=== PATIENT | female | born 1950 | race African-American/Black ===

== ENCOUNTER 2023-11-04 10:13 | Emergency (ER) | payer MEDICARE ==
--- NOTE | 2023-11-04 10:45 | ED ---
General Adult HPI - General Chief complaint: GI Bleed Stated complaint: Rectal bleeding Time Seen by Provider: 11/04/23 10:20 Source: patient, RN notes reviewed, old records reviewed Mode of arrival: ambulatory Limitations: no limitations - History of Present Illness Initial comments: This is a 73-year-old female with a past medical history significant for colectomy. Patient is to she had the colectomy in 2007. Patient states she has not had a colonoscopy since then. Patient states she has been having bright red blood per rectum occasionally since the last 6 months. Patient states is getting progressively worse and now is happening quite often. Patient denies any abdominal pain. Patient denies any chest pain difficulty breathing or shortness of breath. Patient states she is mildly lightheaded. Patient denies any fevers chills or cough or patient is any heavy diarrhea. Patient [place] any nausea vomiting. - Related Data Home Medications Medication Instructions Recorded Confirmed Losartan/Hydrochlorothiazide 1 tab PO DAILY 05/17/14 11/04/23 [Losartan-Hctz 100-25 mg Tab] ALPRAZolam [Xanax] 0.25 mg PO TID PRN 11/04/23 11/04/23 Albuterol Sulfate [Ventolin HFA] 2 puff INHALATION RT-Q6H PRN 11/04/23 11/04/23 DULoxetine HCL [Cymbalta] 60 mg PO BID 11/04/23 11/04/23 Empagliflozin [Jardiance] 25 mg PO DAILY 11/04/23 11/04/23 Meloxicam [Mobic] 7.5 mg PO BID 11/04/23 11/04/23 amLODIPine [Norvasc] 10 mg PO DAILY 11/04/23 11/04/23 glipiZIDE [Glucotrol] 5 mg PO BID 11/04/23 11/04/23 hydrOXYzine HCL [Atarax] 25 mg PO BID 11/04/23 11/04/23 traZODone HCL [Desyrel] 100 mg PO HS 11/04/23 11/04/23 Previous Rx's Medication Instructions Recorded Montelukast [Singulair] 10 mg PO HS 14 Days tab 01/23/15 Allergies Allergy/AdvReac Type Severity Reaction Status Date / Time fluticasone furoate Allergy "Respiratory Verified 11/04/23 11:34 [From [facility]] Issues" nickel [Nickel] Allergy Rash/Hives Verified 11/04/23 11:33 vilanterol Allergy "Respiratory Verified 11/04/23 11:34 [From [employer]] Issues" Review of Systems ROS Statement: Those systems with pertinent positive or pertinent negative responses have been documented in the HPI. ROS Other: All systems not noted in ROS Statement are negative. Past Medical History Past Medical History: Asthma, Diabetes Mellitus, Fibromyalgia, Hypertension, Osteoarthritis (OA), Sleep Apnea/CPAP/BIPAP Additional Past Medical History / Comment(s): IBS, HX POLYPS, STATES NOT CURRENTLY TAKING ANY MEDS FOR DIABETES BUT HAS IN PAST, HAS HEEL SPUR ON LEFT FOOT, CURRENTLY USING A CRUTCH History of Any Multi-Drug Resistant Organisms: None Reported Past Surgical History: Bowel Resection, Hysterectomy, Joint Replacement, Orthopedic Surgery Additional Past Surgical History / Comment(s): COLECTOMY for polyps, LEFT KNEE REPLACEMENT, RT ROTATOR CUFF Past Anesthesia/Blood Transfusion Reactions: No Reported Reaction Past Psychological History: Anxiety, Depression Past Alcohol Use History: None Reported Past Drug Use History: None Reported - Past Family History Father Family Medical History: Cancer Additional Family Medical History / Comment(s): Father at age 79 from lymphoma. Mother Family Medical History: Cancer Additional Family Medical History / Comment(s): Mother at age 82 from colon cancer. Brother(s) Additional Family Medical History / Comment(s): Patient has 1 brother with no major medical problems. Patient does not have any sisters. She has one son that is healthy. General Exam - General Exam Comments Initial Comments: GENERAL: Patient is well-developed and well-nourished. Patient is nontoxic and well- hydrated and is in no acute distress. ENT: Neck is soft and supple. No significant lymphadenopathy is noted. Oropharynx is clear. Moist mucous membranes. Neck has full range of motion without eliciting any pain. EYES: The sclera were anicteric and conjunctiva were pink and moist. Extraocular movements were intact and pupils were equal round and reactive to light. Eyelids were unremarkable. PULMONARY: Unlabored respirations. Good breath sounds bilaterally. No audible rales rhonchi or wheezing was noted. CARDIOVASCULAR: There is a regular rate and rhythm without any murmurs gallops or rubs. ABDOMEN: Soft and nontender with normal bowel sounds. RECTAL: No obvious hemorrhoids no area of bleeding noted SKIN: Skin is clear with no lesions or rashes and otherwise unremarkable. NEUROLOGIC: Patient is alert and oriented x3. Cranial nerves II through XII are grossly intact. Motor and sensory are also intact. Normal speech, volume and content. Symmetrical smile. MUSCULOSKELETAL: Normal extremities with adequate strength and full range of motion. LYMPHATICS: No significant lymphadenopathy is noted PSYCHIATRIC: Normal psychiatric evaluation. Limitations: no limitations Course Vital Signs 11/04/23 11/04/23 11/04/23 10:16 10:45 11:05 Temperature 97.7 F 98.5 F Pulse Rate 95 80 76 Respiratory 16 17 18 Rate Blood Pressure 177/75 139/86 120/63 O2 Sat by Pulse 99 95 95 Oximetry 11/04/23 11/04/23 12:17 13:07 Temperature 97.9 F Pulse Rate 78 81 Respiratory 17 17 Rate Blood Pressure 147/73 145/78 O2 Sat by Pulse 97 96 Oximetry Medical Decision Making - Medical Decision Making Was pt. sent in by a medical professional or institution (, PA, SCADA OPERATOR, urgent care, hospital, or longterm...) When possible be specific @ -No Did you speak to anyone other than the patient for history (EMS, parent, family, police, friend...)? What history was obtained from this source @ -No Did you review nursing and triage notes (agree or disagree)? Why? @ -I reviewed and agree with nursing and triage notes Were old charts reviewed (outside hosp., previous admission, EMS record, old EKG, old radiological studies, urgent care reports/EKG's, longterm records)? Report findings @ -No old charts were reviewed Differential Diagnosis (chest pain, altered mental status, abdominal pain women, abdominal pain men, vaginal bleeding, weakness, fever, dyspnea, syncope, headache, dizziness, GI bleed, back pain, seizure, CVA, palpatations, mental health, musculoskeletal)? @ -Differential GI Bleed: Esophageal varices, aortoenteric fistula, Nelia-Persaud, gastritis, peptic ulcer disease, diverticulosis, inflammatory bowel disease, hemorrhoids, fissure, colitis, malignancy, Meckels diverticulum, this is not meant to be an all- inclusive list. EKG interpreted by me (3pts min.). @ -As above X-rays interpreted by me (1pt min.). @ -None done CT interpreted by me (1pt min.). @ -None done U/S interpreted by me (1pt. min.). @ -None done What testing was considered but not performed or refused? (CT, X-rays, U/S, labs)? Why? @ -None What meds were considered but not given or refused? Why? @ -None Did you discuss the management of the patient with other professionals (christopher craig i.eHuber Martin, PA, SCADA OPERATOR, lab, RT, psych nurse, social research assistant, long distance operator, teacher, community service patrol officer, case filler)? Give summary @ -No Was smoking cessation discussed for >3mins.? @ -No Was critical care preformed (if so, how long)? @ -No Were there social determinants of health that impacted care today? How? (Homelessness, low income, unemployed, alcoholism, drug addiction, transportation, low edu. Level, literacy, decrease access to med. care, long term, rehab)? @ -No Was there de-escalation of care discussed even if they declined (Discuss DNR or withdrawal of care, Hospice)? DNR status @ -No What co-morbidities impacted this encounter? (DM, HTN, Smoking, COPD, CAD, Cancer, CVA, ARF, Chemo, Hep., AIDS, mental health diagnosis, sleep apnea, morbid obesity)? @ -None Was patient admitted / discharged? Hospital course, mention meds given and route, prescriptions, significant lab abnormalities, going to OR and other pertinent info. @ -I went back in the room and told the patient her lab work was normal and that I suggested admission because we have a GI doctor this week. Patient states she already has a GI doctor appointment later this week so she will be following up with him. Patient states she does not want to stay because her lab work is normal and she will follow-up outpatient. Undiagnosed new problem with uncertain prognosis? @ -No Drug Therapy requiring intensive monitoring for toxicity (Heparin, Nitro, Insulin, Cardizem)? @ -No Were any procedures done? @ -No Diagnosis/symptom? @ -GI bleed Acute, or Chronic, or Acute on Chronic? @ -Acute Uncomplicated (without systemic symptoms) or Complicated (systemic symptoms)? @ -Complicated Side effects of treatment? @ -No Exacerbation, Progression, or Severe Exacerbation? @ -No Poses a threat to life or bodily function? How? (Chest pain, [place], [place], pneumonia, PE, COPD, DKA, ARF, appy, cholecystitis, CVA, Diverticulitis, Homicidal, [place] icidal, threat to staff... and all critical care pts) @ -No - Lab Data Result diagrams: 11/04/23 10:44 11/04/23 10:44 Lab Results 11/04/23 11/04/23 11/04/23 Range/Units 10:35 10:40 10:44 WBC 4.8 (3.8-10.6) k/uL RBC 5.02 (3.80-5.40) m/uL Hgb 13.3 (11.4-16.0) gm/dL Hct 42.3 (34.0-46.0) % MCV 84.2 (80.0-100.0) fL MCH 26.4 (25.0-35.0) pg MCHC 31.4 (31.0-37.0) g/dL RDW 15.3 (11.5-15.5) % Plt Count 361 (150-450) k/uL MPV 7.1 Neutrophils % 52 % Lymphocytes % 38 % Monocytes % 6 % Eosinophils % 1 % Basophils % 1 % Neutrophils # 2.5 (1.3-7.7) k/uL Lymphocytes # 1.8 (1.0-4.8) k/uL Monocytes # 0.3 (0-1.0) k/uL Eosinophils # 0.1 (0-0.7) k/uL Basophils # 0.0 (0-0.2) k/uL Hypochromasia Slight PT (10.0-12.5) sec INR (<1.2) APTT (22.0-30.0) sec Sodium (137-145) mmol/L Potassium (3.5-5.1) mmol/L Chloride (98-107) mmol/L Carbon Dioxide (22-30) mmol/L Anion Gap mmol/L BUN (7-17) mg/dL Creatinine (0.52-1.04) mg/dL Est GFR (CKD-EPI)AfAm (>60 ml/min/1.73 sqM) Est GFR (CKD-EPI)NonAf (>60 ml/min/1.73 sqM) Glucose (74-99) mg/dL Calcium (8.4-10.2) mg/dL Magnesium (1.6-2.3) mg/dL Total Bilirubin (0.2-1.3) mg/dL AST (14-36) U/L ALT (4-34) U/L Alkaline Phosphatase (38-126) U/L Troponin I (0.000-0.034) ng/mL Total Protein (6.3-8.2) g/dL Albumin (3.5-5.0) g/dL Blood Type O Positive Blood Type Confirm Blood Type Recheck No Previous Record Bld Type Recheck Status CABO Indicated Antibody Screen NEGATIVE Spec Expiration Date 11/07/2023234311/04/23 11/04/23 11/04/23 Range/Units 10:44 10:44 10:44 WBC (3.8-10.6) k/uL RBC (3.80-5.40) m/uL Hgb (11.4-16.0) gm/dL Hct (34.0-46.0) % MCV (80.0-100.0) fL MCH (25.0-35.0) pg MCHC (31.0-37.0) g/dL RDW (11.5-15.5) % Plt Count (150-450) k/uL MPV Neutrophils % % Lymphocytes % % Monocytes % % Eosinophils % % Basophils % % Neutrophils # (1.3-7.7) k/uL Lymphocytes # (1.0-4.8) k/uL Monocytes # (0-1.0) k/uL Eosinophils # (0-0.7) k/uL Basophils # (0-0.2) k/uL Hypochromasia PT 10.2 (10.0-12.5) sec INR 0.9 (<1.2) APTT 25.9 (22.0-30.0) sec Sodium 141 (137-145) mmol/L Potassium 4.1 (3.5-5.1) mmol/L Chloride 107 (98-107) mmol/L Carbon Dioxide 27 (22-30) mmol/L Anion Gap 7 mmol/L BUN 15 (7-17) mg/dL Creatinine 0.63 (0.52-1.04) mg/dL Est GFR (CKD-EPI)AfAm >90 (>60 ml/min/1.73 sqM) Est GFR (CKD-EPI)NonAf 89 (>60 ml/min/1.73 sqM) Glucose 132 H (74-99) mg/dL Calcium 9.6 (8.4-10.2) mg/dL Magnesium 2.1 (1.6-2.3) mg/dL Total Bilirubin 1.1 (0.2-1.3) mg/dL AST 27 (14-36) U/L ALT 24 (4-34) U/L Alkaline Phosphatase 126 (38-126) U/L Troponin I <0.012 (0.000-0.034) ng/mL Total Protein 7.5 (6.3-8.2) g/dL Albumin 4.7 (3.5-5.0) g/dL Blood Type Blood Type Confirm Blood Type Recheck Bld Type Recheck Status Antibody Screen Spec Expiration Date 11/04/23 Range/Units 11:35 WBC (3.8-10.6) k/uL RBC (3.80-5.40) m/uL Hgb (11.4-16.0) gm/dL Hct (34.0-46.0) % MCV (80.0-100.0) fL MCH (25.0-35.0) pg MCHC (31.0-37.0) g/dL RDW (11.5-15.5) % Plt Count (150-450) k/uL MPV Neutrophils % % Lymphocytes % % Monocytes % % Eosinophils % % Basophils % % Neutrophils # (1.3-7.7) k/uL Lymphocytes # (1.0-4.8) k/uL Monocytes # (0-1.0) k/uL Eosinophils # (0-0.7) k/uL Basophils # (0-0.2) k/uL Hypochromasia PT (10.0-12.5) sec INR (<1.2) APTT (22.0-30.0) sec Sodium (137-145) mmol/L Potassium (3.5-5.1) mmol/L Chloride (98-107) mmol/L Carbon Dioxide (22-30) mmol/L Anion Gap mmol/L BUN (7-17) mg/dL Creatinine (0.52-1.04) mg/dL Est GFR (CKD-EPI)AfAm (>60 ml/min/1.73 sqM) Est GFR (CKD-EPI)NonAf (>60 ml/min/1.73 sqM) Glucose (74-99) mg/dL Calcium (8.4-10.2) mg/dL Magnesium (1.6-2.3) mg/dL Total Bilirubin (0.2-1.3) mg/dL AST (14-36) U/L ALT (4-34) U/L Alkaline Phosphatase (38-126) U/L Troponin I (0.000-0.034) ng/mL Total Protein (6.3-8.2) g/dL Albumin (3.5-5.0) g/dL Blood Type Blood Type Confirm O Positive Blood Type Recheck Bld Type Recheck Status Antibody Screen Spec Expiration Date Disposition Clinical Impression: GI bleed Disposition: HOME SELF-CARE Instructions (If sedation given, give patient instructions): Gastrointestinal Bleeding (ED) Additional Instructions: Patient should follow-up with a GI doctor as scheduled Is patient prescribed a controlled substance at d/c from ED?: No Referrals: Chadd Smith MD [Primary Care Provider] - 1-2 days Time of Disposition: 13:31
[2023-11-04] MEDS: SODIUM CHLORIDE 0.9% 500 ML 500 ML IV STA (10:47)
[2023-11-04 11:15] LABS: Basophils % (A) 1 %; Eosinophils # (A) 0.1 k/uL (0-0.7); Eosinophils % (A) 1 %; HCT 42.3 % (34.0-46.0); HGB 13.3 gm/dL (11.4-16.0); Hypochromasia Slight; Lymphocytes # (A) 1.8 k/uL (1.0-4.8); Lymphocytes % (A) 38 %; MCH 26.4 pg (25.0-35.0); MCHC 31.4 g/dL (31.0-37.0); MCV 84.2 fL (80.0-100.0); Mean Platelet Volume 7.1; Monocytes # (A) 0.3 k/uL (0-1.0); Monocytes % (A) 6 %; Neutrophils # (A) 2.5 k/uL (1.3-7.7); Neutrophils % (A) 52 %; Platelet Count 361 k/uL (150-450); RBC 5.02 m/uL (3.80-5.40); RDW 15.3 % (11.5-15.5); WBC 4.8 k/uL (3.8-10.6)
[2023-11-04 11:23] LABS: ALT 24 U/L (4-34); AST 27 U/L (14-36); African American GFR (CKD) >90 (>60 ml/min/1.73 sqM); Albumin 4.7 g/dL (3.5-5.0); Alkaline Phosphatase 126 U/L (38-126); Anion Gap 7 mmol/L; Blood Urea Nitrogen 15 mg/dL (7-17); Calcium 9.6 mg/dL (8.4-10.2); Carbon Dioxide 27 mmol/L (22-30); Chloride 107 mmol/L (98-107); Glucose 132 mg/dL (74-99); Magnesium 2.1 mg/dL (1.6-2.3); Non-African American GFR(CKD) 89 (>60 ml/min/1.73 sqM); Potassium 4.1 mmol/L (3.5-5.1); Sodium 141 mmol/L (137-145); Total Bilirubin 1.1 mg/dL (0.2-1.3); Total Protein 7.5 g/dL (6.3-8.2)
[2023-11-04 11:28] LABS: INR 0.9 (<1.2); Partial Thromboplastin Time 25.9 sec (22.0-30.0); Prothrombin Time 10.2 sec (10.0-12.5)
[2023-11-04 12:26] VITALS: RESP 17; TEMP 97.9
[2023-11-04 13:08] VITALS: BP 145/78; PULSE 81
== END 2023-11-04 13:43 | disposition home or self-care (01) ==
LOC: EC 10:13
DX: K92.2 Gastrointestinal hemorrhage, unspecified (principal); Z90.49 Acquired absence of other specified parts of digestive tract
CPT/HCPCS: 36415; 80053; 83735; 84484; 85025; 85610; 85730; 86850; 86900; 86901; 96360; 99285

== ENCOUNTER 2024-10-16 10:30 | Inpatient (IN) | payer MEDICARE ==
--- NOTE | 2024-10-16 11:11 | ED ---
GI Bleed HPI - General Chief complaint: GI Bleed Stated complaint: Blood in Stool Time Seen by Provider: 10/16/24 11:11 Source: patient Mode of arrival: ambulatory Limitations: no limitations - History of Present Illness Initial comments: 74-year-old female with a past medical history significant of diabetes mellitus, asthma, hypertension, fibromyalgia and IBS presenting to the ER for evaluation of blood in stool. Patient reports for the past 2 years she has been having progressively worsening blood in her stool. She states it was bright red then black and tarry and recently it is brown. Patient is not on blood thinners. She states she is following up with a colorectal surgeon, Dr. Reyes, out of [place], [place]. She was scheduled for a hemorrhoidectomy on 10/13/[address] Reyes but she cancelled it as her hgb was 9. Patient reports over the past 3 months she has lost approximately 34 pounds and admits to night sweats and chills. Patient denies known fevers, nausea, vomiting. Patient states she feels extremely weak with mild shortness of breath. Denies chest pain. Denies a history of ulcerative colitis, Crohn's disease or diverticulitis. Patient denies any prior abdominal surgeries but upon chart review there appears to be a history of a bowel resection, patient denies this on multiple occassions. Admits to hysterectomy. Patient had colonoscopy one year ago and had polyps removed. Patient states she stopped taking her antihypertensive and diabetes medications as prescribed by PCP as she has been feeling unwell. Patient is undergoing iron transfusion following up with Dr. Gonzalez. Patient is a Adventist and refuses blood products. No other complaints at this time. History is slightly limited as patient is a poor historian. - Related Data Home Medications Medication Instructions Recorded Confirmed Albuterol Sulfate [Ventolin HFA] 2 puff INHALATION RT-Q6H PRN 11/04/23 10/16/24 DULoxetine HCL [Cymbalta] 60 mg PO DAILY 11/04/23 10/16/24 Meloxicam [Mobic] 7.5 mg PO DAILY PRN 11/04/23 10/16/24 hydrOXYzine HCL [Atarax] 25 mg PO BID 11/04/23 10/16/24 traZODone HCL [Desyrel] 100 mg PO HS 11/04/23 10/16/24 Hydrocortisone Oint 1 applic TOPICAL BID PRN 10/04/24 10/16/24 [Hydrocortisone 2.5% Oint] Loratadine 10 mg PO DAILY 10/04/24 10/16/24 Montelukast [Singulair] 10 mg PO DAILY 10/04/24 10/16/24 Gabapentin [Neurontin] 300 mg PO BID 10/16/24 10/16/24 Multivitamins, Thera [Multivitamin 1 tab PO DAILY 10/16/24 10/16/24 (formulary)] Potassium Chloride [Klor-Con 8] 8 meq PO DAILY 10/16/24 10/16/24 Allergies Allergy/AdvReac Type Severity Reaction Status Date / Time fluticasone furoate Allergy "Respiratory Verified 10/16/24 13:44 [From Breo Ellipta] Issues" nickel [Nickel] Allergy Rash/Hives Verified 10/16/24 13:44 vilanterol Allergy "Respiratory Verified 10/16/24 13:44 [From Breo Ellipta] Issues" Review of Systems ROS Statement: Those systems with pertinent positive or pertinent negative responses have been documented in the HPI. ROS Other: All systems not noted in ROS Statement are negative. Past Medical History Past Medical History: Asthma, Diabetes Mellitus, Fibromyalgia, Hypertension, Osteoarthritis (OA), Sleep Apnea/CPAP/BIPAP Additional Past Medical History / Comment(s): IBS, HX POLYPS, STATES NOT CURRENTLY TAKING ANY MEDS FOR DIABETES BUT HAS IN PAST, HAS HEEL SPUR ON LEFT FOOT, CURRENTLY USING A CRUTCH History of Any Multi-Drug Resistant Organisms: None Reported Past Surgical History: Bowel Resection, Hysterectomy, Joint Replacement, Orthopedic Surgery Additional Past Surgical History / Comment(s): COLECTOMY for polyps, LEFT KNEE REPLACEMENT, RT ROTATOR CUFF Past Anesthesia/Blood Transfusion Reactions: No Reported Reaction Past Psychological History: Anxiety, Depression Smoking Status: Never smoker - Past Family History Father Family Medical History: Cancer Additional Family Medical History / Comment(s): Father at age 79 from lymphoma. Mother Family Medical History: Cancer Additional Family Medical History / Comment(s): Mother at age 82 from colon cancer. Brother(s) Additional Family Medical History / Comment(s): Patient has 1 brother with no major medical problems. Patient does not have any sisters. She has one son that is healthy. General Exam Limitations: no limitations General appearance: alert, in no apparent distress Respiratory exam: Present: normal lung sounds bilaterally. Absent: respiratory distress, wheezes, rales, rhonchi, stridor Cardiovascular Exam: Present: regular rate, normal rhythm, normal heart sounds. Absent: systolic murmur, diastolic murmur, rubs, gallop, clicks GI/Abdominal exam: Present: soft, tenderness (LLQ), normal bowel sounds Rectal exam: Present: normal inspection, normal rectal tone Extremities exam: Present: normal inspection, full ROM, normal capillary refill. Absent: tenderness, pedal edema, joint swelling, calf tenderness Neurological exam: Present: alert, oriented X3, CN II-XII intact Skin exam: Present: warm, dry, intact, normal color. Absent: rash Course Vital Signs 10/16/24 10/16/24 10:39 14:41 Temperature 97.6 F Pulse Rate 98 88 Respiratory 20 18 Rate Blood Pressure 132/74 127/68 O2 Sat by Pulse 100 96 Oximetry - Reevaluation(s) Reevaluation #1: 10/16/24 14:16 Case discussed with on-call general surgery, Dr. Monroe. She is agreeable to be on consult with medicine admission. 10/16/24 14:43 Case discussed with , for admission. Medical Decision Making - Medical Decision Making Was pt. sent in by a medical professional or institution (Dr. PA, SERVICE ORDER TAKER, urgent care, hospital, or long-term...) When possible be specific @ -No Did you speak to anyone other than the patient for history (EMS, parent, family, police, friend...)? What history was obtained from this source @ -No Did you review nursing and triage notes (agree or disagree)? Why? @ -I reviewed and agree with nursing and triage notes Were old charts reviewed (outside hosp., previous admission, EMS record, old EKG, old radiological studies, urgent care reports/EKG's, long-term records)? Report findings @ -Prior ER visits Differential Diagnosis (chest pain, altered mental status, abdominal pain women, abdominal pain men, vaginal bleeding, weakness, fever, dyspnea, syncope, headache, dizziness, GI bleed, back pain, seizure, CVA, palpatations, mental health, musculoskeletal)? @ -Differential GI Bleed: Esophageal varices, aortoenteric fistula, Nelia- Persaud, gastritis, peptic ulcer disease, diverticulosis, inflammatory bowel disease, hemorrhoids, fissure, colitis, malignancy, Meckel's diverticulum, this is not meant to be an all-inclusive list. EKG interpreted by me (3pts min.). @ -None done X-rays interpreted by me (1pt min.). @ -None done CT interpreted by me (1pt min.). @ -CT abdomen pelvis showing prominent thickening throughout the rectum with multiple enlarged lymph nodes. Correlate for rectal neoplasm. U/S interpreted by me (1pt. min.). @ -None done What testing was considered but not performed or refused? (CT, X-rays, U/S, labs)? Why? @ -None What meds were considered but not given or refused? Why? @ -Blood transfusion was considered but patient refused as she is a Adventist. Did you discuss the management of the patient with other professionals (professionals i.e. , PA, SERVICE ORDER TAKER, lab, RT, psych nurse, clinical social work therapist, event coordinator, teacher, commissioned security officer, showcase maker)? Give summary @ -Case discussed with on-call general surgeon, Dr. Monroe who is agreeable to be on consult with medicine admission. Case discussed with city call, Dr. Garcia, accepts admission. Was smoking cessation discussed for >3mins.? @ -No Was critical care preformed (if so, how long)? @ -No Were there social determinants of health that impacted care today? How? (Homelessness, low income, unemployed, alcoholism, drug addiction, transportation, low edu. Level, literacy, decrease access to med. care, detention, rehab)? @ -Patient is a Adventist and refused blood products. Was there de-escalation of care discussed even if they declined (Discuss DNR or withdrawal of care, Hospice)? DNR status @ -No What co-morbidities impacted this encounter? (DM, HTN, Smoking, COPD, CAD, Cancer, CVA, ARF, Chemo, Hep., AIDS, mental health diagnosis, sleep apnea, morbid obesity)? @ -HTN/DM Was patient admitted / discharged? Hospital course, mention meds given and route, prescriptions, significant lab abnormalities, going to OR and other pertinent info. @ -Admitted. 74-year-old female presented to the ER for evaluation of rectal bleeding. Upon rooming history and physical exam completed. Vitals within acceptable limits. Patient in no signs of acute distress resting comfortably on stretcher. Laboratory studies obtained significant for WBC of 10.6, hemoglobin 8.0. CMP unimpressive. Stool occult negative. Urine analysis no infection. CT abdomen pelvis showing a prominent thickened rectum with multiple enlarged lymph nodes correlate for rectal neoplasm. Symptomatic control, with improvement. Patient refusing blood products on numerous occasion as she is a Adventist. I discussed results with patient including concern of possible malignancy. I discussed with patient that I would like to reach out to Dr. Reyes and she refused stating she would no longer like to follow-up with him. Patient is agreeable to follow-up with another surgeon therefore I discussed ca se with on-call general surgery, Dr. Monroe who accepts consultation with medicine admission. Patient will be admitted to [facility] call, Dr. Garcia. Hold NSAID's and blood thinning agents. Patient agreeable for admission. Patient admitted in stable condition. Case discussed with ED attending, Dr. Baer. Undiagnosed new problem with uncertain prognosis? @ -Yes Drug Therapy requiring intensive monitoring for toxicity (Heparin, Nitro, Insulin, Cardizem)? @ -No Were any procedures done? @ -No Diagnosis/symptom? @ -Abnormal CT/rectal thickening/anemia Acute, or Chronic, or Acute on Chronic? @ -Acute Uncomplicated (without systemic symptoms) or Complicated (systemic symptoms)? @ -Complicated Side effects of treatment? @ -No Exacerbation, Progression, or Severe Exacerbation? @ -No Poses a threat to life or bodily function? How? (Chest pain, [place], [place], pneumonia, PE, COPD, DKA, ARF, appy, cholecystitis, CVA, Diverticulitis, Homicidal, Suicidal, threat to staff... and all critical care pts) @ -Yes, cannot rule out malignancy - Lab Data Result diagrams: 10/16/24 11:38 10/16/24 11:38 Lab Results 10/16/24 10/16/24 10/16/24 Range/Units 11:38 11:38 11:38 WBC 10.64 H (4.50-10.00) 10*3/uL RBC 3.45 L (4.10-5.20) 10*6/uL Hgb 8.0 L (12.0-15.0) g/dL Hct 25.7 L (37.2-46.3) % MCV 74.5 L (80.0-97.0) fL MCH 23.2 L (27.0-32.0) pg MCHC 31.1 L (32.0-37.0) g/dL Plt Count 535 H (140-440) 10*3/uL MPV 8.0 L (9.5-12.2) fL Immature Gran % (Auto) 0.5 % Neutrophils % 74.3 % Lymphocytes % 17.1 % Monocytes % 6.9 % Eosinophils % 0.7 % Basophils % 0.5 % Immature Gran # 0.05 H (0.00-0.04) 10*3/uL Neutrophils # 7.92 H (1.80-7.70) 10*3/uL Lymphocytes # 1.82 (0.90-5.00) 10*3/uL Monocytes # 0.73 (0.20-1.00) 10*3/uL Eosinophils # 0.07 (0.04-0.35) 10*3/uL Basophils # 0.05 (0.00-0.10) 10*3/uL Sodium 135 L (137-145) mmol/L Potassium 4.6 (3.5-5.1) mmol/L Chloride 104 (98-107) mmol/L Carbon Dioxide 26 (22-30) mmol/L Anion Gap 5 mmol/L BUN 11 (7-17) mg/dL Creatinine 0.56 (0.52-1.04) mg/dL Est GFR (CKD-EPI)AfAm >90 (>60 ml/min/1.73 sqM) Est GFR (CKD-EPI)NonAf >90 (>60 ml/min/1.73 sqM) Glucose 100 H (74-99) mg/dL Plasma Lactic Acid Erick 1.0 (0.7-2.0) mmol/L Calcium 9.0 (8.4-10.2) mg/dL Total Bilirubin 0.9 (0.2-1.3) mg/dL AST 26 (14-36) U/L ALT 10 (4-34) U/L Alkaline Phosphatase 71 (38-126) U/L Total Protein 6.5 (6.3-8.2) g/dL Albumin 3.4 L (3.5-5.0) g/dL Amylase 34 (30-110) U/L Lipase 14 L (23-300) U/L Urine Color Urine Appearance (Clear) Urine pH (5.0-8.0) Ur Specific Simpson (1.001-1.035) Urine Protein (Negative) Urine Glucose (UA) (Negative) Urine Ketones (Negative) Urine Blood (Negative) Urine Nitrite (Negative) Urine Bilirubin (Negative) Urine Urobilinogen (<2.0) mg/dL Ur Leukocyte Esterase (Negative) Urine RBC (0-5) /hpf Urine WBC (0-5) /hpf Ur Squamous Epith Cells (0-4) /hpf Hyaline Casts (0-2) /lpf Urine Mucus (None) /hpf Stool Occult Blood (Negative) Blood Type Blood Type Recheck Bld Type Recheck Status Antibody Screen Spec Expiration Date 10/16/24 10/16/24 10/16/24 Range/Units 11:38 12:06 12:50 WBC (4.50-10.00) 10*3/uL RBC (4.10-5.20) 10*6/uL Hgb (12.0-15.0) g/dL Hct (37.2-46.3) % MCV (80.0-97.0) fL MCH (27.0-32.0) pg MCHC (32.0-37.0) g/dL Plt Count (140-440) 10*3/uL MPV (9.5-12.2) fL Immature Gran % (Auto) % Neutrophils % % Lymphocytes % % Monocytes % % Eosinophils % % Basophils % % Immature Gran # (0.00-0.04) 10*3/uL Neutrophils # (1.80-7.70) 10*3/uL Lymphocytes # (0.90-5.00) 10*3/uL Monocytes # (0.20-1.00) 10*3/uL Eosinophils # (0.04-0.35) 10*3/uL Basophils # (0.00-0.10) 10*3/uL Sodium (137-145) mmol/L Potassium (3.5-5.1) mmol/L Chloride (98-107) mmol/L Carbon Dioxide (22-30) mmol/L Anion Gap mmol/L BUN (7-17) mg/dL Creatinine (0.52-1.04) mg/dL Est GFR (CKD-EPI)AfAm (>60 ml/min/1.73 sqM) Est GFR (CKD-EPI)NonAf (>60 ml/min/1.73 sqM) Glucose (74-99) mg/dL Plasma Lactic Acid Erick (0.7-2.0) mmol/L Calcium (8.4-10.2) mg/dL Total Bilirubin (0.2-1.3) mg/dL AST (14-36) U/L ALT (4-34) U/L Alkaline Phosphatase (38-126) U/L Total Protein (6.3-8.2) g/dL Albumin (3.5-5.0) g/dL Amylase (30-110) U/L Lipase (23-300) U/L Urine Color Yellow Urine Appearance Clear (Clear) Urine pH 6.0 (5.0-8.0) Ur Specific Simpson 1.037 H (1.001-1.035) Urine Protein Trace H (Negative) Urine Glucose (UA) Negative (Negative) Urine Ketones Negative (Negative) Urine Blood Negative (Negative) Urine Nitrite Negative (Negative) Urine Bilirubin Negative (Negative) Urine Urobilinogen <2.0 (<2.0) mg/dL Ur Leukocyte Esterase Trace H (Negative) Urine RBC 1 (0-5) /hpf Urine WBC 7 H (0-5) /hpf Ur Squamous Epith Cells <1 (0-4) /hpf Hyaline Casts 1 (0-2) /lpf Urine Mucus Occasional H (None) /hpf Stool Occult Blood Negative (Negative) Blood Type O Positive Blood Type Recheck O Pos Bld Type Recheck Status No Antibody Screen NEGATIVE Spec Expiration Date 10/19/20242337 - Radiology Data Radiology results: report reviewed, image reviewed Disposition Clinical Impression: Abnormal CT scan, Anemia Disposition: ADMITTED IP TO THIS [facility] Condition: Stable Referrals: None,Stated [Primary Care Provider] - 1-2 days Time of Disposition: 14:24
[2024-10-16 11:43] LABS: Basophils # (A) 0.05 10*3/uL (0.00-0.10); Basophils % (A) 0.5 %; Eosinophils # (A) 0.07 10*3/uL (0.04-0.35); Eosinophils % (A) 0.7 %; HCT 25.7 % (37.2-46.3); Lymphocytes # (A) 1.82 10*3/uL (0.90-5.00); Lymphocytes % (A) 17.1 %; MCH 23.2 pg (27.0-32.0); MCHC 31.1 g/dL (32.0-37.0); MCV 74.5 fL (80.0-97.0); Monocytes # (A) 0.73 10*3/uL (0.20-1.00); Monocytes % (A) 6.9 %; Neutrophils # (A) 7.92 10*3/uL (1.80-7.70); Neutrophils % (A) 74.3 %; Platelet Count 535 10*3/uL (140-440); RBC 3.45 10*6/uL (4.10-5.20); RDW 20.3 % (11.5-14.5); WBC 10.64 10*3/uL (4.50-10.00)
[2024-10-16 11:55] LABS: ALT 10 U/L (4-34); African American GFR (CKD) >90 (>60 ml/min/1.73 sqM); Albumin 3.4 g/dL (3.5-5.0); Amylase 34 U/L (30-110); Anion Gap 5 mmol/L; Blood Urea Nitrogen 11 mg/dL (7-17); Carbon Dioxide 26 mmol/L (22-30); Chloride 104 mmol/L (98-107); Glucose 100 mg/dL (74-99); Lipase 14 U/L (23-300); Non-African American GFR(CKD) >90 (>60 ml/min/1.73 sqM); Sodium 135 mmol/L (137-145); Total Bilirubin 0.9 mg/dL (0.2-1.3); Total Protein 6.5 g/dL (6.3-8.2)
[2024-10-16 11:58] LABS: AST 26 U/L (14-36); Alkaline Phosphatase 71 U/L (38-126); Potassium 4.6 mmol/L (3.5-5.1)
[2024-10-16] MEDS: ACETAMINOPHEN TAB 325 MG TAB PO STA (12:28)
[2024-10-16] MEDS: PANTOPRAZOLE 40 MG/10 ML VIAL IVP STA (12:29)
[2024-10-16] MEDS: SODIUM CHLORIDE 0.9% 1,000 ML IV ONE (12:30)
[2024-10-16] MEDS: HYDROmorphone 0.5 MG/0.5 ML SYRINGE IVP STA (12:34)
[2024-10-16 13:22] LABS: Appearance,Urine Clear (Clear); Bilirubin,Urine Negative (Negative); Blood,Urine Negative (Negative); Color,Urine Yellow; Glucose,Urine (UA) Negative (Negative); Hyaline Casts,Urine 1 /lpf (0-2); Ketones,Urine Negative (Negative); Leukocyte Esterase,Urine Trace (Negative); Mucus,Urine Occasional /hpf; Nitrite,Urine Negative (Negative); Protein,Urine Trace (Negative); RBC,Urine 1 /hpf (0-5); Specific Gravity,Urine 1.037 (1.001-1.035); Squamous Epithelial Cell,Urine <1 /hpf (0-4); Urobilinogen,Urine <2.0 mg/dL (<2.0); WBC,Urine 7 /hpf (0-5)
--- NOTE | 2024-10-16 13:35 | CT ---
EXAMINATION TYPE: CT abdomen pelvis w con DATE OF EXAM: 10/16/2024 1:11 PM COMPARISON: None. CLINICAL INDICATION: Female, 74 years old with history of rectal bleeding/LLQ abd pain, rectal bleedi ng TECHNIQUE: Axial images were obtained from above the diaphragm to the pubic rami in the axial plane a t 5 mm thick sections. Reconstructed images are reviewed on the computer in the coronal plane. CONTRAST: 100 mL of Isovue 300. Study performed without Oral Contrast DLP: 2112.4 mGycm, Automated exposure control for dose reduction was used. FINDINGS: Limited CT sections are obtained the lung bases. The lung bases are clear. CT ABDOMEN: Liver: Portion of the liver visualized appears normal. Spleen: Normal Pancreas: Normal Adrenal glands: The adrenal glands are normal. Gallbladder: Normal Kidneys: No masses are evident. No hydronephrosis is present. There are several cysts on the bilate ral kidneys. This includes an exophytic cyst measuring 2.2 cm posterior upper left kidney a posterior lateral right renal cortical cyst measuring 2.3 cm and a 1.6 cm anterior lateral mid inferior left r enal cortical cyst. Additional smaller cortical renal cysts are evident. Delayed images were obtaine d through the kidneys, which remain unremarkable. Aorta: Minimal Vascular calcification is within the aorta. Inferior vena cava: Normal. CT PELVIS: Diverticulosis without acute diverticulitis is present within the pelvis. Postsurgical bowel changes within the lower right hemipelvis. Studies without oral contrast limiting bowel evaluation. There is prominent thickening of the rectum. Correlate for neoplasm. Perirectal small lymph nodes are present. There is an enlarged 1.3 cm perirectal lymph node anterior to the sacrum. No bowel obstruc tion is evident. The descending colon is decompressed. Appendix: Not identified Urinary bladder: Decompressed with limited evaluation. Genitourinary structures: Uterus and ovaries are not identified. Osseous structures: No suspicious lytic or sclerotic lesions. Vacuum phenomenon is at the symphysis p ubis. Sacroiliac joint degenerative vacuum phenomenon is present. Facet degenerative changes are with in the lumbar spine. IMPRESSION: 1. Prominent thickening through the rectum with an enlarged multiple small lymph nodes. Correlate fo r rectal neoplasm. [facility], , 10/16/2024 1:32 PM
[2024-10-16] MEDS ORDERED: NALOXONE 0.4 MG/ML 1 ML VIAL IV PRN (14:41)
[2024-10-16] MEDS: SODIUM CHLORIDE 0.9% 1,000 ML IV SCH (15:21)
[2024-10-16] MEDS: HYDROmorphone 0.5 MG/0.5 ML SYRINGE IVP PRN (16:05)
[2024-10-16] MEDS ORDERED: MELOXICAM 7.5 MG TAB PO PRN (17:11)
[2024-10-16] MEDS ORDERED: HYDROCORTISONE 1% OINT 28.35 GM TUBE TOPICAL PRN (17:11)
[2024-10-16] MEDS: ACETAMINOPHEN TAB 325 MG TAB PO PRN (17:45)
[2024-10-16 20:36] LABS: Glucose,Whole Blood 81 mg/dL (70-110)
[2024-10-16] MEDS: GABAPENTIN 300 MG CAP PO SCH (21:24)
[2024-10-16] MEDS: traZODone HCL 100 MG TAB PO SCH (21:24)
[2024-10-16] MEDS: hydrOXYzine HCL 25 MG TAB PO SCH (21:49)
--- NOTE | 2024-10-17 03:42 | HP ---
HISTORY AND PHYSICAL HISTORY OF PRESENT ILLNESS: A 74-year-old female with history of diabetes mellitus, asthma, hypertension, fibromyalgia, and IBS, has been having blood in her stool for 2 years with diarrhea, status post colectomy, bright red and tarry. She is not on blood thinners. She saw the colorectal surgeon, Dr. Reyes in [place], [place]. She had a colonoscopy a year ago, which showed a couple of polyps and no other issues, scheduled for hemorrhoidectomy on 10/13/[address] Reyes cancelled as hemoglobin was 9. She has lost 34 pounds. Admits to night sweats and chills. Denies fevers, nausea, or vomiting. She is extremely weak with shortness of breath. She denies history of ulcerative colitis, Crohn disease, or diverticulitis. She had a bowel resection due to possible colectomy, admits to hysterectomy. Stopped taking antihypertensive and diabetes medicines as she was feeling unwell. She did undergo iron transfusion. Follow up with Dr. Gonzalez. She is a Denominational and refuses blood products. HOME MEDICATIONS: 1. Mobic. 2. Atarax. 3. Desyrel. 4. Cymbalta. 5. Ventolin. 6. Loratadine. 7. Singulair. 8. Neurontin. 9. Multivitamin. ALLERGIES: Breo, fluticasone. REVIEW OF SYSTEMS: 14-point review of systems otherwise negative. PAST MEDICAL HISTORY: Asthma; diabetes mellitus; fibromyalgia; hypertension; osteoarthritis; sleep apnea, noncompliant with the CPAP, stopped it a couple of years ago; anxiety; depression. SURGERIES: Joint replacement, orthopedic surgery, bowel resection, hysterectomy, rotator cuff surgery. FAMILY HISTORY: Mother with cancer. Brother with no major medical problems. Mom had colon cancer. Dad had a possible lymphoma. PHYSICAL EXAMINATION: VITAL SIGNS: Blood pressure is 127 to 135 over 70s to 80s, O2 96-100, temperature 97.6, pulse 88-98, respiratory rate 20. LUNGS: Decreased breath sounds, scattered wheeze. CARDIOVASCULAR: S1, S2. ABDOMEN: Soft, obese, nontender. HEMATOLOGIC: 2+ edema. LABS: White count 10.64, hemoglobin is 8.0. Sodium 135, potassium 4.6, albumin 3.4. Urine is negative. IMAGING: Abdominal CT scan shows possible bowel ischemia, possibly obstruction. Anemia. PLAN: Wait for surgical consult. Continue home medicines. PROGNOSIS: Guarded. MMODL / IJN: [id number] /
[2024-10-17 06:32] LABS: Glucose,Whole Blood 93 mg/dL (70-110)
[2024-10-17] MEDS: PANTOPRAZOLE 40 MG TABLET PO SCH (06:38)
[2024-10-17] MEDS: IPRATROPIUM-ALBUTEROL 3 ML NEB INHALATION SCH (08:28)
[2024-10-17] MEDS: MULTIVITAMINS, THERA 1 EACH TAB PO SCH (09:02)
[2024-10-17] MEDS: LORATADINE 10 MG TAB PO SCH (09:02)
[2024-10-17] MEDS: DULoxetine HCL 60 MG CAPSULE.DR PO SCH (09:02)
[2024-10-17] MEDS: MONTELUKAST 10 MG TAB PO SCH (09:04)
[2024-10-17] MEDS: SODIUM FERRIC GLUCONAT-SUCROSE 125 MG in SODIUM CHLORIDE 0.9% 100 ML IVPB SCH (10:18)
[2024-10-17] MEDS: POTASSIUM CHLORIDE ER 10 MEQ TAB.ER.PRT PO SCH (10:18)
[2024-10-17 10:55] LABS: Glucose,Whole Blood 88 mg/dL (70-110)
[2024-10-17] MEDS: PEG 3350 (236 GM/BTL) + LYTES 4,000 ML BOTTLE PO ONE (13:53)
[2024-10-17] MEDS: LACTULOSE 20 GM/30 ML CUP PO ONE (13:53)
--- NOTE | 2024-10-17 14:08 | P.GSCN ---
History of Present Illness Consult date: 10/17/24 History of present illness: CHIEF COMPLAINT: GI bleed HISTORY OF PRESENT ILLNESS: This is a 74-year-old female who presented to the hospital with bright red blood in her stool. Patient reports that she has had blood in her stools for several weeks. Over the last few days the blood has become more reddish-brown in color and having clots. She was initially scheduled for a hemorrhoid surgery on October 13 but patient reports she canceled her surgery because she wanted it done at a different facility and that her hemoglobin was at 9. Patient is a Jehovah witness and does not want to receive blood products. She reports her last colonoscopy was 2 years ago and she had colon polyps removed. She does have a known history of a colectomy for polyps about 10 years ago. She had a CT scan abdomen and pelvis that had shown thickening in the rectum into correlate for a rectal neoplasm. There was also noted to have enlarged lymph nodes. Her hemoglobin was low at 8. Patient denies any abdominal pain. She denies being on any blood thinners. PAST MEDICAL HISTORY: See below PAST SURGICAL HISTORY: See below MEDICATIONS: See below ALLERGIES: See below SOCIAL HISTORY: No illicit drug use. REVIEW OF SYSTEMS: CONSTITUTIONAL: Denies fever or chills. HEENT: Denies blurred vision, vision changes, or eye pain. Denies hemoptysis CARDIOVASCULAR: Denies chest pain or pressure. RESPIRATORY: No shortness of breath. GASTROINTESTINAL: See HPI for pertinent findings HEMATOLOGIC: Denies bleeding disorders. GENITOURINARY: Denies any blood in urine or increased urinary frequency. SKIN: Denies pruitis. Denies rash. PHYSICAL EXAM: VITAL SIGNS: Reviewed GENERAL: Well-developed in no acute distress. HEENT: No sclera icterus. Extraocular movements grossly intact. Moist buccal mucosa. Head is atraumatic, normocephalic. No nasal drainage. ABDOMEN: Soft. Obese. Nondistended. Nontender NEUROLOGIC: Alert and oriented. Cranial nerves II through XII grossly intact. LABORATORY DATA: WBC 10.64 Hgb 8.0 platelets 535 Sodium is 135 potassium 4.6 creatinine 0.56 Lactic acid 1.0 Stool for occult blood negative IMAGING: CT scan abdomen pelvis reports prominent thickening through the rectum with enlarged multiple small lymph nodes. Correlate for rectal neoplasm. ASSESSMENT: 1. Prominent thickening through rectum with large multiple small lymph nodes noted on CT scan 2. Anemia with acute blood loss 3. History of hemorrhoids 4. History of noncancerous colon polyps 5. Episcopalian PLAN: - Patient scheduled for EGD and colonoscopy tomorrow with Dr. Monroe - Clear liquid diet today - Bowel prep with GoLytely and lactulose - N.p.o. after midnight - Discontinue Mobic -Agree with iron supplement Physician Ticket Counter note has been reviewed by physician. Signing provider agrees with the documented findings, assessment, and plan of care. Past Medical History Past Medical History: Asthma, Diabetes Mellitus, Fibromyalgia, Hypertension, Osteoarthritis (OA), Sleep Apnea/CPAP/BIPAP Additional Past Medical History / Comment(s): IBS, HX POLYPS, STATES NOT CURRENTLY TAKING ANY MEDS FOR DIABETES BUT HAS IN PAST, HAS HEEL SPUR ON LEFT FOOT, CURRENTLY USING A CRUTCH History of Any Multi-Drug Resistant Organisms: None Reported Past Surgical History: Bowel Resection, Hysterectomy, Joint Replacement, Orthopedic Surgery Additional Past Surgical History / Comment(s): COLECTOMY for polyps, LEFT KNEE REPLACEMENT, RT ROTATOR CUFF Past Anesthesia/Blood Transfusion Reactions: No Reported Reaction Past Psychological History: Anxiety, Depression Smoking Status: Never smoker Past Alcohol Use History: None Reported Additional Past Alcohol Use History / Comment(s): Patient is a lifelong nonsmoker. She denies any medical marijuana, marijuana, street drug or alcohol use. Patient is currently living alone. Past Drug Use History: None Reported - Past Family History Father Family Medical History: Cancer Additional Family Medical History / Comment(s): Father at age 79 from lymphoma. Mother Family Medical History: Cancer Additional Family Medical History / Comment(s): Mother at age 82 from colon cancer. Brother(s) Additional Family Medical History / Comment(s): Patient has 1 brother with no major medical problems. Patient does not have any sisters. She has one son that is healthy. Medications and Allergies Home Medications Medication Instructions Recorded Confirmed Type Albuterol Sulfate [Ventolin HFA] 2 puff INHALATION RT-Q6H PRN 11/04/23 10/16/24 History DULoxetine HCL [Cymbalta] 60 mg PO DAILY 11/04/23 10/16/24 History Meloxicam [Mobic] 7.5 mg PO DAILY PRN 11/04/23 10/16/24 History hydrOXYzine HCL [Atarax] 25 mg PO BID 11/04/23 10/16/24 History traZODone HCL [Desyrel] 100 mg PO HS 11/04/23 10/16/24 History Hydrocortisone Oint 1 applic TOPICAL BID PRN 10/04/24 10/16/24 History [Hydrocortisone 2.5% Oint] Loratadine 10 mg PO DAILY 10/04/24 10/16/24 History Montelukast [Singulair] 10 mg PO DAILY 10/04/24 10/16/24 History Gabapentin [Neurontin] 300 mg PO BID 10/16/24 10/16/24 History Multivitamins, Thera [Multivitamin 1 tab PO DAILY 10/16/24 10/16/24 History (formulary)] Potassium Chloride [Klor-Con 8] 8 meq PO DAILY 10/16/24 10/16/24 History Allergies Allergy/AdvReac Type Severity Reaction Status Date / Time fluticasone furoate Allergy "Respiratory Verified 10/16/24 13:44 [From Breo Ellipta] Issues" nickel [Nickel] Allergy Rash/Hives Verified 10/16/24 13:44 vilanterol Allergy "Respiratory Verified 10/16/24 13:44 [From Breo Ellipta] Issues" Surgical - Exam Vital Signs Temp Pulse Resp BP Pulse Ox 97.6 F 98 20 132/74 100 10/16/24 10:39 10/16/24 10:39 10/16/24 10:39 10/16/24 10:39 10/16/24 10:39 Results - Labs 10/16/24 11:38 10/16/24 11:38
[2024-10-17 16:06] VITALS: BMI 40.7
[2024-10-17 16:45] LABS: Glucose,Whole Blood 110 mg/dL (70-110)
[2024-10-17 20:38] LABS: Glucose,Whole Blood 111 mg/dL (70-110)
--- NOTE | 2024-10-17 22:14 | P.CONS ---
History of Present Illness - Reason for Consult Consult date: 10/17/24 anemia, rectal thickening Requesting physician: Marta Arango - Chief Complaint rectal bleeding - History of Present Illness Mrs. Yao is a 74-year-old female patient of Dr. Gonzalez, initially seen 08/10/2024, referred because of thrombocytosis found on labs in June 2024. Platelets were 627,000, hemoglobin 11.9, MCV 78. CBC in November 2023 all labs were normal. She had had a colonoscopy by Dr. Weldon in [place] 12/2023, multiple polyps were removed and a 2-year follow-up was recommended. She also had multiple large hemorrhoids. Patient reports significant rectal bleeding for a few years. Persistent, occasionally clots. She denied black or tarry stool. She has had about a 14 pound weight loss. She had a CT of the abdomen and pelvis at [place] 09/14/2024 with no revealing underlying cause for patient's thrombocytosis. Was felt to be reactive to iron deficiency. Patient was started on parenteral iron in the office as she could not tolerate oral iron due to stomach complaints and constipation. Patient was due to have banding of her hemorrhoids in the next few days with gastroenterology but, her human factors advisor lead recommended that she have any procedures done in an acute setting as she is a Protestant and does not accept blood products. On admit patient hemoglobin was 8, microcytic, hypochromic, platelets 535,000, mildly elevated white blood cell count at 10.6, mostly neutrophils and immature granulocytes. CT of the abdomen and pelvis reports normal liver, spleen. Bilateral renal cysts are noted. Prominent thickening through the rectum with an enlarged some small lymph nodes noted, 1.3 perirectal lymph node anterior to the sacrum Review of Systems 10 point ROS is neg except as stated in HPI Past Medical History Past Medical History: Asthma, Diabetes Mellitus, Fibromyalgia, Hypertension, Osteoarthritis (OA), Sleep Apnea/CPAP/BIPAP Additional Past Medical History / Comment(s): IBS, HX POLYPS, STATES NOT CUR RENTLY TAKING ANY MEDS FOR DIABETES BUT HAS IN PAST, HAS HEEL SPUR ON LEFT FOOT, CURRENTLY USING A CRUTCH History of Any Multi-Drug Resistant Organisms: None Reported Past Surgical History: Bowel Resection, Hysterectomy, Joint Replacement, Orthopedic Surgery Additional Past Surgical History / Comment(s): COLECTOMY for polyps, LEFT KNEE REPLACEMENT, RT ROTATOR CUFF Past Anesthesia/Blood Transfusion Reactions: No Reported Reaction Past Psychological History: Anxiety, Depression Smoking Status: Never smoker Past Alcohol Use History: None Reported Additional Past Alcohol Use History / Comment(s): Patient is a lifelong nonsmoker. She denies any medical marijuana, marijuana, street drug or alcohol use. Patient is currently living alone. Past Drug Use History: None Reported - Past Family History Father Family Medical History: Cancer Additional Family Medical History / Comment(s): Father at age 79 from lymphoma. Mother Family Medical History: Cancer Additional Family Medical History / Comment(s): Mother at age 82 from colon cancer. Brother(s) Additional Family Medical History / Comment(s): Patient has 1 brother with no major medical problems. Patient does not have any sisters. She has one son that is healthy. Medications and Allergies Home Medications Medication Instructions Recorded Confirmed Type Albuterol Sulfate [Ventolin HFA] 2 puff INHALATION RT-Q6H PRN 11/04/23 10/16/24 History DULoxetine HCL [Cymbalta] 60 mg PO DAILY 11/04/23 10/16/24 History Meloxicam [Mobic] 7.5 mg PO DAILY PRN 11/04/23 10/16/24 History hydrOXYzine HCL [Atarax] 25 mg PO BID 11/04/23 10/16/24 History traZODone HCL [Desyrel] 100 mg PO HS 11/04/23 10/16/24 History Hydrocortisone Oint 1 applic TOPICAL BID PRN 10/04/24 10/16/24 History [Hydrocortisone 2.5% Oint] Loratadine 10 mg PO DAILY 10/04/24 10/16/24 History Montelukast [Singulair] 10 mg PO DAILY 10/04/24 10/16/24 History Gabapentin [Neurontin] 300 mg PO BID 10/16/24 10/16/24 History Multivitamins, Thera [Multivitamin 1 tab PO DAILY 10/16/24 10/16/24 History (formulary)] Potassium Chloride [Klor-Con 8] 8 meq PO DAILY 10/16/24 10/16/24 History Allergies Allergy/AdvReac Type Severity Reaction Status Date / Time fluticasone furoate Allergy "Respiratory Verified 10/16/24 13:44 [From Breo Ellipta] Issues" nickel [Nickel] Allergy Rash/Hives Verified 10/16/24 13:44 vilanterol Allergy "Respiratory Verified 10/16/24 13:44 [From Breo Ellipta] Issues" Physical Exam Vitals: Vital Signs Temp Pulse Pulse Resp BP BP Pulse Ox 10/17/24 08:43 88 10/17/24 08:28 88 10/17/24 02:55 99.2 F 89 18 105/63 96 10/16/24 22:00 18 10/16/24 18:52 64 18 145/55 97 10/16/24 16:00 80 18 145/48 98 10/16/24 14:41 88 18 127/68 96 10/16/24 10:39 97.6 F 98 20 132/74 100 Intake and Output 10/16/24 10/17/24 10/17/24 22:59 06:59 14:59 Intake Total 600 Balance 600 Intake: Oral 600 Other: # Voids 2 Weight 117.934 kg - Constitutional General appearance: cooperative, no acute distress, obese - EENT Eyes: anicteric sclerae, EOMI ENT: hearing grossly normal, normal oropharynx - Respiratory Respiratory: bilateral: CTA - Cardiovascular Rhythm: regular Heart sounds: normal: S1, S2 Abnormal Heart Sounds: no systolic murmur, no diastolic murmur, no rub, no S3 Gallop, no S4 Gallop, no click, no other leg Peripheral Edema: bilateral: None - Gastrointestinal General gastrointestinal: no absent bowel sounds, no decreased bowel sounds, no distended, no hepatomegaly, no hyperactive bowel sounds, normal bowel sounds, no organomegaly, no rigid, no scaphoid, soft, no splenomegaly, tenderness, no umbilical hernia, no ventral hernia - Integumentary Integumentary: normal - Neurologic Neurologic: CNII-XII intact - Musculoskeletal Musculoskeletal: generalized weakness, strength equal bilaterally - Psychiatric Psychiatric: A&O x's 3, appropriate affect, intact judgment & insight Results CBC & Chem 7: 10/16/24 11:38 10/16/24 11:38 Labs: Abnormal Lab Results - Last 24 Hours (Table) 10/16/24 10/16/24 10/16/24 Range/Units 11:38 11:38 12:50 WBC 10.64 H (4.50-10.00) 10*3/uL RBC 3.45 L (4.10-5.20) 10*6/uL Hgb 8.0 L (12.0-15.0) g/dL Hct 25.7 L (37.2-46.3) % MCV 74.5 L (80.0-97.0) fL MCH 23.2 L (27.0-32.0) pg MCHC 31.1 L (32.0-37.0) g/dL Plt Count 535 H (140-440) 10*3/uL MPV 8.0 L (9.5-12.2) fL Immature Gran # 0.05 H (0.00-0.04) 10*3/uL Neutrophils # 7.92 H (1.80-7.70) 10*3/uL Sodium 135 L (137-145) mmol/L Glucose 100 H (74-99) mg/dL Albumin 3.4 L (3.5-5.0) g/dL Lipase 14 L (23-300) U/L Ur Specific [place] 1.037 H (1.001-1.035) Urine Protein Trace H (Negative) Ur Leukocyte Esterase Trace H (Negative) Urine WBC 7 H (0-5) /hpf Urine Mucus Occasional H (None) /hpf CT scan - abdomen: report reviewed CT scan - pelvis: report reviewed Assessment and Plan (1) Abnormal CT scan Current Visit: Yes Status: Acute Priority: Low Code(s): R93.89 - ABNORMAL FINDINGS ON DX IMAGING OF OTH BODY STRUCTURES SNOMED Code(s): 353623713 (2) Anemia Current Visit: Yes Status: Acute Priority: High Code(s): D64.9 - ANEMIA, UNSPECIFIED SNOMED Code(s): 562261830 Plan: Abnormal CT scan -CT of the abdomen and pelvis reports normal liver, spleen. Bilateral renal cysts are noted. Prominent thickening through the rectum with an enlarged some small lymph nodes noted, 1.3 perirectal lymph node anterior to the sacrum -CT AP from [place] 09/14/24 reviewed -Suspect the current CTAP findings are more consistent with acute hemorrhoid bleeding and clots based in recent imaging. CT AP 09/14/2024 that did not mention rectal thickening or LAD. Agree though, with the plan of care for upper and lower endoscopy tomorrow to fully evaluate. Anemia, secondary to bleeding hemorrhoids - Patient had plans for hemorrhoid banding with Dr. Mathis but, she is a Protestant and does not accept blood products. It was recommended by her human factors advisor lead that she have procedures done in an acute setting. - Patient is going for upper and lower endoscopy tomorrow. - Patient does have labs consistent with iron deficiency-from ofc. She received 1 dose of Feraheme in the outpatient setting. Additional parenteral iron is ordered here daily. Patient did struggle with tolerating oral iron due to complaints as well as constipation that further aggravates the bleeding hemorrhoids. Doctor attests: I performed a history and physical examination of this patient, developed impression and plan of care. Discussed with dictator. I agree with dictators note, documented as a scribe.
--- NOTE | 2024-10-18 | PN ---
PROGRESS NOTE A 74-year-old white female. She is taking a prep tomorrow. She is going to get an EGD and colonoscopy tomorrow for acute on chronic anemia, seen by sensitizer as well as Surgery. Thrombocytosis on labs. Had seen Dr. Nails in the past. In 2023, she had a normal colonoscopy, except for 2 polyps, significant for rectal bleeding for 2 years. PHYSICAL EXAMINATION: VITAL SIGNS: Stable. ENDOCRINE: BMI is over 40. CARDIOVASCULAR: S1, S2. LUNGS: Clear. ABDOMEN: Distended. Abdomen shows possibly enlarged perirectal lymph node, anterior to the sacrum. Sodium of 135, potassium 4.6, hemoglobin is 8. 1. Hemorrhoidal bleeding, most likely clots. Lower endoscopy to fully evaluate. 2. Anemia, secondary to bleeding hemorrhoids. Possibly hemorrhoid banding. Upper and lower endoscopy. 3. Iron deficiency anemia. Continue with Venofer. Prognosis is guarded. MMODL / IJN: [id number] /
[2024-10-18 03:51] LABS: HCT 22.3 % (37.2-46.3); HGB 7.6 g/dL (12.0-15.0); MCH 25.4 pg (27.0-32.0); MCHC 34.1 g/dL (32.0-37.0); MCV 74.6 fL (80.0-97.0); Platelet Count 492 10*3/uL (140-440); RBC 2.99 10*6/uL (4.10-5.20); RDW 20.5 % (11.5-14.5); WBC 9.23 10*3/uL (4.50-10.00)
[2024-10-18 04:38] LABS: African American GFR (CKD) >90 (>60 ml/min/1.73 sqM); Anion Gap 5 mmol/L; Blood Urea Nitrogen 2 mg/dL (7-17); Calcium 8.7 mg/dL (8.4-10.2); Carbon Dioxide 27 mmol/L (22-30); Chloride 105 mmol/L (98-107); Glucose 74 mg/dL (74-99); Non-African American GFR(CKD) >90 (>60 ml/min/1.73 sqM); Sodium 137 mmol/L (137-145)
[2024-10-18 06:19] LABS: Glucose,Whole Blood 79 mg/dL (70-110)
[2024-10-18] MEDS: POTASSIUM CHLORIDE ER 20 MEQ TAB.ER PO STA (09:34)
[2024-10-18 11:30] LABS: Glucose,Whole Blood 82 mg/dL (70-110)
--- NOTE | 2024-10-18 11:57 | PN ---
PROGRESS NOTE She wants to get a colonoscopy and EGD today due to abnormal CAT scan shows either a stricture or possible mass in the lower colon area on the left side. Scottie Vazquez also saw her for Hematology, their recommendations for abnormal CT scans, anemia, they thought current CTAP findings were consistent with acute hemorrhagic bleeding and clots based on recent imaging and did not mention rectal thickening or LAD, anemia secondary to hemorrhoids, possible banding, upper and lower endoscopy, iron deficiency, possibly Feraheme in the outpatient setting. Prognosis guarded. Await current treatment. MMODL / IJN: [id number] /
[2024-10-18] MEDS: IV FLUID CONTINUATION 1,000 ML IV ONE (12:27)
--- NOTE | 2024-10-18 12:39 | P.PCN ---
Date of Procedure: 10/18/24 Description of Procedure: PREOPERATIVE DIAGNOSIS: Acute gastrointestinal bleeding Positive stool occult blood Chronic NSAID use Jehovah witness POSTOPERATIVE DIAGNOSIS: History of acute gastrointestinal bleeding OPERATION: Esophagogastroduodenoscopy SURGEON: Kayla Monroe MD ANESTHESIA: MAC. INDICATIONS: The patient is a 74-year-old female who presents with gastrointestinal bleeding. She is on chronic NSAIDs. Benefits and risks of the procedure were described. Informed consent was obtained. DESCRIPTION: The patient was brought into the endoscopy suite and laid in the left lateral decubitus position. An Olympus gastroscope was passed along the posterior oropharynx down to the distal esophagus where the squamocolumnar junction was encountered at 40 cm from the incisors. The stomach was entered and no bile reflux was found. Additional findings are listed below. The first through third portion of the duodenum was examined and unremarkable. Retroflexion of the scope confirmed Hill grade 2 lower esophageal valve. The squamocolumnar junction demonstrated LA grade B erosive esophagitis. The stomach was desufflated. The patient tolerated the procedure well. FINDINGS: Squamocolumnar junction 40 cm from the incisors. Diaphragmatic hiatus at 40 cm. Hill grade 3 lower esophageal valve. LA grade A erosive esophagitis. No active duodenitis. No stigmata of bleeding RECOMMENDATIONS: 1. Upper endoscopy as needed
--- NOTE | 2024-10-18 12:59 | P.PCN ---
Date of Procedure: 10/18/24 Description of Procedure: PREOPERATIVE DIAGNOSIS: Anemia Abnormal CT scan for rectal cancer Gastrointestinal bleeding Islam POSTOPERATIVE DIAGNOSIS: Rectal malignancy with active bleeding Scattered diverticulosis OPERATION: Colonoscopy to the ascending colon Colonoscopy with snare polypectomy SURGEON: Kayla Monroe MD. ANESTHESIA: MAC. INDICATIONS: The patient is a 74-year-old female who presents with anemia GI bleed and abnormal CT scan for rectal malignancy. benefits and risks were described and informed consent was obtained. DESCRIPTION OF PROCEDURE: The patient had undergone lactulose MiraLAX and GoLytely prep the patient had been brought into the operating room and laid in the left lateral decubitus position. After adequate intravenous sedation, the rectum was examined with 2% lidocaine jelly. The rectal tone was within normal limits. No lesions were palpated in the rectal vault. Immediately a palpable firm fixated mass was felt at least 8 cm from the anal verge at the tip of the finger. Active bleeding was identified. An Olympus colonoscope was advanced until the cecum, ileocecal valve and appendiceal orifice were clearly viewed. The prep was excellent. Few scattered diverticulosis was encountered. Easily friable malignant mass incorporating 50% of the lumen from 15 cm from the anal verge to the anal verge with active bleeding, biopsies obtained. Retroflexion of the scope demonstrated grade 1 internal hemorrhoids without active bleeding or inflammation. The colon was desufflated. The patient had tolerated the procedure well. Withdrawal time was over 6 minutes. FINDINGS: Aronchick preparation quality scale 2 (1-5) No external prolapsed hemorrhoids. No arteriovenous malformations. No focal colitis. Scope advanced to the ascending colon without visualization of the cecum Multiple snare polypectomy fixated, fungating rectal mass incorporating 50% of the lumen from 15 Sonos from the anal verge distally with sparing of the anal Derm. RECOMMENDATIONS: Oncology consultation Patient will need additional workup with MRI of the pelvis including likely abdominal perineal resection, colorectal specialist advised Plan - Discharge Summary Discharge Rx Participant: Yes New Discharge Prescriptions: No Action Albuterol Sulfate [Ventolin HFA] 2 puff INHALATION RT-Q6H PRN PRN Reason: Shortness Of Breath Loratadine 10 mg PO DAILY Hydrocortisone Oint [Hydrocortisone 2.5% Oint] 1 applic TOPICAL BID PRN PRN Reason: Skin Irritation Gabapentin [Neurontin] 300 mg PO BID Potassium Chloride [Klor-Con 8] 8 meq PO DAILY hydrOXYzine HCL [Atarax] 25 mg PO BID traZODone HCL [Desyrel] 100 mg PO HS Meloxicam [Mobic] 7.5 mg PO DAILY PRN PRN Reason: spasms/pain DULoxetine HCL [Cymbalta] 60 mg PO DAILY Montelukast [Singulair] 10 mg PO DAILY Multivitamins, Thera [Multivitamin (formulary)] 1 tab PO DAILY Discharge Medication List Albuterol Sulfate [Ventolin HFA] 2 puff INHALATION RT-Q6H PRN 11/04/23 [History] DULoxetine HCL [Cymbalta] 60 mg PO DAILY 11/04/23 [History] Meloxicam [Mobic] 7.5 mg PO DAILY PRN 11/04/23 [History] hydrOXYzine HCL [Atarax] 25 mg PO BID 11/04/23 [History] traZODone HCL [Desyrel] 100 mg PO HS 11/04/23 [History] Hydrocortisone Oint [Hydrocortisone 2.5% Oint] 1 applic TOPICAL BID PRN 10/04/24 [History] Loratadine 10 mg PO DAILY 10/04/24 [History] Montelukast [Singulair] 10 mg PO DAILY 10/04/24 [History] Gabapentin [Neurontin] 300 mg PO BID 10/16/24 [History] Multivitamins, Thera [Multivitamin (formulary)] 1 tab PO DAILY 10/16/24 [History] Potassium Chloride [Klor-Con 8] 8 meq PO DAILY 10/16/24 [History] Follow up Appointment(s)/Referral(s): None,Stated [Primary Care Provider] - 1-2 days Discharge/Stand Alone Forms: Area PCPs
[2024-10-18 16:46] LABS: Glucose,Whole Blood 83 mg/dL (70-110)
--- NOTE | 2024-10-18 19:10 | P.PN ---
Subjective Progress Note Date: 10/18/24 CHIEF COMPLAINT: Rectal bleeding HISTORY OF PRESENT ILLNESS: The patient is a 74-year-old female reports routine colonoscopy screening for the past 10 years due to strong family history of colon cancer in her grandmother, mother. Patient reported that she canceled her outpatient hemorrhoidectomy as she was unsafe with the surgeon to perform her hemorrhoidectomy. She reports longstanding rectal bleeding for many years. She also reports having recent colonoscopy 10 months ago in December 2023 at outside facility where she was not given any pictures or concerns for rectal mass or cancer other than hemorrhoids. Patient completed a colonoscopy with rectal malignancy confirmed with biopsies pending at this time. Patient reports appropriate rectal pain due to local lymphovascular invasion as confirmed on CT scan regarding rectal cancer. ROS: No reports of nausea and vomiting. No fevers or chills. No new chest pain. PHYSICAL EXAM: VITAL SIGNS: Reviewed CONSTITUTIONAL: Well developed and in no acute distress. EYES: Conjuctivae without sclera icterus. Extraocular movements grossly intact. HEAD, EARS, NOSE, THROAT: Moist buccal mucosa. Head is atraumatic, normocephalic. Hears conversational speech. No nasal drainage. RESPIRATORY: Non-labored respirations and equal bilateral excursions. CARDIOVASCULAR: Palpable 2+ radial pulses. ABDOMEN: Nontender. MUSCULOSKELETAL: No gross deformity of the lower extremities noted. No clubbing. No cyanosis. SKIN: Good skin turgor. Well perfused. NEUROLOGIC: Cranial nerves II through XII grossly intact. No focal or lateralizing signs. PSYCH: Appropriate affect. Alert and oriented to person, place and time. CLINICAL LABS: Reviewed. Hemoglobin 7.6, anemia ASSESSMENT: 1. Rectal bleeding due to rectal neoplasm/malignancy 2. Abnormal CT scan for rectal cancer 3. Morbid obesity excess calories, BMI 40.7 4. Jain 5. Family history of colon cancer grandmother, mother 6. Anemia due to chronic blood loss PLAN: 1. Patient contacted with her only child, son on the telephone. I went over in detail endoscopy findings with negative upper endoscopy. Colonoscopy did confirm a rectal malignancy for which biopsies were obtained. 2. Due to the nature of rectal malignancy, do recommend oncology assessment for chemo versus radiation pending pathology reports for adjuvant therapy 3. Additional imaging studies including PET CT scan and MRI of the pelvis/rectum to identify the depth of invasion however with positive lymph nodes found on CT scan risk of stage III cancer was briefly reviewed. 4. Would recommend referral to colorectal specialist for robotic assisted abdominal perineal resection for least risk of massive blood loss 5. Additionally, do recommend erythropoietin stimulating medications such as Aranesp to augment baseline anemia which may take several weeks. Also discussed with patient need for improving blood count prior to surgery as she is a Jain and does not want any blood products. 6. Will advance diet to low fiber diet 7. Recommend augment nutrition to high-protein diet of 80 to 90 g daily to improve nutritional outcome as well as surgical outcome 8. Care plan reviewed with the patient and son over the telephone and all questions were addressed. Dictation was produced using [employer] dictation software. Please excuse any grammatical, word or spelling errors. Objective - Vital Signs Vital signs: Vital Signs Temp 97.9 F 10/18/24 15:30 Pulse 99 10/18/24 17:01 Resp 16 10/18/24 17:01 BP 129/69 10/18/24 15:30 Pulse Ox 94 L 10/18/24 15:30 FiO2 Intake & Output 10/18/24 10/18/24 10/19/24 06:59 18:59 06:59 Intake Total 400 Balance 400 Intake: IV 400 Other: Voiding Method Toilet # Voids 2 2 # Bowel Movements 1 - Labs CBC & Chem 7: 10/18/24 03:00 10/18/24 03:00 Labs: Abnormal Lab Results - Last 24 Hours (Table) 10/17/24 10/18/24 10/18/24 Range/Units 20:37 03:00 03:00 RBC 2.99 L (4.10-5.20) 10*6/uL Hgb 7.6 L (12.0-15.0) g/dL Hct 22.3 L (37.2-46.3) % MCV 74.6 L (80.0-97.0) fL MCH 25.4 L (27.0-32.0) pg RDW 20.5 H (11.5-14.5) % Plt Count 492 H (140-440) 10*3/uL MPV 8.0 L (9.5-12.2) fL Potassium 3.0 L (3.5-5.1) mmol/L BUN 2 L (7-17) mg/dL POC Glucose (mg/dL) 111 H (70-110) mg/dL
[2024-10-18 20:27] LABS: Glucose,Whole Blood 106 mg/dL (70-110)
[2024-10-19 06:12] LABS: Glucose,Whole Blood 107 mg/dL (70-110)
[2024-10-19 08:13] LABS: ALT 7 U/L (8-44); AST 18 U/L (13-35); Albumin 2.9 g/dL (3.8-4.9); Albumin/Globulin Ratio 1.21 Ratio (1.60-3.17); Alkaline Phosphatase 85 U/L (41-126); BUN/Creat Ratio <5.83 Ratio (12.00-20.00); Blood Urea Nitrogen <3.5 mg/dL (9.0-27.0); Calcium 8.2 mg/dL (8.7-10.3); Chloride 107 mmol/L (96-109); Globulin 2.4 g/dL (1.6-3.3); Glucose 125 mg/dL (70-110); Potassium 3.7 mmol/L (3.5-5.5); Sodium 140 mmol/L (135-145); Total Bilirubin 0.4 mg/dL (0.3-1.2); Total Protein 5.3 g/dL (6.2-8.2)
[2024-10-19 08:26] LABS: Basophils # (A) 0.02 X 10*3/uL (0.00-0.10); Basophils % (A) 0.2 %; HCT 24.4 % (37.2-46.3); HGB 7.4 g/dL (12.0-15.0); Lymphocytes # (A) 1.52 X 10*3/uL (0.90-5.00); MCH 23.1 pg (27.0-32.0); MCHC 30.3 g/dL (32.0-37.0); Monocytes # (A) 0.95 X 10*3/uL (0.20-1.00); Monocytes % (A) 9.4 %; NRBC Per 100 WBC 0 X 10*3/uL (0.00-0.01); Neutrophils # (A) 7.37 X 10*3/uL (1.80-7.70); Neutrophils % (A) 72.9 %; Platelet Count 514 X 10*3/uL (140-440); RBC 3.21 X 10*6/uL (4.10-5.20); RDW 21.2 % (11.5-14.5); WBC 10.11 X 10*3/uL (4.50-10.00)
[2024-10-19] MEDS: HYDROmorphone 2 MG/ML 1 ML SYRINGE IVP PRN (10:15)
[2024-10-19 12:13] LABS: Glucose,Whole Blood 153 mg/dL (70-110)
--- NOTE | 2024-10-19 14:00 | P.PN ---
Subjective Progress Note Date: 10/19/24 CHIEF COMPLAINT: Rectal bleeding HISTORY OF PRESENT ILLNESS: This is 74-year-old female presented with rectal bleeding. She is status post EGD and colonoscopy. Colonoscopy results reported rectal malignancy with active bleeding and scattered diverticulosis. EGD reported diaphragmatic hiatus and erosive esophagitis. Patient continues to have some bleeding from the rectum. She does report rectal pain. Afebrile. WBC is 10.11 Hgb 7.4 platelets 514 patient is receiving IV iron. PHYSICAL EXAM: VITAL SIGNS: Reviewed GENERAL: Well-developed in no acute distress. HEENT: No sclera icterus. Extraocular movements grossly intact. Moist buccal mucosa. Head is atraumatic, normocephalic. Hears conversational speech. No nasal drainage. NECK: Supple without lymphadenopathy. CHEST: Non-labored respirations and equal bilateral excursions. CARDIOVASCULAR: Palpable 2+ radial pulses. ABDOMEN: Soft. Nondistended. Nontender. MUSCULOSKELETAL: No clubbing or cyanosis. NEUROLOGIC: No focal or lateralizing signs. Cranial nerves II through XII grossly intact. PSYCH: Appropriate affect. Alert and oriented to person, place and time. SKIN: Well perfused. Good skin turgor. ASSESSMENT: 1. Rectal bleeding due to rectal neoplasm/malignancy 2. Abnormal CT scan for rectal cancer 3. Morbid obesity excess calories, BMI 40.7 4. Jainism 5. Family history of colon cancer grandmother, mother 6. Anemia due to chronic blood loss PLAN: 1. Colonoscopy did confirm rectal malignancy. Biopsy results are pending. 2. Due to the nature of rectal malignancy, do recommend oncology assessment for chemo versus radiation pending pathology reports for adjuvant therapy 3. Additional imaging studies including PET CT scan and MRI of the pelvis/rectum to identify the depth of invasion however with positive lymph nodes found on CT scan risk of stage III cancer was briefly reviewed. 4. Would recommend referral to colorectal specialist for robotic assisted abdominal perineal resection for least risk of massive blood loss 5. Additionally, do recommend erythropoietin stimulating medications such as Aranesp to augment baseline anemia which may take several weeks. Also discussed with patient need for improving blood count prior to surgery as she is a Jainism and does not want any blood products. 6. Continue high-protein and low fiber diet. 7. Recommend augment nutrition to high-protein diet of 80 to 90 g daily to improve nutritional outcome as well as surgical outcome Physician Textile Chemist note has been reviewed by physician. Signing provider agrees with the documented findings, assessment, and plan of care. Objective - Vital Signs Vital signs: Vital Signs Temp 97.7 F 10/19/24 07:20 Pulse 88 10/19/24 12:23 Resp 16 10/19/24 07:20 BP 137/71 10/19/24 07:20 Pulse Ox 95 10/19/24 07:20 FiO2 Intake & Output 10/18/24 10/19/24 10/19/24 18:59 06:59 18:59 Intake Total 400 560 Balance 400 560 Intake: IV 400 Oral 560 Other: Voiding Method Toilet # Voids 2 1 1 # Bowel Movements 1 1 - Labs CBC & Chem 7: 10/19/24 05:57 10/19/24 04:37 Labs: Abnormal Lab Results - Last 24 Hours (Table) 10/19/24 10/19/24 10/19/24 Range/Units 04:37 05:57 12:11 WBC 10.11 H (4.50-10.00) X 10*3/uL RBC 3.21 L (4.10-5.20) X 10*6/uL Hgb 7.4 L (12.0-15.0) g/dL Hct 24.4 L (37.2-46.3) % MCV 76.0 L (80.0-97.0) FL MCH 23.1 L (27.0-32.0) pg MCHC 30.3 L (32.0-37.0) g/dL RDW 21.2 H (11.5-14.5) % Plt Count 514 H (140-440) X 10*3/uL MPV 8.0 L (9.5-12.2) FL Immature Gran # 0.05 H (0.00-0.04) X 10*3/uL BUN <3.5 L (9.0-27.0) mg/dL BUN/Creatinine Ratio <5.83 L (12.00-20.00) Ratio Glucose 125 H (70-110) mg/dL POC Glucose (mg/dL) 153 H (70-110) mg/dL Calcium 8.2 L (8.7-10.3) mg/dL ALT 7 L (8-44) U/L Total Protein 5.3 L (6.2-8.2) g/dL Albumin 2.9 L (3.8-4.9) g/dL Albumin/Globulin Ratio 1.21 L (1.60-3.17) Ratio
[2024-10-19 17:08] LABS: Glucose,Whole Blood 112 mg/dL (70-110)
--- NOTE | 2024-10-19 18:08 | P.PN ---
Subjective Progress Note Date: 10/19/24 Principal diagnosis: Rectal bleeding, endoscopy In f/u today pt is reporting rectal pain, mod/severe, no recent BM, denies any other bleeding. Objective - Vital Signs Vital signs: Vital Signs Temp 97.7 F 10/19/24 07:20 Pulse 87 10/19/24 07:20 Resp 16 10/19/24 07:20 BP 137/71 10/19/24 07:20 Pulse Ox 95 10/19/24 07:20 FiO2 Intake & Output 10/18/24 10/19/24 10/19/24 18:59 06:59 18:59 Intake Total 400 200 Balance 400 200 Intake: IV 400 Oral 200 Other: Voiding Method Toilet # Voids 2 1 1 # Bowel Movements 1 1 - Constitutional General appearance: Present: cooperative, no acute distress, obese - EENT Eyes: Present: anicteric sclerae, EOMI ENT: Present: hearing grossly normal - Respiratory Details: resp unlabored, pt can lay flat without resp difficulties - Cardiovascular Details: skin warm adn dry to touch - Peripheral edema leg Peripheral Edema: bilateral: None - Neurologic Neurologic: Present: CNII-XII intact - Musculoskeletal Musculoskeletal: Present: generalized weakness - Psychiatric Psychiatric: Present: A&O x's 3, appropriate affect, intact judgment & insight - Labs CBC & Chem 7: 10/19/24 05:57 10/19/24 04:37 Labs: Abnormal Lab Results - Last 24 Hours (Table) 10/19/24 10/19/24 Range/Units 04:37 05:57 WBC 10.11 H (4.50-10.00) X 10*3/uL RBC 3.21 L (4.10-5.20) X 10*6/uL Hgb 7.4 L (12.0-15.0) g/dL Hct 24.4 L (37.2-46.3) % MCV 76.0 L (80.0-97.0) FL MCH 23.1 L (27.0-32.0) pg MCHC 30.3 L (32.0-37.0) g/dL RDW 21.2 H (11.5-14.5) % Plt Count 514 H (140-440) X 10*3/uL MPV 8.0 L (9.5-12.2) FL Immature Gran # 0.05 H (0.00-0.04) X 10*3/uL BUN <3.5 L (9.0-27.0) mg/dL BUN/Creatinine Ratio <5.83 L (12.00-20.00) Ratio Glucose 125 H (70-110) mg/dL Calcium 8.2 L (8.7-10.3) mg/dL ALT 7 L (8-44) U/L Total Protein 5.3 L (6.2-8.2) g/dL Albumin 2.9 L (3.8-4.9) g/dL Albumin/Globulin Ratio 1.21 L (1.60-3.17) Ratio Assessment and Plan (1) Abnormal CT scan Current Visit: Yes Status: Acute Priority: Low Code(s): R93.89 - ABNORMAL FINDINGS ON DX IMAGING OF OTH BODY STRUCTURES SNOMED Code(s): 195409867 (2) Anemia Current Visit: Yes Status: Acute Priority: High Code(s): D64.9 - ANEMIA, UNSPECIFIED SNOMED Code(s): 353004805 Plan: Abnormal CT scan -CT of the abdomen and pelvis reports normal liver, spleen. Bilateral renal cysts are noted. Prominent thickening through the rectum with an enlarged some small lymph nodes noted, 1.3 perirectal lymph node anterior to the sacrum -CT AP from [place] 09/14/24 reviewed -Unfortunately, on endoscopy a friable mass was found, concerning for malignancy. Biopsies, path pending. -Additional staging imaging will be ordered outpt-rectal MRIs not done locally, PET outpt. -Molecular testing based on pathology of mass -All of the above was discuss with pt. She verbalized understanding, all questions were answered to her satisfaction. Will cont to f/u. Will get her an appt to see Dr. Gonzalez after imaging. Anemia, secondary to bleeding hemorrhoids - Patient had plans for hemorrhoid banding with Dr. Mathis but, she is a Anabaptism and does not accept blood products. It was recommended by her bank advisor that she have procedures done in an acute setting. -S/P upper and lower endoscopy, friable mass found, path pending. - Patient does have labs consistent with iron deficiency-from ofc. She received 1 dose of Feraheme in the outpatient setting. Additional parenteral iron is ordered here daily. Patient did struggle with tolerating oral iron due to complaints as well as constipation that further aggravates the bleeding hemorrhoids. Doctor attests: I performed a history and physical examination of this patient, developed impression and plan of care. Discussed with dictator. I agree with dictators note, documented as a scribe.
[2024-10-19 20:02] LABS: Glucose,Whole Blood 148 mg/dL (70-110)
--- NOTE | 2024-10-20 05:01 | P.PN ---
Subjective Progress Note Date: 10/19/[address] Nish Garcia This is a pleasant 74-year-old female who follows with Dr. Gonzalez in the outpatient setting with past medical history of asthma, fibromyalgia, IBS, diabetes mellitus, hypertension and is noted to have bloody stools and was scheduled by colorectal surgeon to have hemorrhoidectomy although hemoglobin was noted to be low and is a Mosque refusing blood products. Patient being followed by general surgery here status post endoscopic colonoscopy confirming rectal malignancies. Multiple biopsies obtained and pending at this time and oncology is following. Patient receiving IV iron and hemoglobin is at 7.4 today. Patient to receive Aranesp and will need improvements in hemoglobin prior to surgical intervention. Patient will also need outpatient testing i ncluding PET scans and further rectal imaging. Patient reports has not had a bowel movement but did have some discharge that with bloody from the rectum. Monitor CBC closely and will follow-up on repeat labs. Encouraged increase activity as tolerated. Review of systems: Constitutional: No reports of fatigue, fever, or chills Cardiovascular: No reports of chest pain or palpitations Respiratory: No reports of shortness of breath or cough GI: reports of occasional nausea, no reports of vomiting, no diarrhea : No reports of dysuria or retention Neurovascular: reports of generalized weakness All medications have been reviewed PHYSICAL EXAMINATION: GENERAL: The patient is alert and oriented x4, Well developed, well nourished. Obese, elderly appearing HEENT: Pupils are round and equally reacting to light. EOMI. no scleral icterus. No conjunctival pallor. Normocephalic, atraumatic. No pharyngeal erythema. No thyromegaly. CARDIOVASCULAR: S1 and S2 muffled PULMONARY: diminished breath sounds bilaterally with no wheezing or rhonchi noted. ABDOMEN: soft. Nontender on exam. obese. non-distended, normoactive bowel sounds. No palpable organomegaly. MUSCULOSKELETAL: No joint swelling or deformity. EXTREMITIES: No cyanosis, clubbing, or pedal edema. NEUROLOGICAL: Gross neurological examination did not reveal any focal deficits. SKIN: No rashes. Assessment: Rectal bleeding, status post colonoscopy with concerns of rectal neoplasm versus malignancy, biopsies obtained and pending Abnormal CT with concerns of rectal carcinoma, follows with Dr. Gonzalez outpatient Jehovah witness and refusing blood products Morbid obesity with a BMI of 40.7 History of IBS History of asthma, not in exacerbation History of hemorrhoids was scheduled for hemorrhoidectomy by colorectal surgeon although was canceled due to anemia Chronic anemia history of diabetes mellitus, type II History of fibromyalgia Hypertension history GI prophylaxis DVT prophylaxis Full code Plan: Recommend to continue with current medications and management with general surgery and oncology following Patient is status post colonoscopy with multiple biopsies obtained and pending revealing malignancy awaiting official biopsy report History of anemia and Mosque refusing blood products, follows with Dr. Gonzalez outpatient. Hemoglobin is 7.4 today and will monitor and repeat labs. Continue Aranesp and patient is receiving IV iron with hematology/oncology following Patient will need outpatient follow-up with colorectal specialist in the outpatient setting Encouraged to increase activity as tolerated Slowly advance diet per general surgery Will discuss discharge planning possibly in the next 24 to 48 hours The impression and plan of care has been dictated by Melia Mata, nurse practitioner as directed. Dr. Mildred MD I have performed a history and examination and MDM of this patient, discussed the same with the dictator, and agree with the dictator's assessment and plan as written ,documented as a scribe. Based on total visit time, I have performed more than 50% of the visit. Any additional findings or plans will be noted. Objective - Vital Signs Vital signs: Vital Signs Temp 97.7 F 10/19/24 07:20 Pulse 87 10/19/24 07:20 Resp 16 10/19/24 07:20 BP 137/71 10/19/24 07:20 Pulse Ox 95 10/19/24 07:20 FiO2 Intake & Output 10/18/24 10/19/24 10/19/24 18:59 06:59 18:59 Intake Total 400 200 Balance 400 200 Intake: IV 400 Oral 200 Other: Voiding Method Toilet # Voids 2 1 1 # Bowel Movements 1 1 - Labs CBC & Chem 7: 10/19/24 05:57 10/19/24 04:37 Labs: Abnormal Lab Results - Last 24 Hours (Table) 10/19/24 10/19/24 Range/Units 04:37 05:57 WBC 10.11 H (4.50-10.00) X 10*3/uL RBC 3.21 L (4.10-5.20) X 10*6/uL Hgb 7.4 L (12.0-15.0) g/dL Hct 24.4 L (37.2-46.3) % MCV 76.0 L (80.0-97.0) FL MCH 23.1 L (27.0-32.0) pg MCHC 30.3 L (32.0-37.0) g/dL RDW 21.2 H (11.5-14.5) % Plt Count 514 H (140-440) X 10*3/uL MPV 8.0 L (9.5-12.2) FL Immature Gran # 0.05 H (0.00-0.04) X 10*3/uL BUN <3.5 L (9.0-27.0) mg/dL BUN/Creatinine Ratio <5.83 L (12.00-20.00) Ratio Glucose 125 H (70-110) mg/dL Calcium 8.2 L (8.7-10.3) mg/dL ALT 7 L (8-44) U/L Total Protein 5.3 L (6.2-8.2) g/dL Albumin 2.9 L (3.8-4.9) g/dL Albumin/Globulin Ratio 1.21 L (1.60-3.17) Ratio
[2024-10-20 06:09] LABS: Glucose,Whole Blood 122 mg/dL (70-110)
[2024-10-20 08:15] LABS: Basophils # (A) 0.02 X 10*3/uL (0.00-0.10); Basophils % (A) 0.2 %; Eosinophils # (A) 0.21 X 10*3/uL (0.04-0.35); Eosinophils % (A) 2.1 %; HCT 23.9 % (37.2-46.3); HGB 7.1 g/dL (12.0-15.0); Lymphocytes # (A) 1.77 X 10*3/uL (0.90-5.00); Lymphocytes % (A) 17.7 %; MCH 23.1 pg (27.0-32.0); MCHC 29.7 g/dL (32.0-37.0); MCV 77.6 FL (80.0-97.0); Monocytes # (A) 0.98 X 10*3/uL (0.20-1.00); Monocytes % (A) 9.8 %; NRBC Per 100 WBC 0 X 10*3/uL (0.00-0.01); Neutrophils # (A) 6.98 X 10*3/uL (1.80-7.70); Neutrophils % (A) 69.9 %; Platelet Count 493 X 10*3/uL (140-440); RBC 3.08 X 10*6/uL (4.10-5.20); RDW 21.3 % (11.5-14.5); WBC 9.99 X 10*3/uL (4.50-10.00)
[2024-10-20 08:32] LABS: Blood Urea Nitrogen 4.7 mg/dL (9.0-27.0); Calcium 8.3 mg/dL (8.7-10.3); Carbon Dioxide 24.9 mmol/L (21.6-31.8); Chloride 104 mmol/L (96-109); Glucose 122 mg/dL (70-110); Potassium 3.1 mmol/L (3.5-5.5); Sodium 139 mmol/L (135-145)
[2024-10-20] MEDS ORDERED: Potassium Replacement Protocol 1 EACH MISC MISCELLANE PRN (09:58)
[2024-10-20] MEDS: POTASSIUM CHLORIDE ER 20 MEQ TAB.ER PO SCH ×2 (11:03→17:51)
[2024-10-20 11:28] LABS: Glucose,Whole Blood 94 mg/dL (70-110)
[2024-10-20] MEDS: ALBUTEROL NEBULIZED 2.5 MG/3 ML INHALATION PRN (11:58)
--- NOTE | 2024-10-20 14:04 | P.PN ---
Subjective Progress Note Date: 10/20/24 CHIEF COMPLAINT: Rectal bleeding HISTORY OF PRESENT ILLNESS: The patient is a 74-year-old female who presents with rectal bleeding and anemia. Patient had a lower endoscopy demonstrating rectal mass consistent with malignancy. She reports minimal bleeding. She is tolerating high-protein diet. She is also receiving iron infusions. ROS: No reports of nausea and vomiting. No fevers or chills. No new chest pain. PHYSICAL EXAM: VITAL SIGNS: Reviewed CONSTITUTIONAL: Well developed and in no acute distress. EYES: Conjuctivae without sclera icterus. Extraocular movements grossly intact. HEAD, EARS, NOSE, THROAT: Moist buccal mucosa. Head is atraumatic, normocephalic. Hears conversational speech. No nasal drainage. RESPIRATORY: Non-labored respirations and equal bilateral excursions. CARDIOVASCULAR: Palpable 2+ radial pulses. ABDOMEN: Nontender. MUSCULOSKELETAL: No gross deformity of the lower extremities noted. No clubbing. No cyanosis. SKIN: Good skin turgor. Well perfused. NEUROLOGIC: Cranial nerves II through XII grossly intact. No focal or lateralizing signs. PSYCH: Appropriate affect. Alert and oriented to person, place and time. CLINICAL LABS: Reviewed. Hemoglobin 7.6 down to 7.1. PATHOLOGY: High-grade dysplasia for rectal adenocarcinoma ASSESSMENT: 1. Rectal bleeding due to rectal neoplasm/malignancy 2. Abnormal CT scan for rectal cancer 3. Morbid obesity excess calories, BMI 40.7 4. Synagogue 5. Family history of colon cancer grandmother, mother 6. Anemia due to chronic blood loss PLAN: 1. Recommend high-protein shakes 30 g per serving for recovery. Protein intake 80 g daily 2. Patient has been seen by oncology team and understands management for rectal cancer includes imaging including outpatient management 3. As she is a Jehovah witness, may benefit from medications to treat her anemia. 4. Stable for discharge once cleared per medicine and oncology Dictation was produced using [employer] dictation software. Please excuse any grammatical, word or spelling errors. Objective - Vital Signs Vital signs: Vital Signs Temp 99.1 F 10/20/24 06:50 Pulse 88 10/20/24 12:10 Resp 16 10/20/24 12:10 BP 129/61 10/20/24 06:50 Pulse Ox 96 04/18/25 06:50 FiO2 Intake & Output 10/19/24 10/20/24 10/20/24 18:59 06:59 18:59 Intake Total 560 Balance 560 Intake: Oral 560 Other: Voiding Method Toilet Toilet # Voids 2 2 - Labs CBC & Chem 7: 10/20/24 03:59 10/20/24 03:59 Labs: Abnormal Lab Results - Last 24 Hours (Table) 10/19/24 10/19/24 10/20/24 Range/Units 17:03 20:00 03:59 RBC 3.08 L (4.10-5.20) X 10*6/uL Hgb 7.1 L (12.0-15.0) g/dL Hct 23.9 L (37.2-46.3) % MCV 77.6 L (80.0-97.0) FL MCH 23.1 L (27.0-32.0) pg MCHC 29.7 L (32.0-37.0) g/dL RDW 21.3 H (11.5-14.5) % Plt Count 493 H (140-440) X 10*3/uL MPV 8.0 L (9.5-12.2) FL Potassium (3.5-5.5) mmol/L BUN (9.0-27.0) mg/dL Creatinine (0.6-1.5) mg/dL BUN/Creatinine Ratio (12.00-20.00) Ratio Glucose (70-110) mg/dL POC Glucose (mg/dL) 112 H 148 H (70-110) mg/dL Calcium (8.7-10.3) mg/dL 10/20/24 10/20/24 Range/Units 03:59 06:07 RBC (4.10-5.20) X 10*6/uL Hgb (12.0-15.0) g/dL Hct (37.2-46.3) % MCV (80.0-97.0) FL MCH (27.0-32.0) pg MCHC (32.0-37.0) g/dL RDW (11.5-14.5) % Plt Count (140-440) X 10*3/uL MPV (9.5-12.2) FL Potassium 3.1 L (3.5-5.5) mmol/L BUN 4.7 L (9.0-27.0) mg/dL Creatinine 0.5 L (0.6-1.5) mg/dL BUN/Creatinine Ratio 9.40 L (12.00-20.00) Ratio Glucose 122 H (70-110) mg/dL POC Glucose (mg/dL) 122 H (70-110) mg/dL Calcium 8.3 L (8.7-10.3) mg/dL
[2024-10-20 16:16] LABS: Glucose,Whole Blood 123 mg/dL (70-110)
[2024-10-20 16:39] LABS: ALT 9 U/L (4-34); AST 15 U/L (14-36); African American GFR (CKD) >90 (>60 ml/min/1.73 sqM); Albumin 2.6 g/dL (3.5-5.0); Alkaline Phosphatase 85 U/L (38-126); Anion Gap 5 mmol/L; Blood Urea Nitrogen 5 mg/dL (7-17); Calcium 8.6 mg/dL (8.4-10.2); Carbon Dioxide 27 mmol/L (22-30); Chloride 104 mmol/L (98-107); Globulin 2.6 g/dL; Glucose 102 mg/dL (74-99); Non-African American GFR(CKD) >90 (>60 ml/min/1.73 sqM); Potassium 3.1 mmol/L (3.5-5.1); Sodium 136 mmol/L (137-145); Total Bilirubin 0.6 mg/dL (0.2-1.3); Total Protein 5.2 g/dL (6.3-8.2)
--- NOTE | 2024-10-20 18:23 | P.PN ---
Subjective Progress Note Date: 10/20/24 No acute events. Reporting persisting rectal pain. Pain meds are in place and have been helping manage pain. Hgb 7.1 today. Continues IV iron Objective - Vital Signs Vital signs: Vital Signs Temp 99.1 F 10/20/24 06:50 Pulse 88 10/20/24 12:10 Resp 16 10/20/24 12:10 BP 129/61 10/20/24 06:50 Pulse Ox 96 10/20/24 06:50 FiO2 Intake & Output 10/19/24 10/20/24 10/20/24 18:59 06:59 18:59 Intake Total 560 Balance 560 Intake: Oral 560 Other: Voiding Method Toilet Toilet # Voids 2 2 - Constitutional General appearance: Present: no acute distress - EENT Eyes: Present: anicteric sclerae, EOMI ENT: Present: hearing grossly normal - Respiratory Details: breathing is even and unlabored - Cardiovascular Details: skin warm and dry - Integumentary Integumentary: Absent: cyanotic, jaundiced - Psychiatric Psychiatric: Present: A&O x's 3 - Labs CBC & Chem 7: 10/20/24 03:59 10/20/24 16:02 Labs: Abnormal Lab Results - Last 24 Hours (Table) 10/19/24 10/19/24 10/20/24 Range/Units 17:03 20:00 03:59 RBC 3.08 L (4.10-5.20) X 10*6/uL Hgb 7.1 L (12.0-15.0) g/dL Hct 23.9 L (37.2-46.3) % MCV 77.6 L (80.0-97.0) FL MCH 23.1 L (27.0-32.0) pg MCHC 29.7 L (32.0-37.0) g/dL RDW 21.3 H (11.5-14.5) % Plt Count 493 H (140-440) X 10*3/uL MPV 8.0 L (9.5-12.2) FL Potassium (3.5-5.5) mmol/L BUN (9.0-27.0) mg/dL Creatinine (0.6-1.5) mg/dL BUN/Creatinine Ratio (12.00-20.00) Ratio Glucose (70-110) mg/dL POC Glucose (mg/dL) 112 H 148 H (70-110) mg/dL Calcium (8.7-10.3) mg/dL 10/20/24 10/20/24 Range/Units 03:59 06:07 RBC (4.10-5.20) X 10*6/uL Hgb (12.0-15.0) g/dL Hct (37.2-46.3) % MCV (80.0-97.0) FL MCH (27.0-32.0) pg MCHC (32.0-37.0) g/dL RDW (11.5-14.5) % Plt Count (140-440) X 10*3/uL MPV (9.5-12.2) FL Potassium 3.1 L (3.5-5.5) mmol/L BUN 4.7 L (9.0-27.0) mg/dL Creatinine 0.5 L (0.6-1.5) mg/dL BUN/Creatinine Ratio 9.40 L (12.00-20.00) Ratio Glucose 122 H (70-110) mg/dL POC Glucose (mg/dL) 122 H (70-110) mg/dL Calcium 8.3 L (8.7-10.3) mg/dL Assessment and Plan (1) Abnormal CT scan Current Visit: Yes Status: Acute Priority: High Code(s): R93.89 - ABNORMAL FINDINGS ON DX IMAGING OF OTH BODY STRUCTURES SNOMED Code(s): 477301975 (2) Anemia Current Visit: Yes Status: Acute Priority: High Code(s): D64.9 - ANEMIA, UNSPECIFIED SNOMED Code(s): 431652918 (3) Rectal cancer Current Visit: Yes Status: Acute Priority: High Code(s): C20 - MALIGNANT NEOPLASM OF RECTUM SNOMED Code(s): 842415123 Plan: Abnormal CT scan, rectal carcinoma -CT of the abdomen and pelvis reports normal liver, spleen. Bilateral renal cysts are noted. Prominent thickening through the rectum with an enlarged some small lymph nodes noted, 1.3 perirectal lymph node anterior to the sacrum -CT AP from [facility] 09/14/24 reviewed -Unfortunately, on endoscopy a friable mass was found, concerning for malignancy. Biopsy showing fragments of villous adenoma with high grade dysplasia and features suggestive of superficial invasion. Discussed results with patient, findings appear consistent with rectal carcinoma. -Additional staging imaging will be ordered outpt-Rectal MRI and PET CT outpt. -Due to superficial/limited specimen, will likely need to obtain repeat biopsy so further testing with molecular studies can be obtained on pathology -Clinic f/u with Dr. Gonzalez upon discharge All of the above was discuss with pt. She verbalized understanding, all questions were answered to her satisfaction. Anemia, secondary to bleeding hemorrhoids/rectal mass - Patient had plans for hemorrhoid banding with Dr. Mathis but, she is a [employer]regation and does not accept blood products. It was recommended by her collection advisor that she have procedures done in an acute setting. -S/P upper and lower endoscopy, friable mass found, path pending. -Patient does have labs consistent with iron deficiency-from ofc. She received 1 dose of Feraheme in the outpatient setting. Additional parenteral iron is ordered here daily. Patient did struggle with tolerating oral iron due to complaints as well as constipation that further aggravates the bleeding hemorrhoids -Continue to monitor CBC Doctor attests: I performed a history and physical examination of this patient, developed impression and plan of care. Discussed with dictator. I agree with dictators note, documented as a scribe.
[2024-10-20 20:36] LABS: Glucose,Whole Blood 128 mg/dL (70-110)
[2024-10-21] MEDS: POTASSIUM CHLORIDE ER 20 MEQ TAB.ER PO SCH (01:15)
[2024-10-21 06:25] LABS: Glucose,Whole Blood 178 mg/dL (70-110)
--- NOTE | 2024-10-21 07:32 | P.PN ---
Subjective Progress Note Date: 10/20/[address] Nish Garcia This is a pleasant 74-year-old female who follows with Dr. Gonzalez in the outpatient setting with past medical history of asthma, fibromyalgia, IBS, diabetes mellitus, hypertension and is noted to have bloody stools and was scheduled by colorectal surgeon to have hemorrhoidectomy although hemoglobin was noted to be low and is a Sikhism refusing blood products. Patient being followed by general surgery here status post endoscopic colonoscopy confirming rectal malignancies. Multiple biopsies obtained and pending at this time and oncology is following. Patient receiving IV iron and hemoglobin is at 7.4 today. Patient to receive Aranesp and will need improvements in hemoglobin prior to surgical intervention. Patient will also need outpatient testing i ncluding PET scans and further rectal imaging. Patient reports has not had a bowel movement but did have some discharge that with bloody from the rectum. Monitor CBC closely and will follow-up on repeat labs. Encouraged increase activity as tolerated. 10/20/2024 Patient is seen in follow-up today continues to report significant lower left quadrant abdominal and rectal pain being followed by general surgery as well as oncology. Hemoglobin is 7.1 today with no active bleeding other than patient noticing some mild bleeding in the stool. Appears to be residual from colonoscopy. Patient is receiving IV iron with hematology/oncology following and planning on outpatient follow-up. Patient will need outpatient rectal MRI as well as PET scan which will be arranged per Dr. Gonzalez. Continue to monitor for improvements in pain control with possible discharge planning in the next 24 hours. Review of systems: Constitutional: No reports of fatigue, fever, or chills Cardiovascular: No reports of chest pain or palpitations Respiratory: No reports of shortness of breath or cough GI: reports of occasional nausea, no reports of vomiting, no diarrhea : No reports of dysuria or retention Neurovascular: reports of generalized weakness All medications have been reviewed PHYSICAL EXAMINATION: GENERAL: The patient is alert and oriented x4, Well developed, well nourished. Obese, elderly appearing HEENT: Pupils are round and equally reacting to light. EOMI. no scleral icterus. No conjunctival pallor. Normocephalic, atraumatic. No pharyngeal erythema. No thyromegaly. CARDIOVASCULAR: S1 and S2 muffled PULMONARY: diminished breath sounds bilaterally with no wheezing or rhonchi noted. ABDOMEN: soft. Nontender on exam. obese. non-distended, normoactive bowel sounds. No palpable organomegaly. MUSCULOSKELETAL: No joint swelling or deformity. EXTREMITIES: No cyanosis, clubbing, or pedal edema. NEUROLOGICAL: Gross neurological examination did not reveal any focal deficits. SKIN: No rashes. Assessment: Rectal bleeding, status post colonoscopy with concerns of rectal malignancy, biopsies obtained and pending Abnormal CT with concerns of rectal carcinoma, follows with Dr. Gonzalez outpatient Jehovah witness and refusing blood products Morbid obesity with a BMI of 40.7 History of IBS History of asthma, not in exacerbation History of hemorrhoids was scheduled for hemorrhoidectomy by colorectal surgeon although was canceled due to anemia Chronic anemia history of diabetes mellitus, type II History of fibromyalgia Hypertension history GI prophylaxis DVT prophylaxis Full code Plan: Recommend to continue with current medications and management with general surgery and oncology following Patient is status post colonoscopy with multiple biopsies obtained and pending revealing malignancy awaiting official biopsy report. Patient will need outpatient PET scan and rectal MRI History of anemia and Sikhism refusing blood products, follows with Dr. Gonzalez outpatient. Hemoglobin is 7.1 today and will monitor and repeat labs. Continue Aranesp and patient is receiving IV iron with hematology/oncology following Encouraged to increase activity as tolerated Slowly advance diet per general surgery Will discuss discharge planning possibly in the next 24 hours. Patient has been cleared by general surgery. Will attempt to control pain and discussed with o ncology regarding outpatient follow-ups. The impression and plan of care has been dictated by Melia Mata, nurse practitioner as directed. Dr. Mildred MD I have performed a history and examination and MDM of this patient, discussed the same with the dictator, and agree with the dictator's assessment and plan as written ,documented as a scribe. Based on total visit time, I have performed more than 50% of the visit. Any additional findings or plans will be noted. Objective - Vital Signs Vital signs: Vital Signs Temp 99.1 F 10/20/24 06:50 Pulse 90 10/20/24 06:50 Resp 17 10/20/24 06:50 BP 129/61 10/20/24 06:50 Pulse Ox 96 10/20/24 06:50 FiO2 Intake & Output 10/19/24 10/20/24 10/20/24 18:59 06:59 18:59 Intake Total 560 Balance 560 Intake: Oral 560 Other: Voiding Method Toilet # Voids 2 2 - Labs CBC & Chem 7: 10/20/24 03:59 10/21/24 04:25 Labs: Abnormal Lab Results - Last 24 Hours (Table) 10/19/24 10/19/24 10/19/24 Range/Units 12:11 17:03 20:00 RBC (4.10-5.20) X 10*6/uL Hgb (12.0-15.0) g/dL Hct (37.2-46.3) % MCV (80.0-97.0) FL MCH (27.0-32.0) pg MCHC (32.0-37.0) g/dL RDW (11.5-14.5) % Plt Count (140-440) X 10*3/uL MPV (9.5-12.2) FL Potassium (3.5-5.5) mmol/L BUN (9.0-27.0) mg/dL Creatinine (0.6-1.5) mg/dL BUN/Creatinine Ratio (12.00-20.00) Ratio Glucose (70-110) mg/dL POC Glucose (mg/dL) 153 H 112 H 148 H (70-110) mg/dL Calcium (8.7-10.3) mg/dL 10/20/24 10/20/24 10/20/24 Range/Units 03:59 03:59 06:07 RBC 3.08 L (4.10-5.20) X 10*6/uL Hgb 7.1 L (12.0-15.0) g/dL Hct 23.9 L (37.2-46.3) % MCV 77.6 L (80.0-97.0) FL MCH 23.1 L (27.0-32.0) pg MCHC 29.7 L (32.0-37.0) g/dL RDW 21.3 H (11.5-14.5) % Plt Count 493 H (140-440) X 10*3/uL MPV 8.0 L (9.5-12.2) FL Potassium 3.1 L (3.5-5.5) mmol/L BUN 4.7 L (9.0-27.0) mg/dL Creatinine 0.5 L (0.6-1.5) mg/dL BUN/Creatinine Ratio 9.40 L (12.00-20.00) Ratio Glucose 122 H (70-110) mg/dL POC Glucose (mg/dL) 122 H (70-110) mg/dL Calcium 8.3 L (8.7-10.3) mg/dL
[2024-10-21 10:22] LABS: HCT 25.4 % (37.2-46.3); HGB 7.5 g/dL (12.0-15.0); MCH 23.4 pg (27.0-32.0); MCHC 29.5 g/dL (32.0-37.0); MCV 79.4 FL (80.0-97.0); Mean Platelet Volume 8.3 FL (9.5-12.2); NRBC Per 100 WBC 0 X 10*3/uL (0.00-0.01); Platelet Count 533 X 10*3/uL (140-440); RDW 22.1 % (11.5-14.5); WBC 9.97 X 10*3/uL (4.50-10.00)
--- NOTE | 2024-10-21 11:02 | P.PN ---
Subjective Progress Note Date: 10/21/24 CHIEF COMPLAINT: Rectal bleeding HISTORY OF PRESENT ILLNESS: The patient is a 74-year-old female who presents with rectal bleeding and anemia. Patient reports that she has been having bowel movements since her last colonoscopy few days ago. Her hemoglobin has improved from 7.1-7.5. Additionally, she is getting another round of IV iron. Patient was seen by oncologist regarding plan yesterday. ROS: No reports of nausea and vomiting. No fevers or chills. No new chest pain. PHYSICAL EXAM: VITAL SIGNS: Reviewed CONSTITUTIONAL: Well developed and in no acute distress. EYES: Conjuctivae without sclera icterus. Extraocular movements grossly intact. HEAD, EARS, NOSE, THROAT: Moist buccal mucosa. Head is atraumatic, normocephalic. Hears conversational speech. No nasal drainage. RESPIRATORY: Non-labored respirations and equal bilateral excursions. CARDIOVASCULAR: Palpable 2+ radial pulses. ABDOMEN: Nontender. MUSCULOSKELETAL: No gross deformity of the lower extremities noted. No clubbing. No cyanosis. SKIN: Good skin turgor. Well perfused. NEUROLOGIC: Cranial nerves II through XII grossly intact. No focal or lateralizing signs. PSYCH: Appropriate affect. Alert and oriented to person, place and time. CLINICAL LABS: Reviewed. Hemoglobin 7.1-7.5, increased PATHOLOGY: High-grade dysplasia for rectal adenocarcinoma ASSESSMENT: 1. Rectal bleeding due to rectal neoplasm/malignancy 2. Abnormal CT scan for rectal cancer 3. Morbid obesity excess calories, BMI 40.7 4. Anabaptist 5. Family history of colon cancer grandmother, mother 6. Anemia due to chronic blood loss PLAN: 1. I was contacted by Dr. Nails yesterday afternoon regarding inadequate tissue sample on her colonoscopy. Due to the extreme friability of the tissue, colonoscopy demonstrated inadequate tissue sample. Per request of oncologist, more sensitive samples are requested. 2. I discussed with the patient the findings from her pathology including request for additional tissue sampling. Best tissue sampling to be performed in the operating room for transanal excisional biopsy. Additionally, cauterizing of tissue and control of bleeding can be best performed. As patient is still hospitalized, we will schedule for procedure while inpatient. 3. In the interim, improvement of anemia described and managed per oncology team 4. Also, patient will need rectal enema for transanal excision Dictation was produced using [employer] dictation software. Please excuse any grammatical, word or spelling errors. Objective - Vital Signs Vital signs: Vital Signs Temp 99.9 F H 10/21/24 07:23 Pulse 99 10/21/24 07:23 Resp 18 10/21/24 07:23 BP 138/73 10/21/24 07:23 Pulse Ox 98 10/21/24 07:23 FiO2 Intake & Output 10/20/24 10/21/24 10/21/24 18:59 06:59 18:59 Output Total 3 Balance -3 Weight 117.934 kg Output: Urine 3 Other: Voiding Method Toilet Toilet # Voids 2 1 - Labs CBC & Chem 7: 10/21/24 04:25 10/21/24 04:25 Labs: Abnormal Lab Results - Last 24 Hours (Table) 10/20/24 10/20/24 10/20/24 Range/Units 16:02 16:15 20:01 RBC (4.10-5.20) X 10*6/uL Hgb (12.0-15.0) g/dL Hct (37.2-46.3) % MCV (80.0-97.0) FL MCH (27.0-32.0) pg MCHC (32.0-37.0) g/dL RDW (11.5-14.5) % Plt Count (140-440) X 10*3/uL MPV (9.5-12.2) FL Sodium 136 L (137-145) mmol/L Potassium 3.1 L 3.1 L (3.5-5.1) mmol/L BUN 5 L (7-17) mg/dL Glucose 102 H (74-99) mg/dL POC Glucose (mg/dL) 123 H (70-110) mg/dL Total Protein 5.2 L (6.3-8.2) g/dL Albumin 2.6 L (3.5-5.0) g/dL 10/20/24 10/20/24 10/21/24 Range/Units 20:35 23:57 04:25 RBC 3.20 L (4.10-5.20) X 10*6/uL Hgb 7.5 L (12.0-15.0) g/dL Hct 25.4 L (37.2-46.3) % MCV 79.4 L (80.0-97.0) FL MCH 23.4 L (27.0-32.0) pg MCHC 29.5 L (32.0-37.0) g/dL RDW 22.1 H (11.5-14.5) % Plt Count 533 H (140-440) X 10*3/uL MPV 8.3 L (9.5-12.2) FL Sodium (137-145) mmol/L Potassium 3.4 L (3.5-5.1) mmol/L BUN (7-17) mg/dL Glucose (74-99) mg/dL POC Glucose (mg/dL) 128 H (70-110) mg/dL Total Protein (6.3-8.2) g/dL Albumin (3.5-5.0) g/dL 10/21/24 Range/Units 06:23 RBC (4.10-5.20) X 10*6/uL Hgb (12.0-15.0) g/dL Hct (37.2-46.3) % MCV (80.0-97.0) FL MCH (27.0-32.0) pg MCHC (32.0-37.0) g/dL RDW (11.5-14.5) % Plt Count (140-440) X 10*3/uL MPV (9.5-12.2) FL Sodium (137-145) mmol/L Potassium (3.5-5.1) mmol/L BUN (7-17) mg/dL Glucose (74-99) mg/dL POC Glucose (mg/dL) 178 H (70-110) mg/dL Total Protein (6.3-8.2) g/dL Albumin (3.5-5.0) g/dL
[2024-10-21 11:08] LABS: Basophils # (A) 0.02 X 10*3/uL (0.00-0.10); Basophils % (A) 0.2 %; Eosinophils # (A) 0.24 X 10*3/uL (0.04-0.35); Eosinophils % (A) 2.4 %; Lymphocytes # (A) 1.44 X 10*3/uL (0.90-5.00); Lymphocytes % (A) 14.4 %; Monocytes # (A) 0.91 X 10*3/uL (0.20-1.00); Monocytes % (A) 9.1 %; Neutrophils # (A) 7.33 X 10*3/uL (1.80-7.70); Neutrophils % (A) 73.6 %
[2024-10-21 12:14] LABS: Glucose,Whole Blood 100 mg/dL (70-110)
[2024-10-21] MEDS: traMADol 50 MG TAB PO SCH (12:58)
[2024-10-21 16:55] LABS: Glucose,Whole Blood 194 mg/dL (70-110)
[2024-10-21] MEDS: oxyCODONE-APAP 5-325MG 1 EACH TAB PO PRN (19:42)
--- NOTE | 2024-10-21 20:57 | P.PN ---
Subjective This is a pleasant 74-year-old female who follows with Dr. Gonzalez in the outpatient setting with past medical history of asthma, fibromyalgia, IBS, d iabetes mellitus, hypertension and is noted to have bloody stools and was scheduled by colorectal surgeon to have hemorrhoidectomy although hemoglobin was noted to be low and is a Gnosticist refusing blood products. Patient being followed by general surgery here status post endoscopic colonoscopy confirming rectal malignancies. Multiple biopsies obtained and pending at this time and oncology is following. Patient receiving IV iron and hemoglobin is at 7.4 today. Patient to receive Aranesp and will need improvements in hemoglobin prior to surgical intervention. Patient will also need outpatient testing including PET scans and further rectal imaging. Patient reports has not had a bowel movement but did have some discharge that with bloody from the rectum. Monitor CBC closely and will follow-up on repeat labs. Encouraged increase activity as tolerated. 10/20/2024 Patient is seen in follow-up today continues to report significant lower left quadrant abdominal and rectal pain being followed by general surgery as well as oncology. Hemoglobin is 7.1 today with no active bleeding other than patient noticing some mild bleeding in the stool. Appears to be residual from colo noscopy. Patient is receiving IV iron with hematology/oncology following and planning on outpatient follow-up. Patient will need outpatient rectal MRI as well as PET scan which will be arranged per Dr. Gonzalez. Continue to monitor for improvements in pain control with possible discharge planning in the next 24 hours. 10/21/2024 Patient presented to hospital with rectal bleed and anemia. Patient does have rectal neoplasm/malignancy. Status post colonoscopy reporting liquid sample due to extreme friability of the tissue. Hemoglobin 7.5 today compared to 7.1 yesterday. MCV 79.4 and platelets 533. Patient is getting IV iron supplementation. Awake alert and oriented x 3. On room air. Patient otherwise denied any complaints of chest pain or shortness of breath. No nausea vomiting or abd ominal pain. No cough or sputum production. Current medications reviewed. Review of systems: Constitutional: No reports of fatigue, fever, or chills Cardiovascular: No reports of chest pain or palpitations Respiratory: No reports of shortness of breath or cough GI: reports of occasional nausea, no reports of vomiting, no diarrhea : No reports of dysuria or retention Neurovascular: reports of generalized weakness All medications have been reviewed PHYSICAL EXAMINATION: GENERAL: The patient is alert and oriented x4, Well developed, well nourished. Obese, elderly appearing HEENT: Pupils are round and equally reacting to light. EOMI. no scleral icterus. No conjunctival pallor. Normocephalic, atraumatic. No pharyngeal erythema. No thyromegaly. CARDIOVASCULAR: S1 and S2 muffled PULMONARY: diminished breath sounds bilaterally with no wheezing or rhonchi noted. ABDOMEN: soft. Nontender on exam. obese. non-distended, normoactive bowel sounds. No palpable organomegaly. MUSCULOSKELETAL: No joint swelling or deformity. EXTREMITIES: No cyanosis, clubbing, or pedal edema. NEUROLOGICAL: Gross neurological examination did not reveal any focal deficits. SKIN: No rashes. Assessment: Rectal bleeding, status post colonoscopy with concerns of rectal malignancy, biopsies obtained but inadequate sample due to extreme friability. Scheduled for OR on Wednesday as per general surgery.. Abnormal CT with concerns of rectal carcinoma, follows with Dr. Gonzalez outpatient Jehovah witness and refusing blood products Morbid obesity with a BMI of 40.7 History of IBS History of asthma, not in exacerbation History of hemorrhoids was scheduled for hemorrhoidectomy by colorectal surgeon although was canceled due to anemia Chronic anemia history of diabetes mellitus, type II History of fibromyalgia Hypertension history GI prophylaxis DVT prophylaxis Full code Plan: Recommend to continue with current medications and management with general surgery and oncology following Patient is status post colonoscopy with multiple biopsies obtained and pending revealing malignancy awaiting official biopsy report. Patient will need outpatient PET scan and rectal MRI History of anemia and Gnosticist refusing blood products, follows with Dr. Gonzalez outpatient. Hemoglobin is 7.1 today and will monitor and repeat labs. Continue Aranesp and patient is receiving IV iron with hematology/oncology following Encouraged to increase activity as tolerated Slowly advance diet per general surgery Will attempt to control pain and discussed with oncology regarding outpatient follow-ups. Objective - Vital Signs Vital signs: Vital Signs Temp 98.3 F 10/21/24 15:06 Pulse 93 10/21/24 18:57 Resp 18 10/21/24 15:06 BP 121/65 10/21/24 15:06 Pulse Ox 97 10/21/24 15:06 FiO2 Intake & Output 10/21/24 10/21/24 10/22/24 06:59 18:59 06:59 Other: Voiding Method Toilet Toilet # Voids 2 2 - Labs CBC & Chem 7: 10/21/24 04:25 10/21/24 04:25 Labs: Abnormal Lab Results - Last 24 Hours (Table) 10/20/24 10/21/24 10/21/24 Range/Units 23:57 04:25 06:23 RBC 3.20 L (4.10-5.20) X 10*6/uL Hgb 7.5 L (12.0-15.0) g/dL Hct 25.4 L (37.2-46.3) % MCV 79.4 L (80.0-97.0) FL MCH 23.4 L (27.0-32.0) pg MCHC 29.5 L (32.0-37.0) g/dL RDW 22.1 H (11.5-14.5) % Plt Count 533 H (140-440) X 10*3/uL MPV 8.3 L (9.5-12.2) FL Potassium 3.4 L (3.5-5.1) mmol/L POC Glucose (mg/dL) 178 H (70-110) mg/dL 10/21/24 Range/Units 16:53 RBC (4.10-5.20) X 10*6/uL Hgb (12.0-15.0) g/dL Hct (37.2-46.3) % MCV (80.0-97.0) FL MCH (27.0-32.0) pg MCHC (32.0-37.0) g/dL RDW (11.5-14.5) % Plt Count (140-440) X 10*3/uL MPV (9.5-12.2) FL Potassium (3.5-5.1) mmol/L POC Glucose (mg/dL) 194 H (70-110) mg/dL Assessment and Plan Time with Patient: Greater than 30
[2024-10-21 21:04] LABS: Glucose,Whole Blood 122 mg/dL (70-110)
[2024-10-22 03:36] LABS: African American GFR (CKD) >90 (>60 ml/min/1.73 sqM); Anion Gap 8 mmol/L; Blood Urea Nitrogen 7 mg/dL (7-17); Carbon Dioxide 26 mmol/L (22-30); Chloride 104 mmol/L (98-107); Glucose 122 mg/dL (74-99); Non-African American GFR(CKD) >90 (>60 ml/min/1.73 sqM); Sodium 138 mmol/L (137-145)
[2024-10-22 03:46] LABS: Potassium 4.3 mmol/L (3.5-5.1)
[2024-10-22 03:57] LABS: Basophils # (A) 0.03 10*3/uL (0.00-0.10); Basophils % (A) 0.2 %; Eosinophils # (A) 0.26 10*3/uL (0.04-0.35); Eosinophils % (A) 2.2 %; HCT 22.8 % (37.2-46.3); HGB 7.1 g/dL (12.0-15.0); Lymphocytes % (A) 14.1 %; MCH 23.8 pg (27.0-32.0); MCHC 31.1 g/dL (32.0-37.0); MCV 76.5 fL (80.0-97.0); Mean Platelet Volume 8.2 fL (9.5-12.2); Monocytes # (A) 1.01 10*3/uL (0.20-1.00); Monocytes % (A) 8.4 %; Neutrophils # (A) 8.95 10*3/uL (1.80-7.70); Neutrophils % (A) 74.1 %; Platelet Count 487 10*3/uL (140-440); RBC 2.98 10*6/uL (4.10-5.20); RDW 22.1 % (11.5-14.5); WBC 12.07 10*3/uL (4.50-10.00)
[2024-10-22 04:49] LABS: Anisocytosis (M) Present; Hypochromasia (M) Present; Ovalocytes Present; Polychromasia Present
[2024-10-22 06:21] LABS: Glucose,Whole Blood 152 mg/dL (70-110)
[2024-10-22 10:54] LABS: Glucose,Whole Blood 138 mg/dL (70-110)
[2024-10-22 16:38] LABS: Glucose,Whole Blood 118 mg/dL (70-110)
--- NOTE | 2024-10-22 18:06 | P.PN ---
Subjective Progress Note Date: 10/22/24 CHIEF COMPLAINT: Rectal bleeding HISTORY OF PRESENT ILLNESS: The patient is a 74-year-old Jainism female who presents with rectal bleeding and moderate anemia, hemoglobin less than 8.0. She has been receiving daily iron IV infusions. Today, she has new fevers in the last 24 hours. Patient reports rectal pain. She reports some bleeding yesterday. Hemoglobin down 7.5-7.1 today. Per request of oncology, additional specimens of rectal mass is being requested. She has not been using any symptom spirometer since her admission. ROS: No reports of nausea and vomiting. No fevers or chills. No new chest pain. PHYSICAL EXAM: VITAL SIGNS: Reviewed CONSTITUTIONAL: Well developed and in no acute distress. EYES: Conjuctivae without sclera icterus. Extraocular movements grossly intact. HEAD, EARS, NOSE, THROAT: Moist buccal mucosa. Head is atraumatic, normocephalic. Hears conversational speech. No nasal drainage. RESPIRATORY: Non-labored respirations and equal bilateral excursions. CARDIOVASCULAR: Palpable 2+ radial pulses. ABDOMEN: Nontender. MUSCULOSKELETAL: No gross deformity of the lower extremities noted. No clubbing. No cyanosis. SKIN: Good skin turgor. Well perfused. NEUROLOGIC: Cranial nerves II through XII grossly intact. No focal or lateralizing signs. PSYCH: Appropriate affect. Alert and oriented to person, place and time. CLINICAL LABS: Reviewed. WBC elevated 9.9-12.07 leukocytosis. Hemoglobin down 7.5-7.1 today. No new iron studies upon this admission. PATHOLOGY: High-grade dysplasia for rectal mass. ASSESSMENT: 1. Rectal bleeding due to rectal neoplasm/malignancy 2. Abnormal CT scan for rectal cancer 3. Morbid obesity excess calories, BMI 40.7 4. Jainism 5. Family history of colon cancer grandmother, mother 6. Anemia due to chronic blood loss 7. Fevers 8. Leukocytosis PLAN: 1. She has new fevers with leukocytosis. For risk of proctitis, patient started on Zosyn 2. Rectal enema prior to transanal excisional biopsy described. She is elevated risk for bleeding. 3. As her hemoglobin since admission continues to trend downward with decline, consider anemia protocol for Jehovah witness including vitamin C 1000 - 1500 mg oral daily, vitamin B12 1000 mg oral daily, folate 1 g daily, epoetin 40 mcg weekly. 4. Diet adjusted to protein intake 90 g daily. 5. Patient will be n.p.o. after midnight. 6. Care plan and questions reviewed. 7. Patient reports that she does not have a primary care provider which was thoroughly discussed with her for coordination of care Dictation was produced using [employer] dictation software. Please excuse any grammatical, word or spelling errors. Objective - Vital Signs Vital signs: Vital Signs Temp 100.2 F H 10/22/24 15:44 Pulse 84 10/22/24 16:25 Resp 18 10/22/24 14:00 BP 139/66 10/22/24 14:00 Pulse Ox 95 10/22/24 14:00 FiO2 Intake & Output 10/21/24 10/22/24 10/22/24 18:59 06:59 18:59 Other: Voiding Method Toilet Toilet # Voids 2 3 4 # Bowel Movements 0 - Labs CBC & Chem 7: 10/22/24 02:36 10/22/24 02:36 Labs: Abnormal Lab Results - Last 24 Hours (Table) 10/21/24 10/22/24 10/22/24 Range/Units 21:02 02:36 02:36 WBC 12.07 H (4.50-10.00) 10*3/uL RBC 2.98 L (4.10-5.20) 10*6/uL Hgb 7.1 L (12.0-15.0) g/dL Hct 22.8 L (37.2-46.3) % MCV 76.5 L (80.0-97.0) fL MCH 23.8 L (27.0-32.0) pg MCHC 31.1 L (32.0-37.0) g/dL RDW 22.1 H (11.5-14.5) % Plt Count 487 H (140-440) 10*3/uL MPV 8.2 L (9.5-12.2) fL Immature Gran # 0.12 H (0.00-0.04) 10*3/uL Neutrophils # 8.95 H (1.80-7.70) 10*3/uL Monocytes # 1.01 H (0.20-1.00) 10*3/uL Creatinine 0.48 L (0.52-1.04) mg/dL Glucose 122 H (74-99) mg/dL POC Glucose (mg/dL) 122 H (70-110) mg/dL 10/22/24 10/22/24 10/22/24 Range/Units 06:20 10:50 16:35 WBC (4.50-10.00) 10*3/uL RBC (4.10-5.20) 10*6/uL Hgb (12.0-15.0) g/dL Hct (37.2-46.3) % MCV (80.0-97.0) fL MCH (27.0-32.0) pg MCHC (32.0-37.0) g/dL RDW (11.5-14.5) % Plt Count (140-440) 10*3/uL MPV (9.5-12.2) fL Immature Gran # (0.00-0.04) 10*3/uL Neutrophils # (1.80-7.70) 10*3/uL Monocytes # (0.20-1.00) 10*3/uL Creatinine (0.52-1.04) mg/dL Glucose (74-99) mg/dL POC Glucose (mg/dL) 152 H 138 H 118 H (70-110) mg/dL
[2024-10-22] MEDS: FOLIC ACID 1 MG TAB PO SCH (18:27)
[2024-10-22] MEDS: ASCORBIC ACID 500 MG TAB PO SCH (18:27)
[2024-10-22] MEDS: CYANOCOBALAMIN 500 MCG TAB PO SCH (18:27)
[2024-10-22] MEDS: PIPERACILLIN-TAZOBACTAM 3.375 GM in SODIUM CHLORIDE 0.9% 100 ML IVPB SCH (18:30)
[2024-10-22 19:25] LABS: Appearance,Urine Clear (Clear); Bacteria,Urine Rare /hpf; Bilirubin,Urine Negative (Negative); Blood,Urine Moderate (Negative); Color,Urine Colorless; Glucose,Urine (UA) Negative (Negative); Ketones,Urine Negative (Negative); Leukocyte Esterase,Urine Large (Negative); Nitrite,Urine Negative (Negative); PH, Urine 6.5 (5.0-8.0); Protein,Urine Negative (Negative); RBC,Urine 6 /hpf (0-5); Specific Gravity,Urine 1.005 (1.001-1.035); Squamous Epithelial Cell,Urine <1 /hpf (0-4); Urobilinogen,Urine <2.0 mg/dL (<2.0); WBC,Urine 124 /hpf (0-5)
[2024-10-22 20:28] LABS: Glucose,Whole Blood 126 mg/dL (70-110)
[2024-10-22] MEDS: DARBEPOETIN ALFA 40 MCG/0.4 ML SYRINGE SQ SCH (22:39)
[2024-10-23 06:28] LABS: Glucose,Whole Blood 120 mg/dL (70-110)
[2024-10-23] MEDS: NA PHOS,M-B/NA PHOS,DI-BA 133 ML ENEMA RECTAL ONE (07:30)
--- NOTE | 2024-10-23 09:00 | P.PN ---
Subjective Progress Note Date: 10/23/24 CHIEF COMPLAINT: Rectal bleeding HISTORY OF PRESENT ILLNESS: The patient is a 74-year-old Pentecostal female who presents with rectal bleeding and moderate anemia, hemoglobin less than 8.0. Yesterday afternoon, she had temperature of 100.0. This morning, she received an antibiotic and had mixed blood and brown stools. ROS: No reports of nausea and vomiting. No fevers or chills. No new chest pain. PHYSICAL EXAM: VITAL SIGNS: Reviewed CONSTITUTIONAL: Well developed and in no acute distress. EYES: Conjuctivae without sclera icterus. Extraocular movements grossly intact. HEAD, EARS, NOSE, THROAT: Moist buccal mucosa. Head is atraumatic, normocephalic. Hears conversational speech. No nasal drainage. RESPIRATORY: Non-labored respirations and equal bilateral excursions. CARDIOVASCULAR: Palpable 2+ radial pulses. ABDOMEN: Nontender. MUSCULOSKELETAL: No gross deformity of the lower extremities noted. No clubbing. No cyanosis. SKIN: Good skin turgor. Well perfused. NEUROLOGIC: Cranial nerves II through XII grossly intact. No focal or lateralizing signs. PSYCH: Appropriate affect. Alert and oriented to person, place and time. CLINICAL LABS: Reviewed. Urine analysis positive for blood. Negative for nitrates. PATHOLOGY: High-grade dysplasia for rectal mass. ASSESSMENT: 1. Rectal bleeding due to rectal neoplasm/malignancy 2. Abnormal CT scan for rectal cancer 3. Morbid obesity excess calories, BMI 40.7 4. Pentecostal 5. Family history of colon cancer grandmother, mother 6. Anemia due to chronic blood loss 7. Fevers 8. Leukocytosis PLAN: 1. Recommend transanal excisional biopsy for depth and size of invasion including control of bleeding. Dictation was produced using [employer] dictation software. Please excuse any grammatical, word or spelling errors. Objective - Vital Signs Vital signs: Vital Signs Temp 98.3 F 10/23/24 02:00 Pulse 80 10/23/24 02:32 Resp 20 10/23/24 02:32 BP 141/61 10/23/24 02:00 Pulse Ox 98 10/23/24 02:00 FiO2 Intake & Output 10/22/24 10/23/24 10/23/24 18:59 06:59 18:59 Other: Voiding Method Toilet # Voids 4 3 # Bowel Movements 0 - Labs CBC & Chem 7: 10/22/24 02:36 10/22/24 02:36 Labs: Abnormal Lab Results - Last 24 Hours (Table) 10/22/24 10/22/24 10/22/24 Range/Units 10:50 16:35 17:55 POC Glucose (mg/dL) 138 H 118 H (70-110) mg/dL Urine Blood Moderate H (Negative) Ur Leukocyte Esterase Large H (Negative) Urine RBC 6 H (0-5) /hpf Urine WBC 124 H (0-5) /hpf Urine Bacteria Rare H (None) /hpf 10/22/24 10/23/24 Range/Units 20:26 06:26 POC Glucose (mg/dL) 126 H 120 H (70-110) mg/dL Urine Blood (Negative) Ur Leukocyte Esterase (Negative) Urine RBC (0-5) /hpf Urine WBC (0-5) /hpf Urine Bacteria (None) /hpf
[2024-10-23] MEDS: IV FLUID CONTINUATION 1,000 ML IV ONE (09:11)
[2024-10-23 09:22] LABS: BUN/Creat Ratio 13.67 Ratio (12.00-20.00); Blood Urea Nitrogen 8.2 mg/dL (9.0-27.0); Calcium 8.7 mg/dL (8.7-10.3); Carbon Dioxide 25.7 mmol/L (21.6-31.8); Chloride 104 mmol/L (96-109); Glucose 132 mg/dL (70-110); Potassium 3.7 mmol/L (3.5-5.5); Sodium 139 mmol/L (135-145)
[2024-10-23 09:23] LABS: Basophils # (A) 0.03 X 10*3/uL (0.00-0.10); Basophils % (A) 0.3 %; Eosinophils # (A) 0.27 X 10*3/uL (0.04-0.35); Eosinophils % (A) 2.6 %; HGB 6.7 g/dL (12.0-15.0); Lymphocytes # (A) 1.46 X 10*3/uL (0.90-5.00); Lymphocytes % (A) 14.2 %; MCH 23.1 pg (27.0-32.0); MCHC 29.1 g/dL (32.0-37.0); MCV 79.3 FL (80.0-97.0); Mean Platelet Volume 8.4 FL (9.5-12.2); Monocytes # (A) 1.07 X 10*3/uL (0.20-1.00); Monocytes % (A) 10.4 %; NRBC Per 100 WBC 0 X 10*3/uL (0.00-0.01); Neutrophils % (A) 71.9 %; Platelet Count 519 X 10*3/uL (140-440); RDW 22.4 % (11.5-14.5); WBC 10.29 X 10*3/uL (4.50-10.00)
[2024-10-23] MEDS: LACTATED RINGERS 1,000 ML IV SCH (09:56)
[2024-10-23] MEDS: DEXAMETHASONE SOD PHOSPHATE 4 MG/ML 1 ML VIAL IVP STA (10:01)
[2024-10-23 10:02] LABS: Glucose,Whole Blood 95 mg/dL (70-110)
[2024-10-23] MEDS: ONDANSETRON 4 MG/2 ML VIAL IVP PRN (10:02)
[2024-10-23] MEDS: FAMOTIDINE 20 MG/2 ML VIAL IV STA (10:02)
[2024-10-23] MEDS ORDERED: fentaNYL (PF) 50 MCG/ML 2 ML AMP ONE (10:04)
[2024-10-23] MEDS ORDERED: NEOSTIGMINE 1 MG/ML 10 ML VIAL ONE (10:04)
[2024-10-23] MEDS ORDERED: GLYCOPYRROLATE 0.2 MG/ML 2 ML VIAL ONE (10:04)
[2024-10-23] MEDS ORDERED: SUCCINYLCHOLINE CHLORIDE 200 MG/10 ML VIAL IV ONE (10:04)
[2024-10-23] MEDS ORDERED: LIDOCAINE 1% INJ 10MG/ML (20 ML MDV) ONE (10:04)
[2024-10-23] MEDS ORDERED: PROPOFOL 10 MG/ML 20 ML VIAL IV ONE (10:04)
[2024-10-23] MEDS ORDERED: PHENYLEPHRINE-0.9% NACL SYG 1,000 MCG/10 ML SYRINGE ONE (10:04)
[2024-10-23] MEDS ORDERED: ROCURONIUM 10 MG/ML (5 ML VIAL) IV ONE (10:04)
[2024-10-23] MEDS: EPINEPHrine 1 MG/ML (MDV) 30 ML VIAL SQ ONE (10:44)
[2024-10-23] MEDS: LIDOCAINE 1%-EPI 1:100,000 20 ML VIAL SQ ONE (10:44)
[2024-10-23] MEDS: IPRATROPIUM-ALBUTEROL 3 ML NEB INHALATION STA (11:34)
[2024-10-23 17:12] LABS: Glucose,Whole Blood 171 mg/dL (70-110)
--- NOTE | 2024-10-23 19:23 | P.PN ---
Subjective Progress Note Date: 10/22/24 This is a pleasant 74-year-old female who follows with Dr. Gonzalez in the outpatient setting with past medical history of asthma, fibromyalgia, IBS, diabetes mellitus, hypertension and is noted to have bloody stools and was scheduled by colorectal surgeon to have hemorrhoidectomy although hemoglobin was noted to be low and is a Restorationist refusing blood products. Patient being followed by general surgery here status post endoscopic colonoscopy confirming rectal malignancies. Multiple biopsies obtained and pending at this time and oncology is following. Patient receiving IV iron and hemoglobin is at 7.4 today. Patient to receive Aranesp and will need improvements in hemoglobin prior to surgical intervention. Patient will also need outpatient testing including PET scans and further rectal imaging. Patient reports has not had a bowel movement but did have some discharge that with bloody from the rectum. Monitor CBC closely and will follow-up on repeat labs. Encouraged increase acti vity as tolerated. 10/20/2024 Patient is seen in follow-up today continues to report significant lower left quadrant abdominal and rectal pain being followed by general surgery as well as oncology. Hemoglobin is 7.1 today with no active bleeding other than patient noticing some mild bleeding in the stool. Appears to be residual from colonoscopy. Patient is receiving IV iron with hematology/oncology following and planning on outpatient follow-up. Patient will need outpatient rectal MRI as well as PET scan which will be arranged per Dr. Gonzalez. Continue to monitor for improvements in pain control with possible discharge planning in the next 24 hours. 10/21/2024 Patient presented to hospital with rectal bleed and anemia. Patient does have rectal neoplasm/malignancy. Status post colonoscopy reporting liquid sample due to extreme friability of the tissue. Hemoglobin 7.5 today compared to 7.1 yesterday. MCV 79.4 and platelets 533. Patient is getting IV iron supplementation. Awake alert and oriented x 3. On room air. Patient otherwise denied any complaints of chest pain or shortness of breath. No nausea vomiting or abdominal pain. No cough or sputum production. 10/22/2024 Patient is lying in the bed. Awake alert and oriented. No complaints of chest pain or shortness of breath no cough or sputum production. Denies any active rectal bleeding. Patient has been afebrile. General surgery is planning for transanal excisional biopsy on Wednesday. Otherwise hemoglobin 7.1 today. Patient is Restorationist. Patient was also started on renal protocol with vitamin C, B12 folate and darbepoetin. Other laboratory showed WBC 12.0 hemoglobin 7.1 and MCV 76.5 and platelets 487 patient also received IV iron. Sodium 138 potassium 4.3 chloride 104 bicarb is 26 BUN 17 creatinine 0.48 and blood sugar 122. Currently on antibiotics of Zosyn. General Surgery oncology and ID on board. Current medications reviewed. Review of systems: Constitutional: No reports of fatigue, fever, or chills Cardiovascular: No reports of chest pain or palpitations Respiratory: No reports of shortness of breath or cough GI: reports of occasional nausea, no reports of vomiting, no diarrhea : No reports of dysuria or retention Neurovascular: reports of generalized weakness All medications have been reviewed PHYSICAL EXAMINATION: GENERAL: The patient is alert and oriented x4, Well developed, well nourished. Obese, elderly appearing HEENT: Pupils are round and equally reacting to light. EOMI. no scleral icterus. No conjunctival pallor. Normocephalic, atraumatic. No pharyngeal erythema. No thyromegaly. CARDIOVASCULAR: S1 and S2 muffled PULMONARY: diminished breath sounds bilaterally with no wheezing or rhonchi noted. ABDOMEN: soft. Nontender on exam. obese. non-distended, normoactive bowel sounds. No palpable organomegaly. MUSCULOSKELETAL: No joint swelling or deformity. EXTREMITIES: No cyanosis, clubbing, or pedal edema. NEUROLOGICAL: Gross neurological examination did not reveal any focal deficits. SKIN: No rashes. Assessment: Rectal bleeding, status post colonoscopy with concerns of rectal malignancy, biopsies obtained but inadequate sample due to extreme friability. Scheduled for OR on Wednesday as per general surgery.. Abnormal CT with concerns of rectal carcinoma, follows with Dr. Gonzalez outpatient Jehovah witness and refusing blood products Morbid obesity with a BMI of 40.7 History of IBS History of asthma, not in exacerbation History of hemorrhoids was scheduled for hemorrhoidectomy by colorectal surgeon although was canceled due to anemia Acute on chronic anemia. Patient is Restorationist. history of diabetes mellitus, type II History of fibromyalgia Hypertension history GI prophylaxis DVT prophylaxis Full code Plan: Recommend to continue with current medications and management with general surgery and oncology following Patient is status post colonoscopy with multiple biopsies obtained and pending revealing malignancy awaiting official biopsy report. Patient will need outpatient PET scan and rectal MRI History of anemia and Restorationist refusing blood products, follows with Dr. Gonzalez outpatient. Hemoglobin is 7.1 today and will monitor and repeat labs. Continue Aranesp and patient is receiving IV iron with hematology/oncology following Encouraged to increase activity as tolerated Slowly advance diet per general surgery Will attempt to control pain and discussed with oncology regarding outpatient follow-ups. Objective - Vital Signs Vital signs: Vital Signs Temp 99.1 F 10/22/24 07:25 Pulse 84 10/22/24 08:37 Resp 18 10/22/24 07:25 BP 126/74 10/22/24 07:25 Pulse Ox 99 10/22/24 08:24 FiO2 Intake & Output 10/21/24 10/22/24 10/22/24 18:59 06:59 18:59 Other: Voiding Method Toilet Toilet # Voids 2 3 - Labs CBC & Chem 7: 10/23/24 02:28 10/23/24 02:28 Labs: Abnormal Lab Results - Last 24 Hours (Table) 10/21/24 10/21/24 10/22/24 Range/Units 16:53 21:02 02:36 WBC 12.07 H (4.50-10.00) 10*3/uL RBC 2.98 L (4.10-5.20) 10*6/uL Hgb 7.1 L (12.0-15.0) g/dL Hct 22.8 L (37.2-46.3) % MCV 76.5 L (80.0-97.0) fL MCH 23.8 L (27.0-32.0) pg MCHC 31.1 L (32.0-37.0) g/dL RDW 22.1 H (11.5-14.5) % Plt Count 487 H (140-440) 10*3/uL MPV 8.2 L (9.5-12.2) fL Immature Gran # 0.12 H (0.00-0.04) 10*3/uL Neutrophils # 8.95 H (1.80-7.70) 10*3/uL Monocytes # 1.01 H (0.20-1.00) 10*3/uL Creatinine (0.52-1.04) mg/dL Glucose (74-99) mg/dL POC Glucose (mg/dL) 194 H 122 H (70-110) mg/dL 10/22/24 10/22/24 10/22/24 Range/Units 02:36 06:20 10:50 WBC (4.50-10.00) 10*3/uL RBC (4.10-5.20) 10*6/uL Hgb (12.0-15.0) g/dL Hct (37.2-46.3) % MCV (80.0-97.0) fL MCH (27.0-32.0) pg MCHC (32.0-37.0) g/dL RDW (11.5-14.5) % Plt Count (140-440) 10*3/uL MPV (9.5-12.2) fL Immature Gran # (0.00-0.04) 10*3/uL Neutrophils # (1.80-7.70) 10*3/uL Monocytes # (0.20-1.00) 10*3/uL Creatinine 0.48 L (0.52-1.04) mg/dL Glucose 122 H (74-99) mg/dL POC Glucose (mg/dL) 152 H 138 H (70-110) mg/dL
[2024-10-23 20:34] LABS: Glucose,Whole Blood 151 mg/dL (70-110)
[2024-10-24] MEDS: SODIUM FERRIC GLUCONAT-SUCROSE 125 MG in SODIUM CHLORIDE 0.9% 100 ML IVPB SCH (00:52)
--- NOTE | 2024-10-24 04:25 | PN ---
PROGRESS NOTE SUBJECTIVE: A 74-year-old white female, status post rectal biopsy x2 today. Specimen is pending. The patient is awaiting pathology. OBJECTIVE: VITAL SIGNS: Temp 98.3, blood pressure 103/75, O2 of 97% on 2 L, pulse rate is 81 to 103, respiratory rate 16 to 18. CARDIOVASCULAR: S1, S2. LUNGS: Decreased breath sounds. GENERAL: Sitting up in bed. Alert and oriented x3. NEUROLOGIC: Cranial nerves intact. White count is 10.29. Hemoglobin is down to 6.7. Consult Dr. Nails for severe anemia. She is Jehovah Witness. Give iron infusions and wait for Dr. Nails's recommendations. We will wait for pathology. Continue current treatment. MMODL / IJN: [id number] /
[2024-10-24 06:13] LABS: Glucose,Whole Blood 129 mg/dL (70-110)
--- NOTE | 2024-10-24 08:18 | P.OP ---
Date of Procedure: 10/23/24 Description of Procedure: SURGEON: JASPREET MALDONADO MD LAB NURSE: NONE. PREOPERATIVE DIAGNOSES: 1. Rectal mass with high-grade dysplasia 2. Morbid obesity excess calories, BMI 40.[address] scan for rectal malignancy 4. Rectal bleeding due to rectal mass 5. Acute blood loss anemia, hemoglobin 6.7 6. Mandaeism with refusal of blood products 7. Chronic iron deficiency anemia 8. Chronic obstructive pulmonary disease due to asthma 9. Depressive disorder 10. Obstructive sleep apnea 11. Fibromyalgia 12. Generalized anxiety disorder POSTOPERATIVE DIAGNOSES: 1. Rectal malignancy 2. Morbid obesity excess calories, BMI 40.[address] scan for rectal malignancy 4. Rectal bleeding due to rectal mass 5. Acute blood loss anemia, hemoglobin 6.7 6. Mandaeism with refusal of blood products 7. Chronic iron deficiency anemia 8. Chronic obstructive pulmonary disease due to asthma 9. Depressive disorder 10. Obstructive sleep apnea 11. Fibromyalgia 12. Generalized anxiety disorder OPERATION: 1. Transanal incisional biopsy of rectal malignancy ANESTHESIA: General Endotracheal intubation ESTIMATED BLOOD LOSS: 30 mL. PATHOLOGY: 1. Piecemeal biopsy of large rectal malignancy FINDINGS: 1. Large fungating, easily friable fixed and firm rectal malignancy with partial obstruction palpated 4 cm from the anal verge to 10 cm from the anal verge over 70% circumferential mass 2. Mild anal stenosis with external greater than hemorrhoids INDICATIONS: The patient is a 74-year-old female who presents with rectal bleeding from rectal mass. She completed a colonoscopy however biopsy was insufficient for pathology regarding adenocarcinoma. Patient's hemoglobin prior to procedure was 57.0. Patient was placed on blood alternatives including iron infusions, vitamin B12, folate, Aranesp as she is a Jehovah witness and refuses blood. Surgical intervention was described for transanal biopsy. Benefits and risks of the procedure, including bleeding, infection, incontinence, recurrent pain and recurrence of the hemorrhoids were discussed in detail. Informed consent was obtained. DESCRIPTION: Patient was brought to the operating room. Initially, patient was placed an LMA and lithotomy however due to location of mass, patient was proposed for repositioning. General anesthesia was performed. She was repositioned in the prone jackknife position. Next, the perineum and buttocks was spread apart using Mastisol. The perineum was then prepped and draped in standard sterile fashion using Betadine. Patient was placed on scheduled antibiotics of Zosyn. Prior to incision, a timeout protocol was confirmed with surgical team. A perineal block using lidocaine and epinephrine was done. Initially 2 fingers was easily inserted for dilation of the anus with anal stenosis confirmed. Mass was palpated 3 to 4 cm from the anal verge. The mass was easily friable, firm, and fungating and easily bleeding. With palpation and inspection, pieces of the tumor had easily broken off and specimens were collected. The mass was palpated and 8 to 10 cm from the anal verge with deep palpation. The mass was causing partial obstruction and involving greater than 70% circumference of the lumen. Next, using a Hill-Leonardo anoscope, limited view of the mass is obtained due to her anal stenosis. As moderate specimens were obtained with digital palpation and fractioning of the mass, epinephrine soaked sponges were placed within the rectum to control the bleeding. Hemostasis was checked with minimal bleeding after 2 minutes of epinephrine soaked gauze. Several 4 x 4 gauze and mesh underwear was placed. At the end of the procedure, needle, sponge, and counts had been verified correct by the hand frame surgical elastic knitter. The patient then had tolerated the procedure well. Intraoperative findings were contacted and described to her son by telephone.
[2024-10-24 08:22] LABS: Basophils # (A) 0.02 X 10*3/uL (0.00-0.10); Basophils % (A) 0.2 %; Eosinophils # (A) 0.01 X 10*3/uL (0.04-0.35); Eosinophils % (A) 0.1 %; HGB 7.4 g/dL (12.0-15.0); Lymphocytes # (A) 1.44 X 10*3/uL (0.90-5.00); Lymphocytes % (A) 14.1 %; MCH 23.3 pg (27.0-32.0); MCHC 29.6 g/dL (32.0-37.0); MCV 78.9 FL (80.0-97.0); Mean Platelet Volume 8.4 FL (9.5-12.2); Monocytes # (A) 0.49 X 10*3/uL (0.20-1.00); Monocytes % (A) 4.8 %; NRBC Per 100 WBC 0 X 10*3/uL (0.00-0.01); Neutrophils % (A) 80.4 %; Platelet Count 570 X 10*3/uL (140-440); RBC 3.17 X 10*6/uL (4.10-5.20); RDW 22.8 % (11.5-14.5)
[2024-10-24 11:44] LABS: Glucose,Whole Blood 102 mg/dL (70-110)
--- NOTE | 2024-10-24 13:43 | PN ---
PROGRESS NOTE SUBJECTIVE: A 74-year-old white female with anemia, abnormal CAT scan. She is status post biopsy of the rectal area for possible rectal cancer due to high-grade dysplasia. She is a Jehovah Witness. She had severe anemia. We will give her IV Venofer to prevent her hemoglobin from dropping. Her labs today are better with a hemoglobin of 7.4, white count 10.2, glucose is mid 100s. OBJECTIVE: GENERAL: She is alert and oriented x3, giving appropriate answers. CARDIOVASCULAR: S1, S2. LUNGS: Transmitted upper sounds. GI: Soft. Distended. Morbid obesity. VITAL SIGNS: Saturating 99% on nasal cannula. Blood pressure is 120/61, temperature 98, pulse 77, respiratory rate 17 to 18. ASSESSMENT: Acute on chronic anemia, rectal high-grade dysplasia, rule out cancer. Continue current treatments. Monitor hemoglobin. Give Venofer. Hemoglobin is improved from 6, something up to 7.4 today. Prognosis guarded. MMODL / IJN: [id number] /
--- NOTE | 2024-10-24 13:59 | P.PN ---
Subjective Progress Note Date: 10/24/24 CHIEF COMPLAINT: Rectal bleeding HISTORY OF PRESENT ILLNESS: This is 74-year-old female presented with rectal bleeding. She is status post EGD and colonoscopy. Colonoscopy results reported rectal malignancy with active bleeding and scattered diverticulosis. EGD reported diaphragmatic hiatus and erosive esophagitis. Oncology had requested additional biopsy results of the rectal mass. Patient is status post transanal incisional biopsy of rectal malignancy. Patient had significant bleeding during the night with blood clots. This bleeding has resolved. Hemoglobin did go down to 6.7 during the night and is now up to 7.4 after iron transfusion. Patient has had no further rectal bleeding. Afebrile. Vital stable. WBC 10.2 PHYSICAL EXAM: VITAL SIGNS: Reviewed GENERAL: Well-developed in no acute distress. HEENT: No sclera icterus. Extraocular movements grossly intact. Moist buccal mucosa. Head is atraumatic, normocephalic. Hears conversational speech. No nasal drainage. NECK: Supple without lymphadenopathy. CHEST: Non-labored respirations and equal bilateral excursions. CARDIOVASCULAR: Palpable 2+ radial pulses. ABDOMEN: Soft. Nondistended. Nontender. MUSCULOSKELETAL: No clubbing or cyanosis. NEUROLOGIC: No focal or lateralizing signs. Cranial nerves II through XII g rossly intact. PSYCH: Appropriate affect. Alert and oriented to person, place and time. SKIN: Well perfused. Good skin turgor. ASSESSMENT: 1. Rectal malignancy 2. Morbid obesity excess calories, BMI 40.[address] scan for rectal malignancy 4. Rectal bleeding due to rectal mass 5. Acute blood loss anemia, hemoglobin 6.7 6. Evangelical with refusal of blood products 7. Chronic iron deficiency anemia 8. Chronic obstructive pulmonary disease due to asthma 9. Depressive disorder 10. Obstructive sleep apnea 11. Fibromyalgia 12. Generalized anxiety disorder PLAN: -Discussed with oncology service about possible radiation treatment to help stop the rectal bleeding. Oncology team will be discussing options with rad onc service -Continue IV iron, Aranesp and B12 supplment for patient's anemia -Continue to monitor hemoglobin -Continue to monitor for any signs or symptoms of bleeding -Recommend augment nutrition to high-protein diet of 80 to 90 g daily to improve nutritional outcome as well as surgical outcome -Continue antibiotics for leukocytosis Physician Fish Grader note has been reviewed by physician. Signing provider agrees with the documented findings, assessment, and plan of care. Objective - Vital Signs Vital signs: Vital Signs Temp 98.0 F 10/24/24 10:04 Pulse 77 10/24/24 10:04 Resp 17 10/24/24 10:04 BP 120/61 10/24/24 10:04 Pulse Ox 99 10/24/24 10:04 FiO2 Intake & Output 10/23/24 10/24/24 10/24/24 18:59 06:59 18:59 Intake Total 1250 Output Total 30 Balance 1220 Intake: IV 850 Oral 400 Output: Estimated Blood Loss 30 Other: # Voids 1 - Labs CBC & Chem 7: 10/24/24 02:49 10/23/24 02:28 Labs: Abnormal Lab Results - Last 24 Hours (Table) 10/23/24 10/23/24 10/24/24 Range/Units 17:10 20:29 02:49 WBC 10.20 H (4.50-10.00) X 10*3/uL RBC 3.17 L (4.10-5.20) X 10*6/uL Hgb 7.4 L (12.0-15.0) g/dL Hct 25.0 L (37.2-46.3) % MCV 78.9 L (80.0-97.0) FL MCH 23.3 L (27.0-32.0) pg MCHC 29.6 L (32.0-37.0) g/dL RDW 22.8 H (11.5-14.5) % Plt Count 570 H (140-440) X 10*3/uL MPV 8.4 L (9.5-12.2) FL Neutrophils # 8.20 H (1.80-7.70) X 10*3/uL Eosinophils # 0.01 L (0.04-0.35) X 10*3/uL POC Glucose (mg/dL) 171 H 151 H (70-110) mg/dL 10/24/24 Range/Units 06:11 WBC (4.50-10.00) X 10*3/uL RBC (4.10-5.20) X 10*6/uL Hgb (12.0-15.0) g/dL Hct (37.2-46.3) % MCV (80.0-97.0) FL MCH (27.0-32.0) pg MCHC (32.0-37.0) g/dL RDW (11.5-14.5) % Plt Count (140-440) X 10*3/uL MPV (9.5-12.2) FL Neutrophils # (1.80-7.70) X 10*3/uL Eosinophils # (0.04-0.35) X 10*3/uL POC Glucose (mg/dL) 129 H (70-110) mg/dL Microbiology - Last 24 Hours (Table) 10/22/24 17:55 Urine Culture - Preliminary Urine,Voided
[2024-10-24] MEDS: SODIUM CHLORIDE 0.9% 1,000 ML IV SCH (15:13)
[2024-10-24] MEDS: MELOXICAM 7.5 MG TAB PO SCH (15:13)
[2024-10-24 16:43] LABS: Glucose,Whole Blood 128 mg/dL (70-110)
--- NOTE | 2024-10-24 19:19 | P.PN ---
Subjective Progress Note Date: 10/24/24 Patient was experiencing rectal bleeding last night, it has since subsided. Hgb today 7.4. Continues IV iron and weekly EPO Objective - Vital Signs Vital signs: Vital Signs Temp 98.0 F 10/24/24 10:04 Pulse 77 10/24/24 10:04 Resp 17 10/24/24 10:04 BP 120/61 10/24/24 10:04 Pulse Ox 99 10/24/24 10:04 FiO2 Intake & Output 10/23/24 10/24/24 10/24/24 18:59 06:59 18:59 Intake Total 1250 Output Total 30 250 Balance 1220 -250 Intake: IV 850 Oral 400 Output: Urine 250 Estimated Blood Loss 30 Other: # Voids 1 # Bowel Movements 1 - Constitutional General appearance: Present: no acute distress - EENT Eyes: Present: anicteric sclerae, EOMI ENT: Present: hearing grossly normal - Respiratory Details: breathing is even and unlabored - Cardiovascular Details: skin warm and dry - Gastrointestinal General gastrointestinal: Present: soft. Absent: tenderness - Psychiatric Psychiatric: Present: A&O x's 3 - Labs CBC & Chem 7: 10/24/24 02:49 10/23/24 02:28 Labs: Abnormal Lab Results - Last 24 Hours (Table) 10/23/24 10/23/24 10/24/24 Range/Units 17:10 20:29 02:49 WBC 10.20 H (4.50-10.00) X 10*3/uL RBC 3.17 L (4.10-5.20) X 10*6/uL Hgb 7.4 L (12.0-15.0) g/dL Hct 25.0 L (37.2-46.3) % MCV 78.9 L (80.0-97.0) FL MCH 23.3 L (27.0-32.0) pg MCHC 29.6 L (32.0-37.0) g/dL RDW 22.8 H (11.5-14.5) % Plt Count 570 H (140-440) X 10*3/uL MPV 8.4 L (9.5-12.2) FL Neutrophils # 8.20 H (1.80-7.70) X 10*3/uL Eosinophils # 0.01 L (0.04-0.35) X 10*3/uL POC Glucose (mg/dL) 171 H 151 H (70-110) mg/dL 10/24/24 Range/Units 06:11 WBC (4.50-10.00) X 10*3/uL RBC (4.10-5.20) X 10*6/uL Hgb (12.0-15.0) g/dL Hct (37.2-46.3) % MCV (80.0-97.0) FL MCH (27.0-32.0) pg MCHC (32.0-37.0) g/dL RDW (11.5-14.5) % Plt Count (140-440) X 10*3/uL MPV (9.5-12.2) FL Neutrophils # (1.80-7.70) X 10*3/uL Eosinophils # (0.04-0.35) X 10*3/uL POC Glucose (mg/dL) 129 H (70-110) mg/dL Microbiology - Last 24 Hours (Table) 10/22/24 17:55 Urine Culture - Preliminary Urine,Voided Assessment and Plan (1) Abnormal CT scan Current Visit: Yes Status: Acute Priority: High Code(s): R93.89 - ABNORMAL FINDINGS ON DX IMAGING OF OTH BODY STRUCTURES SNOMED Code(s): 579253362 (2) Anemia Current Visit: Yes Status: Acute Priority: High Code(s): D64.9 - ANEMIA, UNSPECIFIED SNOMED Code(s): 988904636 (3) Rectal cancer Current Visit: Yes Status: Acute Priority: High Code(s): C20 - MALIGNANT NEOPLASM OF RECTUM SNOMED Code(s): 595541820 Plan: Rectal adenocarcinoma -CT of the abdomen and pelvis reports normal liver, spleen. Bilateral renal c ysts are noted. Prominent thickening through the rectum with an enlarged some small lymph nodes noted, 1.3 perirectal lymph node anterior to the sacrum -CT AP from [place] 09/14/24 reviewed -Unfortunately, on endoscopy a friable mass was found, concerning for malignancy. Biopsy showing fragments of villous adenoma with high grade dysplasia and features suggestive of superficial invasion. Discussed results with patient, findings appear consistent with rectal carcinoma. -Additional staging imaging will be ordered outpt-Rectal MRI and PET CT outpt. -Second biopsy positive for invasive rectal adenocarcinoma. Molecular studies will be obtained on specimen -Clinic f/u with Dr. Gonzalez upon discharge Anemia, secondary to bleeding hemorrhoids/rectal mass - Patient had plans for hemorrhoid banding with Dr. Mathis but, she is a [employer] and does not accept blood products. It was recommended by her business systems advisor that she have procedures done in an acute setting. -S/P upper and lower endoscopy, friable mass found -Patient does have labs consistent with iron deficiency-from ofc. She received 1 dose of Feraheme in the outpatient setting. Additional parenteral iron is ordered daily. Patient did struggle with tolerating oral iron due to complaints as well as constipation that further aggravates the bleeding hemorrhoids -Weekly EPO has been started. I did speak with her business systems advisor today, and he is requesting we review case studies on treatment of anemia in [employer]. Study was reviewed today. At this, time, as pt hgb has been >7 except for one CBC, will continue with weekly dosing of EPO. If hgb is consistently below 7 will discuss starting daily EPO as was reviewed in study. Today hgb, 7.4, rectal bleeding has resolved. Discussed case with surgery, if bleeding is persisting, will further discuss with rad onc about initiating palliative RT for rectal bleeding. If bleeding is controlled would prefer to complete staging workup prior to proceeding with treatment. Will continue to follow closely -Continue to monitor daily CBC
[2024-10-24 20:33] LABS: Glucose,Whole Blood 109 mg/dL (70-110)
[2024-10-25] MEDS: hydrOXYzine HCL 25 MG TAB PO PRN (00:58)
--- NOTE | 2024-10-25 02:10 | PN ---
PROGRESS NOTE SUBJECTIVE: The patient's hemoglobin is up to 7.4 from 6. She is getting IV iron infusions and she is awaiting pathology report. OBJECTIVE: CARDIOVASCULAR: S1, S2. LUNGS: Transmitted upper airway sounds. GI: Soft. HEMATOLOGY: Negative for Homans. PSYCHIATRIC: Fair mood and affect. Anemia, abnormal CAT scan, status post rectal biopsy, high-grade dysplasia, rule out rectal cancer. Pain control. Prognosis is guarded. Follow up in the next 24 to 48 hours. Check hemoglobin in the morning. MMODL / IJN: [id number] /
[2024-10-25 03:45] LABS: ALT 13 U/L (4-34); AST 29 U/L (14-36); African American GFR (CKD) >90 (>60 ml/min/1.73 sqM); Albumin 3.1 g/dL (3.5-5.0); Alkaline Phosphatase 98 U/L (38-126); Anion Gap 9 mmol/L; Blood Urea Nitrogen 16 mg/dL (7-17); Calcium 9.4 mg/dL (8.4-10.2); Carbon Dioxide 25 mmol/L (22-30); Chloride 105 mmol/L (98-107); Globulin 3.2 g/dL; Glucose 86 mg/dL (74-99); Non-African American GFR(CKD) 87 (>60 ml/min/1.73 sqM); Sodium 139 mmol/L (137-145); Total Bilirubin 0.6 mg/dL (0.2-1.3); Total Protein 6.3 g/dL (6.3-8.2)
[2024-10-25 06:12] LABS: Glucose,Whole Blood 106 mg/dL (70-110)
--- NOTE | 2024-10-25 08:08 | P.PN ---
Progress Note - Text Progress Note Date: 10/24/24 Patient requested that I contact her son, [phone]. Patient's son reports that he was seeking his mother to be transferred to [facility] in [place] due to a complicated medical care involving her being a Jehovah witness. Family is requesting high-dose treatment plan of Aranesp daily treatment instead of weekly treatment due to her anemia and chronic bleeding. Family does not want any blood transfusions and would like to proceed with aggressive treatment if possible for her anemia. At this time, patient's hemoglobin did improve from 6.7 to over 7.4 despite moderate bleeding the night before. Additionally, pathology came back confirmed rectal adenocarcinoma. Due to her chronic bleed ing, may benefit from radiation treatment. Staging is being requested per oncology. Family advised to discuss with oncology aggressive treatment for her anemia including other alternative and treatment plans. Surgery on standby for placement of Mediport for chemotherapy if needed. Conversation over 10 minutes performed from [id number]
[2024-10-25 08:30] LABS: HCT 25.1 % (37.2-46.3); HGB 7.3 g/dL (12.0-15.0); MCH 23.2 pg (27.0-32.0); MCHC 29.1 g/dL (32.0-37.0); MCV 79.9 FL (80.0-97.0); Mean Platelet Volume 8.1 FL (9.5-12.2); Platelet Count 603 X 10*3/uL (140-440); RBC 3.14 X 10*6/uL (4.10-5.20); RDW 23.4 % (11.5-14.5); WBC 11.79 X 10*3/uL (4.50-10.00)
[2024-10-25 08:31] LABS: Basophils # (A) 0.02 X 10*3/uL (0.00-0.10); Basophils % (A) 0.2 %; Eosinophils # (A) 0.23 X 10*3/uL (0.04-0.35); Lymphocytes # (A) 1.78 X 10*3/uL (0.90-5.00); Lymphocytes % (A) 15.1 %; Monocytes # (A) 0.88 X 10*3/uL (0.20-1.00); Monocytes % (A) 7.5 %; NRBC Per 100 WBC 0.04 X 10*3/uL (0.00-0.01); Neutrophils # (A) 8.76 X 10*3/uL (1.80-7.70); Neutrophils % (A) 74.2 %
[2024-10-25 11:35] LABS: Glucose,Whole Blood 111 mg/dL (70-110)
[2024-10-25] MEDS: SODIUM FERRIC GLUCONAT-SUCROSE 125 MG in SODIUM CHLORIDE 0.9% 100 ML IVPB SCH (11:45)
--- NOTE | 2024-10-25 14:35 | P.PN ---
Subjective Progress Note Date: 10/25/24 CHIEF COMPLAINT: Rectal bleeding HISTORY OF PRESENT ILLNESS: This is 74-year-old female presented with rectal bleeding. She is status post EGD and colonoscopy. Colonoscopy results reported rectal malignancy with active bleeding and scattered diverticulosis. EGD reported diaphragmatic hiatus and erosive esophagitis. Oncology had requested additional biopsy results of the rectal mass. Patient is status post transanal incisional biopsy of rectal malignancy. Patient is reporting minimal bleeding from the rectum. Hemoglobin stable at 7.3. Pathology result reported invasive rectal adenocarcinoma arising from high-grade dysplasia. PHYSICAL EXAM: VITAL SIGNS: Reviewed GENERAL: Well-developed in no acute distress. HEENT: No sclera icterus. Extraocular movements grossly intact. Moist buccal mucosa. Head is atraumatic, normocephalic. Hears conversational speech. No nasal drainage. NECK: Supple without lymphadenopathy. CHEST: Non-labored respirations and equal bilateral excursions. CARDIOVASCULAR: Palpable 2+ radial pulses. ABDOMEN: Soft. Nondistended. Nontender. MUSCULOSKELETAL: No clubbing or cyanosis. NEUROLOGIC: No focal or lateralizing signs. Cranial nerves II through XII grossly intact. PSYCH: Appropriate affect. Alert and oriented to person, place and time. SKIN: Well perfused. Good skin turgor. ASSESSMENT: 1. Rectal malignancy. Pathology result of invasive rectal adenocarcinoma 2. Morbid obesity excess calories, BMI 40.[address] scan for rectal malignancy 4. Rectal bleeding due to rectal mass 5. Acute blood loss anemia, hemoglobin 6.7 6. [employer]reg[employer] with refusal of blood products 7. Chronic iron deficiency anemia 8. Chronic obstructive pulmonary disease due to asthma 9. Depressive disorder 10. Obstructive sleep apnea 11. Fibromyalgia 12. Generalized anxiety disorder PLAN: -Patient is requesting transfer due to complicated medical care involving her being a Jehovah witness. -Discussed with oncology service about possible radiation treatment to help stop the rectal bleeding. Oncology recommendations noted -Continue IV iron, Aranesp and B12 supplment for patient's anemia -Continue to monitor hemoglobin -Continue to monitor for any signs or symptoms of bleeding -Continue low fiber, high-protein diet -Continue antibiotics for leukocytosis Physician Electrician Helper note has been reviewed by physician. Signing provider agrees with the documented findings, assessment, and plan of care. Objective - Vital Signs Vital signs: Vital Signs Temp 97.7 F 10/25/24 07:44 Pulse 88 10/25/24 08:20 Resp 18 10/25/24 07:44 BP 162/76 10/25/24 07:44 Pulse Ox 99 10/25/24 08:09 FiO2 Intake & Output 10/24/24 10/25/24 10/25/24 18:59 06:59 18:59 Output Total 251 Balance -251 Output: Urine 250 Urine/Stool Mix 1 Other: # Voids 1 2 # Bowel Movements 1 - Labs CBC & Chem 7: 10/25/24 05:18 10/25/24 02:41 Labs: Abnormal Lab Results - Last 24 Hours (Table) 10/24/24 10/25/24 10/25/24 Range/Units 16:41 02:41 05:18 WBC 11.79 H (4.50-10.00) X 10*3/uL RBC 3.14 L (4.10-5.20) X 10*6/uL Hgb 7.3 L (12.0-15.0) g/dL Hct 25.1 L (37.2-46.3) % MCV 79.9 L (80.0-97.0) FL MCH 23.2 L (27.0-32.0) pg MCHC 29.1 L (32.0-37.0) g/dL RDW 23.4 H (11.5-14.5) % Plt Count 603 H (140-440) X 10*3/uL MPV 8.1 L (9.5-12.2) FL Immature Gran # 0.12 H (0.00-0.04) X 10*3/uL Neutrophils # 8.76 H (1.80-7.70) X 10*3/uL NRBC/100 WBC Diff 0.04 H (0.00-0.01) X 10*3/uL POC Glucose (mg/dL) 128 H (70-110) mg/dL Albumin 3.1 L (3.5-5.0) g/dL Microbiology - Last 24 Hours (Table) 10/22/24 17:55 Urine Culture - Final Urine,Voided Proteus mirabilis
[2024-10-25 16:45] LABS: Glucose,Whole Blood 113 mg/dL (70-110)
[2024-10-25] MEDS ORDERED: RX INFO: IV CONTRAST WAS GIVEN 1 EACH MISC MISCELLANE PRN (17:41)
--- NOTE | 2024-10-25 18:01 | P.PN ---
Subjective Progress Note Date: 10/25/24 Rectal bleeding improved. Stool in toilet looked like small amount of blood but no significant blood or clotting noted. Hgb stable at 7.3. She is continued on IV iron and was given weekly EPO. Objective - Vital Signs Vital signs: Vital Signs Temp 97.7 F 10/25/24 07:44 Pulse 84 10/25/24 11:42 Resp 18 10/25/24 07:44 BP 162/76 10/25/24 07:44 Pulse Ox 99 10/25/24 08:09 FiO2 Intake & Output 10/24/24 10/25/24 10/25/24 18:59 06:59 18:59 Output Total 251 Balance -251 Output: Urine 250 Urine/Stool Mix 1 Other: # Voids 1 2 # Bowel Movements 1 - Constitutional General appearance: Present: no acute distress, obese - EENT Eyes: Present: anicteric sclerae, EOMI ENT: Present: hearing grossly normal - Respiratory Details: breathing is even and unlabored - Cardiovascular Details: skin warm and dry - Integumentary Integumentary: Absent: cyanotic, jaundiced - Neurologic Neurologic: Present: CNII-XII intact - Musculoskeletal Musculoskeletal: Present: strength equal bilaterally - Psychiatric Psychiatric: Present: A&O x's 3 - Labs CBC & Chem 7: 10/25/24 05:18 10/25/24 02:41 Labs: Abnormal Lab Results - Last 24 Hours (Table) 10/24/24 10/25/24 10/25/24 Range/Units 16:41 02:41 05:18 WBC 11.79 H (4.50-10.00) X 10*3/uL RBC 3.14 L (4.10-5.20) X 10*6/uL Hgb 7.3 L (12.0-15.0) g/dL Hct 25.1 L (37.2-46.3) % MCV 79.9 L (80.0-97.0) FL MCH 23.2 L (27.0-32.0) pg MCHC 29.1 L (32.0-37.0) g/dL RDW 23.4 H (11.5-14.5) % Plt Count 603 H (140-440) X 10*3/uL MPV 8.1 L (9.5-12.2) FL Immature Gran # 0.12 H (0.00-0.04) X 10*3/uL Neutrophils # 8.76 H (1.80-7.70) X 10*3/uL NRBC/100 WBC Diff 0.04 H (0.00-0.01) X 10*3/uL POC Glucose (mg/dL) 128 H (70-110) mg/dL Albumin 3.1 L (3.5-5.0) g/dL 10/25/24 Range/Units 11:33 WBC (4.50-10.00) X 10*3/uL RBC (4.10-5.20) X 10*6/uL Hgb (12.0-15.0) g/dL Hct (37.2-46.3) % MCV (80.0-97.0) FL MCH (27.0-32.0) pg MCHC (32.0-37.0) g/dL RDW (11.5-14.5) % Plt Count (140-440) X 10*3/uL MPV (9.5-12.2) FL Immature Gran # (0.00-0.04) X 10*3/uL Neutrophils # (1.80-7.70) X 10*3/uL NRBC/100 WBC Diff (0.00-0.01) X 10*3/uL POC Glucose (mg/dL) 111 H (70-110) mg/dL Albumin (3.5-5.0) g/dL Microbiology - Last 24 Hours (Table) 10/22/24 17:55 Urine Culture - Final Urine,Voided Proteus mirabilis Assessment and Plan (1) Abnormal CT scan Current Visit: Yes Status: Acute Priority: High Code(s): R93.89 - ABNORMAL FINDINGS ON DX IMAGING OF OTH BODY STRUCTURES SNOMED Code(s): 825720129 (2) Anemia Current Visit: Yes Status: Acute Priority: High Code(s): D64.9 - ANEMIA, UNSPECIFIED SNOMED Code(s): 555582160 (3) Rectal cancer Current Visit: Yes Status: Acute Priority: High Code(s): C20 - MALIGNANT NEOPLASM OF RECTUM SNOMED Code(s): 070728184 Plan: Rectal adenocarcinoma -CT of the abdomen and pelvis reports normal liver, spleen. Bilateral renal cysts are noted. Prominent thickening through the rectum with an enlarged some small lymph nodes noted, 1.3 perirectal lymph node anterior to the sacrum -CT AP from [place] 09/14/24 reviewed -Unfortunately, on endoscopy a friable mass was found, concerning for malignancy. Biopsy showing fragments of villous adenoma with high grade dysplasia and features suggestive of superficial invasion. Discussed results with patient, findings appear consistent with rectal carcinoma. -Additional staging imaging will be ordered outpt-Rectal MRI and PET CT outpt. -Second biopsy positive for invasive rectal adenocarcinoma. Molecular studies will be obtained on specimen -Clinic f/u with Dr. Gonzalez upon discharge Anemia, secondary to bleeding hemorrhoids/rectal mass - Patient had plans for hemorrhoid banding with Dr. Mathis but, she is a [employer] and does not accept blood products. It was recommended by her parts sales advisor that she have procedures done in an acute setting. -S/P upper and lower endoscopy, friable mass found -Patient does have labs consistent with iron deficiency-from ofc. She received 1 dose of Feraheme in the outpatient setting. Additional parenteral iron is ordered daily. Patient did struggle with tolerating oral iron due to complaints as well as constipation that further aggravates the bleeding hemorrhoids -Weekly EPO has been started. I did speak with her parts sales advisor, and he is requesting we review case studies on treatment of anemia in [employer]. Study was reviewed today. At this, time, as pt hgb has been consistently >7 except for one CBC, will continue with weekly dosing of EPO. If hgb is consistently below 7 will discuss starting daily EPO as was reviewed in study. Today hgb stable at 7.3, rectal bleeding has improved. Discussed case with surgery team -Continue to monitor daily CBC *Spoke with admitting team, Dr. Geiger, admitting doctor at [facility] and oncologist it solutions sales consultant, Dr. Broussard at [facility]. Oncologist does not feel patient meets requirements for hospital to hospital transfer and recommending outpt f/u. She also agrees with not giving EPO daily as recommended by patients parts sales advisor with her current hgb levels. Spoke with her primary Oncologist Dr. Gonzalez. Will obtain CT chest inpt for staging. Will also consult rad onc to further evaluate for possible RT Doctor attests: I performed a history and physical examination of this patient, developed impression and plan of care. Discussed with dictator. I agree with dictators note, documented as a scribe. Greater than 60 minutes spent with patient and coordinating care Time with Patient: Greater than 30
[2024-10-25 20:13] LABS: Glucose,Whole Blood 122 mg/dL (70-110)
[2024-10-26 06:29] LABS: Glucose,Whole Blood 91 mg/dL (70-110)
--- NOTE | 2024-10-26 07:38 | CT ---
EXAMINATION TYPE: CT chest w con DATE OF EXAM: 10/26/2024 7:21 AM COMPARISON: None. CLINICAL INDICATION: Female, 74 years old with history of staging, rectal adenocarcinoma, TECHNIQUE: Axial images were obtained at 5 mm thick sections. Reconstructed images are reviewed on [employer] computer in the coronal plane. Contrast used: mL of , (none if empty) Oral contrast used: (none if empty) CT DLP: 775.8 mGycm, Automated exposure control for dose reduction was used. FINDINGS: Portion of the thyroid visualized is normal. There is elevation of the right diaphragm. Some adjacent atelectasis appears to be present. Some mini mal compressive atelectasis and small left pleural effusion is present. There is a 0.8 cm nodule along the major fissure on the right. Series 205 image 17. There is some streak opacity in the posterior medial left lung base. This abuts the pleural margin me asures approximately 1.2 x 1.9 cm. Series 205 image 43. Atelectasis could be considered. Underlying p leural-based mass cannot be excluded at this level. No enlarged mediastinal or hilar adenopathy is evident. The ascending aorta diameter at the level o f the main pulmonary artery is 3.0 cm. The main pulmonary artery diameter at the bifurcation is 2.8 cm. Very minimal pericardial fluid may be present. No significant coronary artery calcifications. Limited CT sections are obtained through the upper abdomen. Abdomen is essentially unremarkable. IMPRESSION: 1. There is a posterior left pleural density may be streaky atelectasis or small mass. Consider PET C T for additional evaluation. 2. 0.8 cm nodule along the superior major fissure on the right. 3. Minimal left pleural effusion. 4. Very minimal pericardial effusion may be present. 5. Elevation of the right diaphragm with adjacent atelectasis [facility], , 10/26/2024 7:35 AM
[2024-10-26 10:22] LABS: Basophils # (A) 0.04 X 10*3/uL (0.00-0.10); Basophils % (A) 0.4 %; Eosinophils # (A) 0.18 X 10*3/uL (0.04-0.35); Eosinophils % (A) 1.9 %; HGB 7.8 g/dL (12.0-15.0); Lymphocytes # (A) 2.48 X 10*3/uL (0.90-5.00); Lymphocytes % (A) 26.8 %; MCH 23.4 pg (27.0-32.0); MCHC 28.9 g/dL (32.0-37.0); MCV 81.1 FL (80.0-97.0); Mean Platelet Volume 8.2 FL (9.5-12.2); Monocytes # (A) 0.87 X 10*3/uL (0.20-1.00); Monocytes % (A) 9.4 %; NRBC Per 100 WBC 0.04 X 10*3/uL (0.00-0.01); Neutrophils # (A) 5.64 X 10*3/uL (1.80-7.70); Neutrophils % (A) 60.9 %; Platelet Count 629 X 10*3/uL (140-440); RBC 3.33 X 10*6/uL (4.10-5.20); RDW 23.9 % (11.5-14.5); WBC 9.27 X 10*3/uL (4.50-10.00)
[2024-10-26 12:06] LABS: Glucose,Whole Blood 100 mg/dL (70-110)
--- NOTE | 2024-10-26 14:30 | P.PN ---
Subjective Progress Note Date: 10/26/24 CHIEF COMPLAINT: Rectal bleeding HISTORY OF PRESENT ILLNESS: This is 74-year-old female presented with rectal bleeding. She is status post EGD and colonoscopy. Colonoscopy results reported rectal malignancy with active bleeding and scattered diverticulosis. EGD reported diaphragmatic hiatus and erosive esophagitis. Oncology had requested additional biopsy results of the rectal mass. Patient is status post transanal incisional biopsy of rectal malignancy. Pathology result reported invasive rectal adenocarcinoma arising from high-grade dysplasia. Patient continues to have rectal bleeding. She had 2 bloody bowel movements this morning. Hemoglobin stable at 7.8. CTA chest reports posterior left pleural density may be streaky atelectasis or small mass. Consider PET scan. 0.8 cm nodule along the superior major fissure on the right. They are working on transferring patient to [facility] in [place]. Oncology recommendations are noted. PHYSICAL EXAM: VITAL SIGNS: Reviewed GENERAL: Well-developed in no acute distress. HEENT: No sclera icterus. Extraocular movements grossly intact. Moist buccal mucosa. Head is atraumatic, normocephalic. Hears conversational speech. No nasal drain age. NECK: Supple without lymphadenopathy. CHEST: Non-labored respirations and equal bilateral excursions. CARDIOVASCULAR: Palpable 2+ radial pulses. ABDOMEN: Soft. Nondistended. Nontender. MUSCULOSKELETAL: No clubbing or cyanosis. NEUROLOGIC: No focal or lateralizing signs. Cranial nerves II through XII grossly intact. PSYCH: Appropriate affect. Alert and oriented to person, place and time. SKIN: Well perfused. Good skin turgor. ASSESSMENT: 1. Rectal malignancy. Pathology result of invasive rectal adenocarcinoma 2. Morbid obesity excess calories, BMI 40.[address] scan for rectal malignancy 4. Rectal bleeding due to rectal mass 5. Acute blood loss anemia, hemoglobin 6.7 6. Catholic with refusal of blood products 7. Chronic iron deficiency anemia 8. Chronic obstructive pulmonary disease due to asthma 9. Depressive disorder 10. Obstructive sleep apnea 11. Fibromyalgia 12. Generalized anxiety disorder PLAN: -Patient is requesting transfer due to complicated medical care involving her being a Jehovah witness. -Transfer process is in progress. Patient awaiting bed. -Continue IV iron, Aranesp and B12 supplment for patient's anemia -Continue to monitor hemoglobin -Continue to monitor for any signs or symptoms of bleeding -Continue low fiber, high-protein diet Physician Mercury Cell Cleaner note has been reviewed by physician. Signing provider agrees with the documented findings, assessment, and plan of care. Objective - Vital Signs Vital signs: Vital Signs Temp 98.3 F 10/26/24 07:40 Pulse 72 10/26/24 09:01 Resp 16 10/26/24 07:40 BP 133/81 10/26/24 07:40 Pulse Ox 100 10/26/24 07:40 FiO2 Intake & Output 10/25/24 10/26/24 10/26/24 18:59 06:59 18:59 Weight 117.934 kg Other: # Voids 2 1 # Bowel Movements 1 - Labs CBC & Chem 7: 10/26/24 06:12 10/25/24 02:41 Labs: Abnormal Lab Results - Last 24 Hours (Table) 10/25/24 10/25/24 10/26/24 Range/Units 16:44 20:11 06:12 RBC 3.33 L (4.10-5.20) X 10*6/uL Hgb 7.8 L (12.0-15.0) g/dL Hct 27.0 L (37.2-46.3) % MCH 23.4 L (27.0-32.0) pg MCHC 28.9 L (32.0-37.0) g/dL RDW 23.9 H (11.5-14.5) % Plt Count 629 H (140-440) X 10*3/uL MPV 8.2 L (9.5-12.2) FL Immature Gran # 0.06 H (0.00-0.04) X 10*3/uL NRBC/100 WBC Diff 0.04 H (0.00-0.01) X 10*3/uL POC Glucose (mg/dL) 113 H 122 H (70-110) mg/dL
[2024-10-26 17:11] LABS: Glucose,Whole Blood 112 mg/dL (70-110)
--- NOTE | 2024-10-26 17:43 | P.PN ---
Subjective Progress Note Date: 10/26/24 Rectal bleeding improved, but still reporting blood in stools. Hgb stable, improved today to 7.8. Case discussed with rad onc, will plan for palliative RT to help with rectal bleeding. Pt reporting pain is well controlled today Objective - Vital Signs Vital signs: Vital Signs Temp 98.3 F 10/26/24 07:40 Pulse 72 10/26/24 09:01 Resp 16 10/26/24 07:40 BP 133/81 10/26/24 07:40 Pulse Ox 100 10/26/24 07:40 FiO2 Intake & Output 10/25/24 10/26/24 10/26/24 18:59 06:59 18:59 Weight 117.934 kg Other: # Voids 2 1 # Bowel Movements 1 - Constitutional General appearance: Present: no acute distress, obese - EENT Eyes: Present: anicteric sclerae, EOMI ENT: Present: hearing grossly normal - Respiratory Details: breathing is even and unlabored - Cardiovascular Details: skin warm and dry - Gastrointestinal General gastrointestinal: Present: soft. Absent: tenderness - Integumentary Integumentary: Absent: cyanotic, jaundiced - Psychiatric Psychiatric: Present: A&O x's 3 - Labs CBC & Chem 7: 10/26/24 06:12 10/25/24 02:41 Labs: Abnormal Lab Results - Last 24 Hours (Table) 10/25/24 10/25/24 10/26/24 Range/Units 16:44 20:11 06:12 RBC 3.33 L (4.10-5.20) X 10*6/uL Hgb 7.8 L (12.0-15.0) g/dL Hct 27.0 L (37.2-46.3) % MCH 23.4 L (27.0-32.0) pg MCHC 28.9 L (32.0-37.0) g/dL RDW 23.9 H (11.5-14.5) % Plt Count 629 H (140-440) X 10*3/uL MPV 8.2 L (9.5-12.2) FL Immature Gran # 0.06 H (0.00-0.04) X 10*3/uL NRBC/100 WBC Diff 0.04 H (0.00-0.01) X 10*3/uL POC Glucose (mg/dL) 113 H 122 H (70-110) mg/dL Assessment and Plan (1) Abnormal CT scan Current Visit: Yes Status: Acute Priority: High Code(s): R93.89 - ABNORMAL FINDINGS ON DX IMAGING OF OTH BODY STRUCTURES SNOMED Code(s): 398718101 (2) Anemia Current Visit: Yes Status: Acute Priority: High Code(s): D64.9 - ANEMIA, UNSPECIFIED SNOMED Code(s): 086854487 (3) Rectal cancer Current Visit: Yes Status: Acute Priority: High Code(s): C20 - MALIGNANT NEOPLASM OF RECTUM SNOMED Code(s): 306518417 Plan: Rectal adenocarcinoma -CT of the abdomen and pelvis reports normal liver, spleen. Bilateral renal cysts are noted. Prominent thickening through the rectum with an enlarged some small lymph nodes noted, 1.3 perirectal lymph node anterior to the sacrum -CT AP from [facility] 09/14/24 reviewed -Unfortunately, on endoscopy a friable mass was found, concerning for malignancy. Biopsy showing fragments of villous adenoma with high grade dysplasia and features suggestive of superficial invasion. Discussed results with patient, findings appear consistent with rectal carcinoma. -Additional staging imaging will be ordered outpt-Rectal MRI and PET CT outpt. -Second biopsy positive for invasive rectal adenocarcinoma. Molecular studies will be obtained on specimen -Clinic f/u with Dr. Gonzalez upon discharge Anemia, secondary to bleeding hemorrhoids/rectal mass - Patient had plans for hemorrhoid banding with Dr. Mathis but, she is a Jehovah's witness and does not accept blood products. It was recommended by her relationship advisor that she have procedures done in an acute setting. -S/P upper and lower endoscopy, friable mass found -Patient does have labs consistent with iron deficiency-from ofc. She received 1 dose of Feraheme in the outpatient setting. Additional parenteral iron is ordered daily. Patient did struggle with tolerating oral iron due to complaints as well as constipation that further aggravates the bleeding hemorrhoids -Weekly EPO has been started. I did speak with her relationship advisor, and he is requesting we review case studies on treatment of anemia in [place]. Study was reviewed. At this, time, as pt hgb has been consistently >7 except for one CBC, will continue with weekly dosing of EPO. If hgb is consistently below 7 will discuss starting daily EPO as was reviewed in study. Today hgb improved at 7.8 -Continue to monitor daily CBC *Spoke with admitting team, Dr. Geiger, admitting doctor at [facility] and oncologist family protection specialist, Dr. Broussard at [facility]. Oncologist does not feel patient meets requirements for hospital to hospital transfer and recommending outpt f/u. She also agrees with not giving EPO daily as recommended by patients relationship advisor with her current hgb levels. -Spoke with her primary Oncologist Dr. Gonzalez. Will obtain CT chest inpt for staging. Will also consult rad onc to further evaluate for possible RT -CT chest showing posterior left pleural density which may be streaky atelectasis versus small mass measuring 1.2 x 1.9 cm. 0.8 cm nodule along the superior major fissure on the right. Recommending PET/CT for further evaluation. Findings were discussed with patient. Discussed case with rad onc, will plan to start patient on palliative RT to try to help with rectal bleeding. After visit today, we were updated by primary RN that patient has now been acc epted for transfer to [facility]. At this time we will hold RT pending transfer. Pt was instructed to call clinic upon discharge from [facility] so we can reschedule f/u if needed
[2024-10-26 20:14] LABS: Glucose,Whole Blood 110 mg/dL (70-110)
[2024-10-26] MEDS: LOPERAMIDE 2 MG CAP PO PRN (20:53)
--- NOTE | 2024-10-26 21:14 | PN ---
PROGRESS NOTE SUBJECTIVE: A 74-year-old white female with rectal cancer, on biopsy. We tried to transfer her to [facility], but they will not take her because there is no reason for it. They did not do transfer even though our log truck driver/ oncologist talked to other log truck driver/oncologist, even though the primary care will take care of the oncologist, if it would not resolve. Tomorrow, we are going to get a CAT scan of the chest and possibly radiation consult and possibly discharge to home, if hemoglobin is stable. Continue home medicines. Prognosis is guarded. OBJECTIVE: CARDIOVASCULAR: S1, S2. LUNGS: Clear. GI: Soft. HEMATOLOGY: Negative for Homans. Prognosis is guarded. Continue current treatment. Discussed home medications if she goes home. Follow up with cancer treatment as an outpatient. MMODL / IJN: [id number] /
[2024-10-27 06:17] LABS: Glucose,Whole Blood 92 mg/dL (70-110)
[2024-10-27 07:42] VITALS: TEMP 97.9
--- NOTE | 2024-10-27 08:42 | P.PN ---
Subjective Progress Note Date: 10/27/24 CHIEF COMPLAINT: Rectal bleeding HISTORY OF PRESENT ILLNESS: The patient is a 74-year-old [employer] female who presents with rectal bleeding and moderate anemia, hemoglobin less than 8.0. Per discussion with patient including nurse at bedside, patient now has been accepted for transfer at [facility] by Dr. Ruiz. Patient reports longstanding history of diarrhea. Patient has been drinking apple juice. Hemoglobin did improve from 6.7-7.8 yesterday. ROS: No reports of nausea and vomiting. No fevers or chills. No new chest pain. PHYSICAL EXAM: VITAL SIGNS: Reviewed CONSTITUTIONAL: Well developed and in no acute distress. EYES: Conjuctivae without sclera icterus. Extraocular movements grossly intact. HEAD, EARS, NOSE, THROAT: Moist buccal mucosa. Head is atraumatic, normocephalic. Hears conversational speech. No nasal drainage. RESPIRATORY: Non-labored respirations and equal bilateral excursions. CARDIOVASCULAR: Palpable 2+ radial pulses. ABDOMEN: Nontender. MUSCULOSKELETAL: No gross deformity of the lower extremities noted. No clubbing. No cyanosis. SKIN: Good skin turgor. Well perfused. NEUROLOGIC: Cranial nerves II through XII grossly intact. No focal or lateralizing signs. PSYCH: Appropriate affect. Alert and oriented to person, place and time. CLINICAL LABS: Reviewed. Hemoglobin trending upwards 7.3-7.8 yesterday. WBC normal, yesterday PATHOLOGY: Rectal adenocarcinoma ASSESSMENT: 1. Rectal bleeding due to rectal adenocarcinoma 2. Abnormal CT scan for rectal cancer 3. Morbid obesity excess calories, BMI 40.7 4. [employer]ology 5. Family history of colon cancer grandmother, mother 6. Anemia due to chronic blood loss PLAN: 1. Agree with transfer to [facility] to continue care under o bservation of Jehovah witness senior energy consultant. 2. For patient's diarrhea, caution for high sorbitol foods which increases diarrhea as well as whey protein 3. May benefit from radiation oncology to control bleeding otherwise staging still in progress Dictation was produced using [employer] dictation software. Please excuse any grammatical, word or spelling errors. Objective - Vital Signs Vital signs: Vital Signs Temp 97.9 F 10/27/24 06:59 Pulse 78 10/27/24 06:59 Resp 20 10/27/24 06:59 BP 134/69 10/27/24 06:59 Pulse Ox 94 L 10/27/24 06:59 FiO2 Intake & Output 10/26/24 10/27/24 10/27/24 18:59 06:59 18:59 Intake Total 360 Balance 360 Weight 117.934 kg Intake: Oral 360 Other: Voiding Method Toilet Toilet # Voids 4 3 # Bowel Movements 6 2 - Labs CBC & Chem 7: 10/26/24 06:12 10/25/24 02:41 Labs: Abnormal Lab Results - Last 24 Hours (Table) 10/26/24 10/26/24 Range/Units 06:12 17:10 RBC 3.33 L (4.10-5.20) X 10*6/uL Hgb 7.8 L (12.0-15.0) g/dL Hct 27.0 L (37.2-46.3) % MCH 23.4 L (27.0-32.0) pg MCHC 28.9 L (32.0-37.0) g/dL RDW 23.9 H (11.5-14.5) % Plt Count 629 H (140-440) X 10*3/uL MPV 8.2 L (9.5-12.2) FL Immature Gran # 0.06 H (0.00-0.04) X 10*3/uL NRBC/100 WBC Diff 0.04 H (0.00-0.01) X 10*3/uL POC Glucose (mg/dL) 112 H (70-110) mg/dL
[2024-10-27 12:10] LABS: Glucose,Whole Blood 89 mg/dL (70-110)
--- NOTE | 2024-10-27 13:19 | P.PN ---
Subjective Progress Note Date: 10/27/24 Principal diagnosis: Rectal bleeding Acute on chronic blood loss anemia Rectal adenocarcinoma, patient is being considered for palliative XRT Left pleural density posterior basal likely atelectasis versus small mass 1.2/1.9 cm in size along with 0.8 cm nodule PET/CT as outpatient as recommended by oncology Morbid obesity Patient is [employer] October 27, 2024, patient seen eval examined, recommendation from oncology as well as radiation oncology noted patient is being considered for palliative radiation therapy she is awake and alert Due to the fact that patient has developed weakness decline blood transfusion and blood product Objective - Vital Signs Vital signs: Vital Signs Temp 97.9 F 10/27/24 06:59 Pulse 76 10/27/24 13:05 Resp 20 10/27/24 06:59 BP 134/69 10/27/24 06:59 Pulse Ox 94 L 10/27/24 06:59 FiO2 Intake & Output 10/26/24 10/27/24 10/27/24 18:59 06:59 18:59 Intake Total 360 Balance 360 Weight 117.934 kg Intake: Oral 360 Other: Voiding Method Toilet Toilet # Voids 4 3 # Bowel Movements 6 2 - Exam CONSTITUTIONAL: Well developed and in no acute distress. EYES: Conjuctivae without sclera icterus. Extraocular movements grossly intact. HEAD, EARS, NOSE, THROAT: Moist buccal mucosa. Head is atraumatic, normocephalic. Hears conversational speech. No nasal drainage. RESPIRATORY: Non-labored respirations and equal bilateral excursions. CARDIOVASCULAR: Palpable 2+ radial pulses. ABDOMEN: Nontender. MUSCULOSKELETAL: No gross deformity of the lower extremities noted. No clubbing. No cyanosis. SKIN: Good skin turgor. Well perfused. NEUROLOGIC: Cranial nerves II through XII grossly intact. No focal or lateralizing signs. PSYCH: Appropriate affect. Alert and oriented to person, place and kena - Labs CBC & Chem 7: 10/26/24 06:12 10/25/24 02:41 Labs: Abnormal Lab Results - Last 24 Hours (Table) 10/26/24 Range/Units 17:10 POC Glucose (mg/dL) 112 H (70-110) mg/dL Assessment and Plan Assessment: Acute on chronic blood loss anemia Rectal bleeding Rectal adenocarcinoma Morbid obesity GOR witness Pulmonary nodules Plan: Noted appreciated recommendation from general surgery hematology oncology radiation oncology patient is being planned for XRT, pulmonary nodules to be evaluated on outpatient basis with PET/CT Time with Patient: Greater than 30
[2024-10-27 16:09] VITALS: BP 117/65; PULSE 84; RESP 18
[2024-10-27 16:42] LABS: Glucose,Whole Blood 112 mg/dL (70-110)
== END 2024-10-27 20:34 | disposition home or self-care (01) | DRG 375 ==
LOC: EC 10:30 → 5NMEDONC 14:13 → 4SSUR 19:34
PROVIDERS: ADMIT Family Medicine; ATTEND Family Medicine
PROC: 0DBP8ZX Excision of Rectum, Via Natural or Artificial Opening Endoscopic, Diagnostic (ICD-10-PCS; 2024-10-18)
PROC: 0DJ08ZZ Inspection of Upper Intestinal Tract, Via Natural or Artificial Opening Endoscopic (ICD-10-PCS; principal; 2024-10-18 11:15)
PROC: 0DBP7ZX Excision of Rectum, Via Natural or Artificial Opening, Diagnostic (ICD-10-PCS; 2024-10-23)
DX: C20 Malignant neoplasm of rectum (principal); D62 Acute posthemorrhagic anemia; K22.10 Ulcer of esophagus without bleeding; E66.01 Morbid (severe) obesity due to excess calories; D75.839 Thrombocytosis, unspecified; E11.9 Type 2 diabetes mellitus without complications; J44.89 Other specified chronic obstructive pulmonary disease; F32.A Depression, unspecified; I10 Essential (primary) hypertension; Z68.41 Body mass index [BMI] 40.0-44.9, adult; K57.30 Diverticulosis of large intestine without perforation or abscess without bleeding; K64.8 Other hemorrhoids; F41.1 Generalized anxiety disorder; G47.33 Obstructive sleep apnea (adult) (pediatric); R59.0 Localized enlarged lymph nodes; N28.1 Cyst of kidney, acquired; Z53.1 Procedure and treatment not carried out because of patient's decision for reasons of belief and group pressure; M79.7 Fibromyalgia; K62.4 Stenosis of anus and rectum; K64.4 Residual hemorrhoidal skin tags; Z91.198 Patient's noncompliance with other medical treatment and regimen for other reason; Z79.1 Long term (current) use of non-steroidal anti-inflammatories (NSAID); Z90.49 Acquired absence of other specified parts of digestive tract; Z86.0100 Personal history of colon polyps, unspecified; Z79.899 Other long term (current) drug therapy; Z80.7 Family history of other malignant neoplasms of lymphoid, hematopoietic and related tissues; Z80.0 Family history of malignant neoplasm of digestive organs
CPT/HCPCS: 36415; 43235; 45385; 71260; 74177; 80048; 80053; 81001; 82150; 82272; 83605; 83690; 84132; 85025; 85027; 86850; 86900; 86901; 87077; 87086; 87186; 88305; 88341; 88342; 94640; 94760; 96361; 96374; 96375; 96376; 99285

== ENCOUNTER → 2024-11-09 | Outpatient (CLI) | payer MEDICARE ==
--- NOTE | 2024-11-11 08:18 | PE ---
EXAMINATION TYPE: PET CT fusion skull to thigh DATE OF EXAM: 11/09/2024 COMPARISON: CT abdomen and pelvis October 16, 2024 HISTORY: Rectal cancer. TECHNIQUE: Following the intravenous administration of mCi of F-18 FDG, whole body images are perfor med from the skull base to the midthigh. Images are reviewed on the computer in the coronal, axial, and sagittal planes. Reconstructed rotating images are created on independent workstation and review ed on the computer. A localization and attenuation correction CT is performed in conjunction with t he PET scan. Blood glucose level equals. SCAN: Initial Scan FINDINGS: SKULL BASE AND NECK: No area of abnormal hypermetabolic uptake. CHEST, MEDIASTINUM, AND HILAR REGION: No areas of abnormal hypermetabolic uptake ABDOMEN AND PELVIS: Severe wall thickening and/or mass in the rectum with abnormal hypermetabolic upt cheryl identified. MaxSUV is 44.0 on axial image 213. There is likely involvement of extension into the distal sigmoid colon. There is adjacent abnormal hypermetabolic 4 to 5 mm lymph node in the left pel vis axial image 215, max SUV is 4.89. There is an 8 mm posterior presacral pelvic lymph node axial im age 210, max SUV is 3.79. There is prominent left groin lymph node axial image 232 measuring 1.8 x 0. 9 cm, Max SUV is 5.13. No areas of abnormal hypermetabolic uptake in the abdomen. Normal excretion is seen. OSSEOUS STRUCTURES: No area of abnormal hypermetabolic uptake. OTHER CT: Bilateral aphakia is seen. Subcentimeter low dense left thyroid nodule. Elevated right syed diaphragm. Dependent gallstones and gallbladder with distended margins. Extensive surgical change to bowel loops in the lower abdomen and central upper pelvis. Scattered small bilateral pelvic phleboliths are seen . IMPRESSION: Large rectal mass or neoplasm redemonstrated. Some small pelvic lymph node involvement is difficult to exclude. No distal metastatic disease. [facility], , 11/11/2024 8:15 AM
== END | disposition home or self-care (01) ==
LOC: RADPETMAIN 12:32
PROVIDERS: ATTEND Internal Medicine Hematology & Oncology
DX: C20 Malignant neoplasm of rectum (principal)
CPT/HCPCS: 78815; A9552

== ENCOUNTER 2024-12-21 20:15 | Inpatient (IN) | payer MEDICARE ==
--- NOTE | 2024-12-21 22:12 | ED ---
General Adult HPI - General Chief complaint: Nausea/Vomiting/Diarrhea Stated complaint: no appetite Time Seen by Provider: 12/21/24 21:10 Source: patient Mode of arrival: ambulatory Limitations: no limitations - History of Present Illness Initial comments: Patient is a 74-year-old female a past medical history of rectal cancer presenting today for nausea. Patient states that she has had worsening nausea over the last few weeks. She was originally able to keep down Ensure protein drinks however now feels she can only keep down water and cranberry juice. When she tries to drink Ensure or eat something she becomes very nauseous. She does not have any difficulty swallowing or upper abdominal pain when this happens. Denies episodes of emesis. Has chronic diarrhea. Yesterday she did have a small amount of bright red blood in her stool. She this is not altogether abnormal for her. When she has that she was told to take TXA tablets which she did. She has not had any further episodes of bloody stools. She endorses 4 days of associated mild chest pressure, intermittent shortness of breath and mild left-sided headache. Denies dizziness, focal numbness or weakness. Denies new lower extremity swelling. Denies cough or hemoptysis. Denies fevers or chills. Patient endorses lower abdominal pressure but she feels like it is above her vagina and rectum. It worsens with deep breathing. She takes oxycodone and morphine at home without relief of her pain. When she was admitted previously for evaluation of her rectal cancer she was transferred down to [facility] in [place]. She was seen at [facility] and tried to find an apartment so she could live near there and get to doctors appointments however she was unable to afford it so transitioned her care here at [facility] and sees Dr. Gonzalez. - Related Data Home Medications Medication Instructions Recorded Confirmed DULoxetine HCL [Cymbalta] 60 mg PO DAILY 11/04/23 12/22/24 traZODone HCL [Desyrel] 100 mg PO HS 11/04/23 12/22/24 Loratadine 10 mg PO DAILY 10/04/24 12/22/24 Montelukast [Singulair] 10 mg PO DAILY 10/04/24 12/22/24 Gabapentin [Neurontin] 300 mg PO BID 10/16/24 12/22/24 Potassium Chloride [Klor-Con 8] 8 meq PO DAILY 10/16/24 12/22/24 Capecitabine 500mg Tablet 1 dose PO DIRECTED 12/22/24 12/22/24 Garlic Oil 2mg Capsule 1 cap PO DAILY 12/22/24 12/22/24 Losartan/Hydrochlorothiazide 1 tab PO DAILY 12/22/24 12/22/24 [Hyzaar 100-25 Tablet] Morphine Sulfate ER [Ms Contin] 15 mg PO Q12HR 12/22/24 12/22/24 hydrOXYzine pamoate [Vistaril] 25 mg PO BID 12/22/24 12/22/24 oxyCODONE-APAP 10-325MG [Percocet 1 tab PO QID PRN 12/22/24 12/22/24 10-325 mg] Allergies Allergy/AdvReac Type Severity Reaction Status Date / Time fluticasone furoate Allergy "Respiratory Verified 12/21/24 20:22 [From Breo Ellipta] Issues" nickel [Nickel] Allergy Rash/Hives Verified 12/21/24 20:22 vilanterol Allergy "Respiratory Verified 12/21/24 20:22 [From Breo Ellipta] Issues" Review of Systems ROS Statement: Those systems with pertinent positive or pertinent negative responses have been documented in the HPI. ROS Other: All systems not noted in ROS Statement are negative. Past Medical History Past Medical History: Asthma, Diabetes Mellitus, Fibromyalgia, Hypertension, Osteoarthritis (OA), Sleep Apnea/CPAP/BIPAP Additional Past Medical History / Comment(s): IBS, HX POLYPS, STATES NOT CURRENTLY TAKING ANY MEDS FOR DIABETES BUT HAS IN PAST, HAS HEEL SPUR ON LEFT FOOT, CURRENTLY USING A CRUTCH History of Any Multi-Drug Resistant Organisms: None Reported Past Surgical History: Bowel Resection, Hysterectomy, Joint Replacement, Orthopedic Surgery Additional Past Surgical History / Comment(s): COLECTOMY for polyps, LEFT KNEE REPLACEMENT, RT ROTATOR CUFF Past Anesthesia/Blood Transfusion Reactions: No Reported Reaction Past Psychological History: Anxiety, Depression Smoking Status: Never smoker Past Alcohol Use History: None Reported Past Drug Use History: None Reported - Past Family History Father Family Medical History: Cancer Additional Family Medical History / Comment(s): Father at age 79 from lymphoma. Mother Family Medical History: Cancer Additional Family Medical History / Comment(s): Mother at age 82 from colon cancer. Brother(s) Additional Family Medical History / Comment(s): Patient has 1 brother with no major medical problems. Patient does not have any sisters. She has one son that is healthy. General Exam - General Exam Comments Initial Comments: PE: CONSTITUTIONAL: No apparent distress, well appearing SKIN: Warm, dry, no jaundice, hives or petechiae EYES: Pupils are equally round, extraocular movements intact without nystagmus, clear conjunctiva, non-icteric sclera HENT: Normocephalic, atraumatic, moist mucus membranes, oropharynx clear without exudates NECK: , Full range of motion, normal appearance PULMONARY: Clear to auscultation without wheezes, rhonchi, or rales, normal excursion, no accessory muscle use and no stridor CARDIOVASCULAR: Regular rate, rhythm, normal S1 and S2. No appreciated murmurs, rubs or gallops. Strong radial pulses with intact distal perfusion.1+ nonpitting edema up to ankles GASTROINTESTINAL: Soft, active bowel sounds throughout, non-tender, non- distended, no palpable masses, no rebound or guarding. No hepatosplenomegaly GENITOURINARY: MUSCULOSKELETAL: Extremities have no gross deformity, redness, or swelling. No calf swelling, 1+ bilateral ankle edema NEUROLOGIC:_a/o x 3, GCS 15, normal mentation and speech. Moves all extremities x 4 without motor or sensory deficit PSYCHIATRIC:_normal mood and affect, thought process is clear and linear Limitations: no limitations Course Vital Signs 12/21/24 12/22/24 12/22/24 20:16 02:29 03:06 Temperature 98.3 F Pulse Rate 97 66 64 Pulse Rate [ Pulse Oximetery ] Respiratory 20 17 16 Rate Blood Pressure 127/62 115/54 Blood Pressure [Left Arm] O2 Sat by Pulse 99 97 95 Oximetry 12/22/24 12/22/24 12/22/24 06:00 09:00 11:00 Temperature 98.0 F Pulse Rate 66 83 Pulse Rate [ Pulse Oximetery ] Respiratory 17 18 19 Rate Blood Pressure 128/54 Blood Pressure [Left Arm] O2 Sat by Pulse 94 L 98 Oximetry 12/22/24 12/22/24 12/22/24 13:10 15:42 16:27 Temperature 98.1 F Pulse Rate 99 77 Pulse Rate [ Pulse Oximetery ] Respiratory 20 17 18 Rate Blood Pressure 131/72 135/64 Blood Pressure [Left Arm] O2 Sat by Pulse 97 99 Oximetry 12/22/24 12/22/24 12/22/24 17:11 18:41 21:05 Temperature Pulse Rate 94 78 81 Pulse Rate [ Pulse Oximetery ] Respiratory 16 17 18 Rate Blood Pressure 92/78 133/75 Blood Pressure [Left Arm] O2 Sat by Pulse 96 99 97 Oximetry 12/23/24 12/23/24 12/23/24 02:58 06:29 07:40 Temperature 98.1 F 97.9 F Pulse Rate 76 70 Pulse Rate [ 74 Pulse Oximetery ] Respiratory 18 18 20 Rate Blood Pressure 140/68 126/54 Blood Pressure 122/74 [Left Arm] O2 Sat by Pulse 99 98 98 Oximetry 12/23/24 07:43 Temperature Pulse Rate Pulse Rate [ Pulse Oximetery ] Respiratory 17 Rate Blood Pressure Blood Pressure [Left Arm] O2 Sat by Pulse Oximetry EKG Findings - EKG Comments: EKG Findings:: Sinus rhythm, rate 65 bpm, intervals within acceptable limits, no significant ST elevations or depressions, no arrhythmia Medical Decision Making - Medical Decision Making Was pt. sent in by a medical professional or institution (, PA, ASSISTANT FOOTBALL COACH, urgent care, hospital, or long term...) When possible be specific @ -No Did you speak to anyone other than the patient for history (EMS, parent, family, police, friend...)? What history was obtained from this source @ -No Did you review nursing and triage notes (agree or disagree)? Why? @ -I reviewed nursing and triage notes Were old charts reviewed (outside hosp., previous admission, EMS record, old EKG, old radiological studies, urgent care reports/EKG's, long term records)? Report findings @ -Medical records reviewed-I reviewed discharge summary from 10/27/2024, patient had presented for rectal bleeding and acute on chronic blood loss anemia from rectal carcinoma, oncology was consulted due to severe anemia take as she cannot get blood transfusions being due to being out of his weakness. She was transferred to [facility] for further treatment of rectal carcinoma at that time. Differential Diagnosis (chest pain, altered mental status, abdominal pain women, abdominal pain men, vaginal bleeding, weakness, fever, dyspnea, syncope, headache, dizziness, GI bleed, back pain, seizure, CVA, palpatations, mental health, musculoskeletal)? @ -Differential Chest Pain: Stable Angina, Unstable Angina, STEMI, NSTEMI Aortic Dissection, pericarditis, pleurisy, chostochondirits, Pneumothorax, Musculoskeletal, Esophageal Spasm GERD, Cholecystitis, Pancreatitis, Zoster, this is not meant to be an all- inclusive list. Differential Abdominal Pain Women: Appendicitis, Cholecystitis, diverticulosis, ischemic bowel, pancreatitis, hepatitis, UTI, gastroenteritis, AAA, incarcerated hernia, bowel obstruction, constipation, inflammatory bowel, hepatitis, peptic ulcer disease, splenic infarction, perforated viscus, vulvitis, ovarian torsion, PID, kidney stone, placenta abruption, this is not meant to be an all-inclusive list EKG interpreted by me (3pts min.). @ -As above X-rays interpreted by me (1pt min.). @ I see no obvious consolidations or pleural effusions CT interpreted by me (1pt min.). @ -Right LL consolidation U/S interpreted by me (1pt. min.). @ -None done What testing was considered but not performed or refused? (CT, X-rays, U/S, labs)? Why? @CT abdomen/pelvis was considered however pt's pain and location of pain similar to where it has been since recent admission here, ongoing since diagnosis of rectal CA, soft andnontender abdomen on exam What meds were considered but not given or refused? Why? @ -None Did you discuss the management of the patient with other professionals (professionals i.e. , PA, ASSISTANT FOOTBALL COACH, lab, RT, psych nurse, director social service, floor tiling professional, teacher, homicide squad commanding officer, director of casework services)? Give summary @ -No Was smoking cessation discussed for >3mins.? @ -No Was critical care preformed (if so, how long)? @ -No Were there social determinants of health that impacted care today? How? (Homelessness, low income, unemployed, alcoholism, drug addiction, transportation, low edu. Level, literacy, decrease access to med. care, nursing home, rehab)? @ -Decreased access to medical care Was there de-escalation of care discussed even if they declined (Discuss DNR or withdrawal of care, Hospice)? Yes I did discuss hospice with the patient which she has considered but was not ready to commit to yet What co-morbidities impacted this encounter? (DM, HTN, Smoking, COPD, CAD, Cancer, CVA, ARF, Chemo, Hep., AIDS, mental health diagnosis, sleep apnea, morbid obesity)? @Rectal carcinoma diabetes hypertension Was patient admitted / discharged? Hospital course, mention meds given and route, prescriptions, significant lab abnormalities, going to OR and other pertinent info. @ Admission- Patient is a 74-year-old female history of rectal carcinoma presenting today for nausea. States she has not eaten anything for 2 weeks. Patient was initially seen and assessed in the waiting room due to ER overflow capacity. Obtained patient's permission to discuss her care in the waiting room. Vital signs on arrival are within acceptable limits. Patient also noted chest pressure while discussing review of systems. For this reason we will obtain comprehensive labs, magnesium level, troponin, BNP, D-dimer given history of cancer, chest x- ray and administer IV fluids, nausea medications and pain medications. Chest x-ray significant for possible mild pneumonia. Pt denied cough and fevers so will hold on antibiotics at this point. D-dimer 0.99. CT PE study ordered. Labs are otherwise overall reassuring. Troponin is undetectable. On reassessment patient remains nauseous and 6 out of 10 pain. She is able to keep some clear fluids down. Patient initially deferred CT scan due to anxiety however is willing to have a CT scan with anxiety medication. Patient received Reglan, Valium and Dilaudid. Patient does live alone and has difficulty making it to her appointments, is having difficulty managing her care. I do anticipate admission for case management consult to help coordinate patient's home care, oncology consultation to help manage patient's persistent nausea and pain and PT/OT evaluation. Case was discussed with Dr. Arriaga, who kindly accepts pt for admission. CT PE study reported that contrast was not administered in a way to be able to evaluate a PE, did note pneumonia. Given persistent findings of PNA on CT and pt's intermittent shortness of breath, at this point will treat for PNA- Added Rocephin and azithromycin. Undiagnosed new problem with uncertain prognosis? @ -No Drug Therapy requiring intensive monitoring for toxicity (Heparin, Nitro, Insulin, Cardizem)? @ -No Were any procedures done? @ -No Diagnosis/symptom? @Intractable nausea and pain, community acquired pneumonia Acute, or Chronic, or Acute on Chronic? @ acute Uncomplicated (without systemic symptoms) or Complicated (systemic symptoms)? complicated Side effects of treatment? @ -No Exacerbation, Progression, or Severe Exacerbation? @ -No Poses a threat to life or bodily function? How? (Chest pain, [place], [place], pneumonia, PE, COPD, DKA, ARF, appy, cholecystitis, CVA, Diverticulitis, Homicidal, Suicid al, threat to staff... and all critical care pts) @Potentially, if left untreated - Lab Data Result diagrams: 12/26/24 03:16 12/25/24 02:29 Lab Results 12/21/24 12/21/24 12/21/24 Range/Units 23:43 23:43 23:43 WBC 10.15 H (4.50-10.00) 10*3/uL RBC 3.82 L (4.10-5.20) 10*6/uL Hgb 9.7 L D (12.0-15.0) g/dL Hct 30.3 L (37.2-46.3) % MCV 79.3 L (80.0-97.0) fL MCH 25.4 L (27.0-32.0) pg MCHC 32.0 (32.0-37.0) g/dL Plt Count 525 H (140-440) 10*3/uL MPV 8.1 L (9.5-12.2) fL Immature Gran % (Auto) 0.3 % Neutrophils % 78.3 % Lymphocytes % 12.1 % Monocytes % 8.7 % Eosinophils % 0.2 % Basophils % 0.4 % Immature Gran # 0.03 (0.00-0.04) 10*3/uL Neutrophils # 7.95 H (1.80-7.70) 10*3/uL Lymphocytes # 1.23 (0.90-5.00) 10*3/uL Monocytes # 0.88 (0.20-1.00) 10*3/uL Eosinophils # 0.02 L (0.04-0.35) 10*3/uL Basophils # 0.04 (0.00-0.10) 10*3/uL PT 12.2 (10.0-12.5) sec INR 1.1 (<1.2) APTT 29.3 (22.0-30.0) sec D-Dimer 0.99 H (<0.60) mg/L FEU Sodium 133 L (137-145) mmol/L Potassium 4.0 (3.5-5.1) mmol/L Chloride 98 (98-107) mmol/L Carbon Dioxide 28 (22-30) mmol/L Anion Gap 7 mmol/L BUN 9 (7-17) mg/dL Creatinine 0.60 (0.52-1.04) mg/dL Est GFR (CKD-EPI)AfAm >90 (>60 ml/min/1.73 sqM) Est GFR (CKD-EPI)NonAf 90 (>60 ml/min/1.73 sqM) Glucose 95 (74-99) mg/dL Calcium 9.3 (8.4-10.2) mg/dL Magnesium 2.1 (1.6-2.3) mg/dL Total Bilirubin 0.4 (0.2-1.3) mg/dL AST 16 (14-36) U/L ALT 7 (4-34) U/L Alkaline Phosphatase 93 (38-126) U/L Troponin I (0.000-0.034) ng/mL NT-Pro-B Natriuret Pep 365 pg/mL Total Protein 6.4 (6.3-8.2) g/dL Albumin 3.1 L (3.5-5.0) g/dL Lipase <10 L (23-300) U/L 12/21/24 Range/Units 23:43 WBC (4.50-10.00) 10*3/uL RBC (4.10-5.20) 10*6/uL Hgb (12.0-15.0) g/dL Hct (37.2-46.3) % MCV (80.0-97.0) fL MCH (27.0-32.0) pg MCHC (32.0-37.0) g/dL Plt Count (140-440) 10*3/uL MPV (9.5-12.2) fL Immature Gran % (Auto) % Neutrophils % % Lymphocytes % % Monocytes % % Eosinophils % % Basophils % % Immature Gran # (0.00-0.04) 10*3/uL Neutrophils # (1.80-7.70) 10*3/uL Lymphocytes # (0.90-5.00) 10*3/uL Monocytes # (0.20-1.00) 10*3/uL Eosinophils # (0.04-0.35) 10*3/uL Basophils # (0.00-0.10) 10*3/uL PT (10.0-12.5) sec INR (<1.2) APTT (22.0-30.0) sec D-Dimer (<0.60) mg/L FEU Sodium (137-145) mmol/L Potassium (3.5-5.1) mmol/L Chloride (98-107) mmol/L Carbon Dioxide (22-30) mmol/L Anion Gap mmol/L BUN (7-17) mg/dL Creatinine (0.52-1.04) mg/dL Est GFR (CKD-EPI)AfAm (>60 ml/min/1.73 sqM) Est GFR (CKD-EPI)NonAf (>60 ml/min/1.73 sqM) Glucose (74-99) mg/dL Calcium (8.4-10.2) mg/dL Magnesium (1.6-2.3) mg/dL Total Bilirubin (0.2-1.3) mg/dL AST (14-36) U/L ALT (4-34) U/L Alkaline Phosphatase (38-126) U/L Troponin I <0.012 (0.000-0.034) ng/mL NT-Pro-B Natriuret Pep pg/mL Total Protein (6.3-8.2) g/dL Albumin (3.5-5.0) g/dL Lipase (23-300) U/L Disposition Clinical Impression: Pneumonia, Intractable pain, Intractable nausea Disposition: ADMITTED IP TO THIS [facility] Condition: Stable
[2024-12-21] MEDS: HYDROmorphone 1 MG/ML 1 ML SYRINGE IVP STA (23:52)
[2024-12-21] MEDS: ASPIRIN 81 MG PO STA (23:52)
[2024-12-21] MEDS: ONDANSETRON 4 MG/2 ML VIAL IVP STA (23:52)
[2024-12-21] MEDS: SODIUM CHLORIDE 0.9% 1,000 ML IV STA (23:52)
--- NOTE | 2024-12-21 23:52 | XR ---
EXAM: XR Chest, 2 Views CLINICAL HISTORY: ITS.REASON XR Reason: shortness of breath TECHNIQUE: Frontal and lateral views of the chest. COMPARISON: No relevant prior studies available. FINDINGS: Lungs: Mild infrahilar opacities (and retrocardiac), correlate for mild pneumonia. Pleural space: Unremarkable. No pneumothorax. Heart: Unremarkable. No cardiomegaly. Mediastinum: Unremarkable. Bones/joints: Unremarkable. Upper abdomen: Elevated right hemidiaphragm. IMPRESSION: Mild infrahilar opacities (and retrocardiac), correlate for mild pneumonia.
[2024-12-22 00:51] LABS: Basophils # (A) 0.04 10*3/uL (0.00-0.10); Basophils % (A) 0.4 %; Eosinophils # (A) 0.02 10*3/uL (0.04-0.35); Eosinophils % (A) 0.2 %; HCT 30.3 % (37.2-46.3); Lymphocytes # (A) 1.23 10*3/uL (0.90-5.00); Lymphocytes % (A) 12.1 %; MCH 25.4 pg (27.0-32.0); MCV 79.3 fL (80.0-97.0); Mean Platelet Volume 8.1 fL (9.5-12.2); Monocytes # (A) 0.88 10*3/uL (0.20-1.00); Monocytes % (A) 8.7 %; Neutrophils # (A) 7.95 10*3/uL (1.80-7.70); Neutrophils % (A) 78.3 %; Platelet Count 525 10*3/uL (140-440); RBC 3.82 10*6/uL (4.10-5.20); RDW 17.5 % (11.5-14.5); WBC 10.15 10*3/uL (4.50-10.00)
[2024-12-22 01:06] LABS: ALT 7 U/L (4-34); AST 16 U/L (14-36); African American GFR (CKD) >90 (>60 ml/min/1.73 sqM); Albumin 3.1 g/dL (3.5-5.0); Alkaline Phosphatase 93 U/L (38-126); Anion Gap 7 mmol/L; Blood Urea Nitrogen 9 mg/dL (7-17); Calcium 9.3 mg/dL (8.4-10.2); Carbon Dioxide 28 mmol/L (22-30); Chloride 98 mmol/L (98-107); Glucose 95 mg/dL (74-99); Lipase <10 U/L (23-300); Magnesium 2.1 mg/dL (1.6-2.3); Non-African American GFR(CKD) 90 (>60 ml/min/1.73 sqM); Sodium 133 mmol/L (137-145); Total Bilirubin 0.4 mg/dL (0.2-1.3); Total Protein 6.4 g/dL (6.3-8.2)
[2024-12-22 01:14] LABS: NT-Pro-B-Type Natriuretic Pept 365 pg/mL
[2024-12-22 01:19] LABS: HGB 9.7 g/dL (12.0-15.0)
[2024-12-22 01:25] LABS: INR 1.1 (<1.2); Partial Thromboplastin Time 29.3 sec (22.0-30.0); Prothrombin Time 12.2 sec (10.0-12.5)
[2024-12-22] MEDS: METOCLOPRAMIDE 5 MG TAB PO STA (05:31)
[2024-12-22] MEDS: diazePAM 5 MG TAB PO STA (05:31)
[2024-12-22] MEDS: HYDROmorphone 1 MG/ML 1 ML SYRINGE IVP PRN ×2 (05:35→16:29)
--- NOTE | 2024-12-22 06:43 | CT ---
EXAM: CT Angiography Chest With Intravenous Contrast CLINICAL HISTORY: ITS.REASON CT Reason: CA, REMI, elevated dimer TECHNIQUE: Axial computed tomographic angiography images of the chest with intravenous contrast. CTDI is 23.4 mGy and DLP is 546.9 mGy-cm. This CT exam was performed using one or more of the following dose reduction techniques: automated exposure control, adjustment of the mA and/or kV according to patient size, and/or use of iterative reconstruction technique. MIP reconstructed images were created and reviewed. COMPARISON: CT dated 10/26/2024. FINDINGS: Pulmonary arteries: Incorrect phase of imaging to evaluate for pulmonary artery embolism. Aorta: Calcifications are seen within a nondilated aorta. No evidence of aortic dissection. Lungs: Consolidative changes are seen within the right middle and right lower lobes. Pleural space: Unremarkable. No significant effusion. No pneumothorax. Heart: Coronary artery calcifications. Mild cardiac enlargement. No significant pericardial effusion. No evidence of RV dysfunction. Bones/joints: Degenerative changes are seen within the spine and shoulders. No acute fracture. No dislocation. Soft tissues: Unremarkable. Lymph nodes: Unremarkable. No enlarged lymph nodes. Liver: Hepatomegaly and hepatic steatosis. Kidneys and ureters: Bosniak type I bilateral renal cysts which do not require follow-up. IMPRESSION: 1. Right middle and right lower lobe pneumonia. 2. Incorrect phase of imaging to evaluate for pulmonary artery embolism.
[2024-12-22] MEDS ORDERED: PNEUMONIA PROTOCOL UTILIZED 1 EACH MISC PO PRN (07:32)
[2024-12-22] MEDS ORDERED: PROCHLORPERAZINE 5 MG TAB PO PRN (07:35)
[2024-12-22] MEDS ORDERED: ACETAMINOPHEN TAB 325 MG TAB PO PRN (07:35)
[2024-12-22] MEDS ORDERED: ONDANSETRON 4 MG/2 ML VIAL IVP PRN (07:35)
[2024-12-22] MEDS ORDERED: NALOXONE 0.4 MG/ML 1 ML VIAL IV PRN (07:35)
[2024-12-22] MEDS ORDERED: DEXTROSE 50% SYRINGE 50 ML IVP PRN ×2 (08:48)
[2024-12-22] MEDS: FAMOTIDINE 20 MG TAB PO SCH (08:55)
[2024-12-22] MEDS: cefTRIAXone IN SWFI 1,000 MG/10 ML SYRINGE IVP STA (08:55)
[2024-12-22] MEDS: AZITHROMYCIN 500 MG in SODIUM CHLORIDE 0.9% 250 ML IVPB STA (08:56)
[2024-12-22] MEDS: SODIUM CHLORIDE 0.9% 1,000 ML IV SCH (09:05)
[2024-12-22] MEDS: HYDROmorphone 0.5 MG/0.5 ML SYRINGE IVP PRN (09:06)
[2024-12-22 09:26] LABS: Glucose,Whole Blood 63 mg/dL (70-110)
[2024-12-22 10:10] LABS: Appearance,Urine Clear (Clear); Bilirubin,Urine Negative (Negative); Blood,Urine Negative (Negative); Color,Urine Light Yellow; Glucose,Urine (UA) Negative (Negative); Ketones,Urine Negative (Negative); Leukocyte Esterase,Urine Large (Negative); Mucus,Urine Rare /hpf; Nitrite,Urine Negative (Negative); Protein,Urine Negative (Negative); RBC,Urine 2 /hpf (0-5); Specific Gravity,Urine 1.025 (1.001-1.035); Squamous Epithelial Cell,Urine <1 /hpf (0-4); Urobilinogen,Urine <2.0 mg/dL (<2.0); WBC,Urine 22 /hpf (0-5)
--- NOTE | 2024-12-22 10:48 | P.HPIM ---
History of Present Illness H&P Date: 12/22/24 Patient is a 74-year-old female with past medical history of rectal adenocarcinoma, chronic anemia secondary to bleeding hemorrhoids and rectal mass,, fibromyalgia, IBS, DM type II, HTN, who presented to the ER on 12/21/2024 for intractable nausea and rectal pain. Patient has been dealing with significantly decreased oral intake secondary to nausea, she was previously able to keep down Ensure protein shakes however tolerated water and juices. Denies dysphagia, vomiting. She does have chronic diarrhea, sometimes reports BRB WA which is not unusual for her and she was previously instructed to take tranexamic acid. Patient complains of severe rectal pain, at home she is on oxycodone and morphine without significant relief. Patient will be admitted for intractable nausea, pain, community-acquired pneumonia. Started on azithromycin and ceftriaxone SOT 12/22, for pain control patient is on IV Dilaudid, Zofran ordered for nausea, oncology consulted, PT OT, social work on board. On admission afebrile, heart rate in 60s, BP 115/54, SpO2 94% on room air. Blood work revealed WBC of 10.1, hemoglobin 9.7, improved from October 7.8. Platelet count persistently elevated 525, sodium 133, normal bicarb, potassium, creatinine, normal liver enzymes, BNP 365, negative lipase, troponin negative. EKG showed sinus rhythm, no ST elevation, QTc 405, CTA chest showed right middle and right lower lobe pneumonia, in the correct phase of imaging to evaluate for PE. Pertinent positives and negatives as discussed in HPI, a complete review of systems was performed and all other systems are negative. Patient seen and examined at bedside. Vital signs reviewed General: Chronically ill-appearing, in distress from pain, obese Derm: warm, dry Head: atraumatic, normocephalic, symmetric Eyes: EOMI, no lid lag, anicteric sclera, pupils equal round reactive to light ENT: Nose and ears atraumatic Neck: No thyromegaly, supple Mouth: no lip lesion, mucus membranes moist Cardiovascular: S1S2 reg, no murmur, no edema Lungs: clear to auscultation bilateral, no rhonchi, no rales, no wheeze, no ac cessory muscle use Abdominal: soft, nontender to palpation, no guarding, no appreciable organomegaly Ext: no gross muscle atrophy, muscle strength muscle strength 5 out of 5 in all 4 extremities, no contractures Neuro: CN II-XII grossly intact Psych: Alert, oriented, appropriate affect Assessment/Plan: Intractable nausea Intractable rectal pain rectal adenocarcinoma chronic anemia secondary to bleeding hemorrhoids and rectal mass Thrombocytosis Hyponatremia likely due to decreased solute intake -Start gentle hydration with NS at 75 cc/h - Famotidine 20 mg p.o. twice daily -Oncology consulted -Zofran 4 mg IV every 8 hours as needed, Compazine 5 mg p.o. every 8 hours as needed -Pain control with Dilaudid 2 mg IV every 4 hours as needed for severe pain, 0.5 every 3 hours as needed for moderate pain Community-acquired pneumonia -Continue azithromycin 500 mg p.o. daily, ceftriaxone 2 g IV every 24 hours SOT 12/22 -CBC daily, follow-up on the renal Legionella, procalcitonin ordered and pending, sputum cultures ordered fibromyalgia IBS DM type II, proceed with Accu-Cheks, hypoglycemia precautions, SSI low intensity HTN - Med rec is pending The patient is admitted with an anticipated greater than 2 midnight stay as CODE STATUS: Full code, patient states her son would make decisions for her DVT prophylaxis: SCD Anticipated discharge date: TBD Anticipated discharge place: TBD A total of 40 minutes was spent on the care of this complex patient more than 50% of the time was spent in counseling and care coordination. Past Medical History Past Medical History: Asthma, Diabetes Mellitus, Fibromyalgia, Hypertension, Osteoarthritis (OA), Sleep Apnea/CPAP/BIPAP Additional Past Medical History / Comment(s): IBS, HX POLYPS, STATES NOT CURRENTLY TAKING ANY MEDS FOR DIABETES BUT HAS IN PAST, HAS HEEL SPUR ON LEFT FOOT, CURRENTLY USING A CRUTCH History of Any Multi-Drug Resistant Organisms: None Reported Past Surgical History: Bowel Resection, Hysterectomy, Joint Replacement, Orthopedic Surgery Additional Past Surgical History / Comment(s): COLECTOMY for polyps, LEFT KNEE REPLACEMENT, RT ROTATOR CUFF Past Anesthesia/Blood Transfusion Reactions: No Reported Reaction Past Psychological History: Anxiety, Depression Smoking Status: Never smoker Past Alcohol Use History: None Reported Past Drug Use History: None Reported - Past Family History Father Family Medical History: Cancer Additional Family Medical History / Comment(s): Father at age 79 from lymphoma. Mother Family Medical History: Cancer Additional Family Medical History / Comment(s): Mother at age 82 from colon cancer. Brother(s) Additional Family Medical History / Comment(s): Patient has 1 brother with no major medical problems. Patient does not have any sisters. She has one son that is healthy. Medications and Allergies Home Medications Medication Instructions Recorded Confirmed Type Albuterol Sulfate [Ventolin HFA] 2 puff INHALATION RT-Q6H PRN 11/04/23 10/16/24 History DULoxetine HCL [Cymbalta] 60 mg PO DAILY 11/04/23 10/16/24 History Meloxicam [Mobic] 7.5 mg PO DAILY PRN 11/04/23 10/16/24 History hydrOXYzine HCL [Atarax] 25 mg PO BID 11/04/23 10/16/24 History traZODone HCL [Desyrel] 100 mg PO HS 11/04/23 10/16/24 History Hydrocortisone Oint 1 applic TOPICAL BID PRN 10/04/24 10/16/24 History [Hydrocortisone 2.5% Oint] Loratadine 10 mg PO DAILY 10/04/24 10/16/24 History Montelukast [Singulair] 10 mg PO DAILY 10/04/24 10/16/24 History Gabapentin [Neurontin] 300 mg PO BID 10/16/24 10/16/24 History Multivitamins, Thera [Multivitamin 1 tab PO DAILY 10/16/24 10/16/24 History (formulary)] Potassium Chloride [Klor-Con 8] 8 meq PO DAILY 10/16/24 10/16/24 History Allergies Allergy/AdvReac Type Severity Reaction Status Date / Time fluticasone furoate Allergy "Respiratory Verified 12/21/24 20:22 [From Breo Ellipta] Issues" nickel [Nickel] Allergy Rash/Hives Verified 12/21/24 20:22 vilanterol Allergy "Respiratory Verified 12/21/24 20:22 [From Breo Ellipta] Issues" Physical Exam Vitals: Vital Signs Temp Pulse Resp BP Pulse Ox 12/22/24 06:00 66 17 94 L 12/22/24 03:06 64 16 115/54 95 12/22/24 02:29 66 17 97 12/21/24 20:16 98.3 F 97 20 127/62 99 Intake and Output 12/21/24 12/22/2412/22/25 22:59 06:59 14:59 Other: Weight 109.316 kg Results CBC & Chem 7: 12/21/24 23:43 12/21/24 23:43 Labs: Abnormal Lab Results - Last 24 Hours (Table) 12/21/24 12/21/24 12/21/24 Range/Units 23:43 23:43 23:43 WBC 10.15 H (4.50-10.00) 10*3/uL RBC 3.82 L (4.10-5.20) 10*6/uL Hgb 9.7 L D (12.0-15.0) g/dL Hct 30.3 L (37.2-46.3) % MCV 79.3 L (80.0-97.0) fL MCH 25.4 L (27.0-32.0) pg Plt Count 525 H (140-440) 10*3/uL MPV 8.1 L (9.5-12.2) fL Neutrophils # 7.95 H (1.80-7.70) 10*3/uL Eosinophils # 0.02 L (0.04-0.35) 10*3/uL D-Dimer 0.99 H (<0.60) mg/L FEU Sodium 133 L (137-145) mmol/L Albumin 3.1 L (3.5-5.0) g/dL Lipase <10 L (23-300) U/L
[2024-12-22 12:33] LABS: Glucose,Whole Blood 73 mg/dL (70-110)
[2024-12-22] MEDS: INSULIN LISPRO (HumaLOG) 100 UNIT/ML 10 mL VL SQ SCH (12:33)
[2024-12-22] MEDS: ALPRAZolam 0.25 MG TAB PO PRN (16:28)
[2024-12-22 17:05] LABS: Glucose,Whole Blood 77 mg/dL (70-110)
[2024-12-22] MEDS: MORPHINE SULFATE ER 30 MG TABLET PO SCH (21:08)
[2024-12-22] MEDS: MORPHINE SULFATE 4 MG/ML SYRINGE IVP PRN (22:08)
[2024-12-22 22:13] LABS: Glucose,Whole Blood 112 mg/dL (70-110)
[2024-12-23] MEDS: traZODone HCL 100 MG TAB PO SCH ×2 (05:13→22:03)
[2024-12-23 08:27] LABS: Basophils # (A) 0.03 10*3/uL (0.00-0.10); Basophils % (A) 0.4 %; Eosinophils # (A) 0.15 10*3/uL (0.04-0.35); Eosinophils % (A) 1.9 %; HCT 28.4 % (37.2-46.3); HGB 8.8 g/dL (12.0-15.0); Lymphocytes # (A) 1.84 10*3/uL (0.90-5.00); Lymphocytes % (A) 23.3 %; MCH 25.1 pg (27.0-32.0); MCV 81.1 fL (80.0-97.0); Mean Platelet Volume 8.2 fL (9.5-12.2); Monocytes # (A) 1.04 10*3/uL (0.20-1.00); Monocytes % (A) 13.2 %; Neutrophils # (A) 4.82 10*3/uL (1.80-7.70); Neutrophils % (A) 60.9 %; Platelet Count 476 10*3/uL (140-440); RDW 17.9 % (11.5-14.5)
[2024-12-23 08:34] LABS: African American GFR (CKD) >90 (>60 ml/min/1.73 sqM); Anion Gap 6 mmol/L; Blood Urea Nitrogen 6 mg/dL (7-17); Calcium 9.3 mg/dL (8.4-10.2); Carbon Dioxide 26 mmol/L (22-30); Chloride 103 mmol/L (98-107); Glucose 77 mg/dL (74-99); Non-African American GFR(CKD) >90 (>60 ml/min/1.73 sqM); Potassium 3.6 mmol/L (3.5-5.1); Sodium 135 mmol/L (137-145)
[2024-12-23] MEDS: LORazepam 1 MG/0.5 ML VIAL IV SCH (08:41)
[2024-12-23] MEDS: AZITHROMYCIN 500 MG TAB PO SCH (08:41)
[2024-12-23] MEDS: SODIUM FERRIC GLUCONAT-SUCROSE 125 MG in SODIUM CHLORIDE 0.9% 100 ML IVPB SCH (08:41)
--- NOTE | 2024-12-23 11:07 | P.CONS ---
History of Present Illness - Reason for Consult Consult date: 12/22/24 rectal cancer Requesting physician: Dee Dee Keen - Chief Complaint nausea, intractable pain - History of Present Illness Mrs. Yao is a 74-year-old female patient of Dr. Gonzalez, initially seen 08/10/2024, referred because of thrombocytosis found on labs in June 2024. Platelets were 627,000, hemoglobin 11.9, MCV 78. CBC in November 2023 all labs were normal. She had had a colonoscopy by Dr. Weldon in [place] 12/2023, multiple polyps were removed and a 2-year follow-up was recommended. She also had multiple large hemorrhoids. Patient reports significant rectal bleeding for a few years. Persistent, occasionally clots. She denied black or tarry stool. She has had about a 14 pound weight loss. She had a CT of the abdomen and pelvis at [place] 09/14/2024 with no revealing underlying cause for patient's thrombocytosis. Was felt to be reactive to iron deficiency. Patient was started on parenteral iron in the office as she could not tolerate oral iron due to stomach complaints and constipation. Patient was due to have banding of her hemorrhoids with gastroenterology but, her nurse advisor recommended that she have any procedures done in an acute setting as she is a [employer] and does not accept blood products. On admit patient hemoglobin was 8, microcytic, hypochromic, platelets 535,000, mildly elevated white blood cell count at 10.6, mostly neutrophils and immature granulocytes. CT of the abdomen and pelvis reports normal liver, spleen. Bilateral renal cysts are noted. Prominent thickening through the rectum with an enlarged some small lymph nodes noted, 1.3 perirectal lymph node anterior to the sacrum. During last admit in October 2024, she underwent endoscopy which showed a friable mass was found, concerning for malignancy. Biopsy showed fragments of villous adenoma with high grade dysplasia and features suggestive of superficial invasion. She had repeat colonoscopy which showed a large fungating mass,4 cm from anal verge,partillay obstructing,biopsy was positive for invasive adenocarcinoma,MSI-Stable. MRI rectum on 10/30/2024 showed distal rectal infiltrating mass up to 12 cm,infiltrating into proximal anal canal and metastatic mesoreactal fascia up to 1.5x2.5 cm and in left iliac chain up to 1.1x0.6 cm. She had a PET scan on 11/09/2024 which showed large rectal mass and small pelvic nodes. She was evaluated at [facility] and transferred care to [place],closer to where she lives. Discussed her recent diagnosis and treatment options. She would benefit from ADAMA. Since she is very symptomatic from her rectal cancer (pain and intermittent bleeding),it would be reasonable to consider starting with chemoradiation then chemotherapy. Discussed xeloda along with radiation, and she was agreeable to the same. She was scheduled to meet with rad onc next week. Iron studies obtained in clinic showed iron sat 12%, ferritin 640. Hgb was 9.9, MCV 82. Plan was for parenteral iron and possible JOHN to help support hgb as patient does not accept blood products. Patient presented to the emergency room for intractable rectal pain and nausea. Patient reports he been having increasing nausea with eating as well as with smells and seeing food with associated decreased oral intake. Reporting persistent rectal bleeding, denies blood clots. Patient was prescribed morphine ER 15 mg twice daily and Percocet 10/325 for pain control but patient states this was not helping manage her pain which caused her to present for further evaluation.. On admit chest x-ray showed mild infrahilar opacities. CTA chest showed right middle and right lower lobe pneumonia. Incorrect phase of imaging to evaluate for PE. Patient has been started on azithromycin and Rocephin for suspected pneumonia. UA suspicious for UTI, urine culture pending. Patient is afebrile. Labs reviewed, WBC 10.1, hemoglobin 9.7, platelets 525,000. Creatinine 0.6, GFR greater than 90. Troponin negative, BNP 365. Bilirubin, LFTs and lipase WNL. Review of Systems 10 point ROS is negative except as stated in the HPI Past Medical History Past Medical History: Asthma, Diabetes Mellitus, Fibromyalgia, Hypertension, Osteoarthritis (OA), Sleep Apnea/CPAP/BIPAP Additional Past Medical History / Comment(s): IBS, HX POLYPS, STATES NOT CURRENTLY TAKING ANY MEDS FOR DIABETES BUT HAS IN PAST, HAS HEEL SPUR ON LEFT FOOT, CURRENTLY USING A CRUTCH History of Any Multi-Drug Resistant Organisms: None Reported Past Surgical History: Bowel Resection, Hysterectomy, Joint Replacement, Orthopedic Surgery Additional Past Surgical History / Comment(s): COLECTOMY for polyps, LEFT KNEE REPLACEMENT, RT ROTATOR CUFF Past Anesthesia/Blood Transfusion Reactions: No Reported Reaction Past Psychological History: Anxiety, Depression Smoking Status: Never smoker Past Alcohol Use History: None Reported Past Drug Use History: None Reported - Past Family History Father Family Medical History: Cancer Additional Family Medical History / Comment(s): Father at age 79 from lymphoma. Mother Family Medical History: Cancer Additional Family Medical History / Comment(s): Mother at age 82 from colon cancer. Brother(s) Additional Family Medical History / Comment(s): Patient has 1 brother with no major medical problems. Patient does not have any sisters. She has one son that is healthy. Medications and Allergies Home Medications Medication Instructions Recorded Confirmed Type DULoxetine HCL [Cymbalta] 60 mg PO DAILY 11/04/23 12/22/24 History traZODone HCL [Desyrel] 100 mg PO HS 11/04/23 12/22/24 History Loratadine 10 mg PO DAILY 10/04/24 12/22/24 History Montelukast [Singulair] 10 mg PO DAILY 10/04/24 12/22/24 History Gabapentin [Neurontin] 300 mg PO BID 10/16/24 12/22/24 History Potassium Chloride [Klor-Con 8] 8 meq PO DAILY 10/16/24 12/22/24 History Capecitabine 500mg Tablet 1 dose PO DIRECTED 12/22/24 12/22/24 History Garlic Oil 2mg Capsule 1 cap PO DAILY 12/22/24 12/22/24 History Losartan/Hydrochlorothiazide 1 tab PO DAILY 12/22/24 12/22/24 History [Hyzaar 100-25 Tablet] Morphine Sulfate ER [Ms Contin] 15 mg PO Q12HR 12/22/24 12/22/24 History hydrOXYzine pamoate [Vistaril] 25 mg PO BID 12/22/24 12/22/24 History oxyCODONE-APAP 10-325MG [Percocet 1 tab PO QID PRN 12/22/24 12/22/24 History 10-325 mg] Allergies Allergy/AdvReac Type Severity Reaction Status Date / Time fluticasone furoate Allergy "Respiratory Verified 12/21/24 20:22 [From Breo Ellipta] Issues" nickel [Nickel] Allergy Rash/Hives Verified 12/21/24 20:22 vilanterol Allergy "Respiratory Verified 06/19/25 20:22 [From Breo Ellipta] Issues" Physical Exam Vitals: Vital Signs Temp Pulse Resp BP Pulse Ox 12/22/24 18:41 78 17 92/78 99 12/22/24 17:11 94 16 96 12/22/24 16:27 77 18 135/64 99 12/22/24 15:42 17 12/22/24 13:10 98.1 F 99 20 131/72 97 12/22/24 11:00 19 12/22/24 09:00 98.0 F 83 18 128/54 98 12/22/24 06:00 66 17 94 L 12/22/24 03:06 64 16 115/54 95 12/22/24 02:29 66 17 97 12/21/24 20:16 98.3 F 97 20 127/62 99 - Constitutional General appearance: no acute distress, obese - EENT Eyes: anicteric sclerae, EOMI ENT: hearing grossly normal - Respiratory breathing is even and unlabored - Cardiovascular skin warm and dry - Gastrointestinal General gastrointestinal: soft, no tenderness - Integumentary Integumentary: no cyanotic, no jaundiced - Psychiatric Psychiatric: A&O x's 3 Results CBC & Chem 7: 12/23/24 05:59 12/23/24 05:59 Labs: Abnormal Lab Results - Last 24 Hours (Table) 12/21/24 12/21/24 12/21/24 Range/Units 23:43 23:43 23:43 WBC 10.15 H (4.50-10.00) 10*3/uL RBC 3.82 L (4.10-5.20) 10*6/uL Hgb 9.7 L D (12.0-15.0) g/dL Hct 30.3 L (37.2-46.3) % MCV 79.3 L (80.0-97.0) fL MCH 25.4 L (27.0-32.0) pg Plt Count 525 H (140-440) 10*3/uL MPV 8.1 L (9.5-12.2) fL Neutrophils # 7.95 H (1.80-7.70) 10*3/uL Eosinophils # 0.02 L (0.04-0.35) 10*3/uL D-Dimer 0.99 H (<0.60) mg/L FEU Sodium 133 L (137-145) mmol/L POC Glucose (mg/dL) (70-110) mg/dL Albumin 3.1 L (3.5-5.0) g/dL Lipase <10 L (23-300) U/L Ur Leukocyte Esterase (Negative) Urine WBC (0-5) /hpf Urine Mucus (None) /hpf 12/22/24 12/22/24 Range/Units 09:23 09:41 WBC (4.50-10.00) 10*3/uL RBC (4.10-5.20) 10*6/uL Hgb (12.0-15.0) g/dL Hct (37.2-46.3) % MCV (80.0-97.0) fL MCH (27.0-32.0) pg Plt Count (140-440) 10*3/uL MPV (9.5-12.2) fL Neutrophils # (1.80-7.70) 10*3/uL Eosinophils # (0.04-0.35) 10*3/uL D-Dimer (<0.60) mg/L FEU Sodium (137-145) mmol/L POC Glucose (mg/dL) 63 L (70-110) mg/dL Albumin (3.5-5.0) g/dL Lipase (23-300) U/L Ur Leukocyte Esterase Large H (Negative) Urine WBC 22 H (0-5) /hpf Urine Mucus Rare H (None) /hpf Chest x-ray: report reviewed CT scan - chest: report reviewed Assessment and Plan (1) Intractable nausea Current Visit: Yes Status: Acute Code(s): R11.0 - NAUSEA SNOMED Code(s): 661956485 (2) Intractable pain Current Visit: Yes Status: Acute Code(s): R52 - PAIN, UNSPECIFIED SNOMED Code(s): 17249313 (3) Anemia Current Visit: Yes Status: Acute Priority: High Code(s): D64.9 - ANEMIA, UNSPECIFIED SNOMED Code(s): 494433058 (4) Rectal cancer Current Visit: Yes Status: Acute Priority: High Code(s): C20 - MALIGNANT NEOPLASM OF RECTUM SNOMED Code(s): 579787970 Plan: Rectal adenocarcinoma -Oncology history as dictated in the HPI -Since patient is very symptomatic from her rectal cancer (pain and intermittent bleeding),it was discussed at her f/u on 12/19 to start with chemoradiation then chemotherapy. -Plan is to start xeloda with concurrent RT. She was scheduled to meet with rad onc next week -Will consult rad onc. Pt may benefit from starting inpt chemo/RT Anemia, secondary to malignancy -She has ongoing intermittent rectal bleeding -Labs on 12/19, showed hgb 9.9, iron sat 12%, ferritin 640 -Hgb on admit stable, at 9.7 -Will start parenteral iron, with goal of iron sat > 20%, for JOHN use -Continue to monitor CBC Intractable pain -Patient was prescribed morphine ER 15 mg twice daily and Percocet 10/325 for pain control, but pain began to be poorly controlled on current regimen -Pain meds adjusted. MS contin increased to 30mg BID. Continue percocet for breakthrough pain, and IVP morphine for severe breakthrough pain -Bowel regimen in place Intractable nausea -Continue zofran and compazine prn -Ativan 0.5mg TID added for anticipatory nausea -Increase oral intake as tolerated
[2024-12-23 11:33] LABS: Glucose,Whole Blood 96 mg/dL (70-110)
--- NOTE | 2024-12-23 13:26 | P.PN ---
Subjective Progress Note Date: 12/23/24 Principal diagnosis: Rectal adenocarcinoma - Afebrile, no acute events overnight - Continues to have rectal discomfort with pain medications providing moderate relief - She continues to have intermittent bright red blood per rectum Objective - Vital Signs Vital signs: Vital Signs Temp 97.9 F 12/23/24 07:40 Pulse 74 12/23/24 07:40 Resp 17 12/23/24 07:43 BP 122/74 12/23/24 07:40 Pulse Ox 98 12/23/24 07:40 FiO2 Intake & Output 12/22/24 12/23/24 12/23/24 18:59 06:59 18:59 Other: # Voids 1 - Constitutional General appearance: Present: cooperative, no acute distress - EENT Eyes: Present: EOMI - Respiratory Details: Nonlabored breathing - Cardiovascular Details: Warm and well-perfused - Gastrointestinal General gastrointestinal: Present: distended, soft. Absent: tenderness - Neurologic Neurologic: Present: CNII-XII intact - Labs CBC & Chem 7: 12/23/24 05:59 12/23/24 05:59 Labs: Abnormal Lab Results - Last 24 Hours (Table) 12/22/24 12/23/24 12/23/24 Range/Units 22:12 05:59 05:59 RBC 3.50 L (4.10-5.20) 10*6/uL Hgb 8.8 L (12.0-15.0) g/dL Hct 28.4 L (37.2-46.3) % MCH 25.1 L (27.0-32.0) pg MCHC 31.0 L (32.0-37.0) g/dL RDW 17.9 H (11.5-14.5) % Plt Count 476 H (140-440) 10*3/uL MPV 8.2 L (9.5-12.2) fL Monocytes # 1.04 H (0.20-1.00) 10*3/uL Sodium 135 L (137-145) mmol/L BUN 6 L (7-17) mg/dL POC Glucose (mg/dL) 112 H (70-110) mg/dL Microbiology - Last 24 Hours (Table) 12/22/24 09:41 Urine Culture - Preliminary Urine,Voided Gram Neg Bacilli Assessment and Plan (1) Stage III carcinoma of rectum Current Visit: Yes Status: Acute Code(s): C20 - MALIGNANT NEOPLASM OF RECTUM SNOMED Code(s): 59729068 (2) Anemia Current Visit: Yes Status: Acute Priority: High Code(s): D64.9 - ANEMIA, UNSPECIFIED SNOMED Code(s): 382803133 (3) Intractable nausea Current Visit: Yes Status: Acute Code(s): R11.0 - NAUSEA SNOMED Code(s): 716001888 (4) Intractable pain Current Visit: Yes Status: Acute Code(s): R52 - PAIN, UNSPECIFIED SNOMED Code(s): 15248491 Plan: Stage III rectal adenocarcinoma -Oncology history as dictated in the HPI -Since patient is very symptomatic from her rectal cancer (pain and intermittent bleeding),it was discussed at her f/u on 12/19 to start with chemoradiation then chemotherapy -Plan is to start xeloda with concurrent RT. She was scheduled to meet with rad onc next week -Consult to radiation/oncology placed -As she is symptomatic from the rectal cancer, she would benefit from starting treatment inpatient -She does have Xeloda at home. I did advise her to have someone bring this from home once radiation is to begin Anemia, secondary to malignancy -She has ongoing intermittent rectal bleeding -Labs on 12/19, showed hgb 9.9, iron sat 12%, ferritin 640 -Hgb stable at 8.8 -Continue parenteral iron, with goal of iron sat > 20%, for JOHN use as she is [employer] -Continue to monitor CBC Intractable pain -Patient was prescribed morphine ER 15 mg twice daily and Percocet 10/325 for pain control, but pain began to be poorly controlled on current regimen -Pain meds adjusted. Continue MS contin 30mg BID. Continue percocet for breakthrough pain, and IVP morphine for severe breakthrough pain -Bowel regimen in place Intractable nausea -Continue zofran and compazine prn -Ativan 0.5mg TID added for anticipatory nausea -Increase oral intake as tolerated Oj Rodriguez MD
--- NOTE | 2024-12-23 15:04 | P.PN ---
Subjective Progress Note Date: 12/23/24 Hospital Course: Patient is a 74-year-old female with past medical history of rectal adenocarci noma, chronic anemia secondary to bleeding hemorrhoids and rectal mass,, fibromyalgia, IBS, DM type II, HTN, who presented to the ER on 12/21/2024 for intractable nausea and rectal pain. Patient has been dealing with significantly decreased oral intake secondary to nausea, she was previously able to keep down Ensure protein shakes however tolerated water and juices. Denies dysphagia, vomiting. She does have chronic diarrhea, sometimes reports BRB MT which is not unusual for her and she was prev iously instructed to take tranexamic acid. Patient complains of severe rectal pain, at home she is on oxycodone and morphine without significant relief. On admission afebrile, heart rate in 60s, BP 115/54, SpO2 94% on room air. Blood work revealed WBC of 10.1, hemoglobin 9.7, improved from October 7.8. Platelet count persistently elevated 525, sodium 133, normal bicarb, potassium, creatinine, normal liver enzymes, BNP 365, negative lipase, troponin negative. EKG showed sinus rhythm, no ST elevation, QTc 405, CTA chest showed right middle and right lower lobe pneumonia, in the correct phase of imaging to evaluate for PE. Patient will be admitted for intractable nausea, pain, community-acquired pneumonia. Started on azithromycin and ceftriaxone SOT 12/22, for pain control patient is on IV Dilaudid, Zofran ordered for nausea, oncology consulted, PT OT, social work on board. 12/23: Seen and examined at bedside, no acute events overnight, patient stated her pain is better controlled, nausea significantly improved, she is afebrile, normotensive, satting well on room air. Blood work showed normal WBC count, hemoglobin dropped to 8.8, sodium 135, normal creatinine, chloride, potassium, glucose controlled. Procalcitonin 0.27. Oncology consulted radiation oncology. Plan to start treatment inpatient. Concurrent initiation of Xeloda. For pain control oncology started morphine ER 30 twice daily, Percocet 10 every 4 hours as needed, morphine 4 mg IV every 4 hours as needed. Pertinent positives and negatives as discussed above, a complete review of systems was performed and all other systems are negative. Vitals Signs Reviewed. Vital signs reviewed General: Chronically ill-appearing, in distress from pain, obese Derm: warm, dry Head: atraumatic, normocephalic, symmetric Eyes: EOMI, no lid lag, anicteric sclera, pupils equal round reactive to light ENT: Nose and ears atraumatic Neck: No thyromegaly, supple Mouth: no lip lesion, mucus membranes moist Cardiovascular: S1S2 reg, no murmur, no edema Lungs: clear to auscultation bilateral, no rhonchi, no rales, no wheeze, no accessory muscle use Abdominal: soft, nontender to palpation, no guarding, no appreciable organom egaly Ext: no gross muscle atrophy, muscle strength muscle strength 5 out of 5 in all 4 extremities, no contractures Neuro: CN II-XII grossly intact Psych: Alert, oriented, appropriate affect Assessment/Plan: Intractable nausea Intractable rectal pain rectal adenocarcinoma chronic anemia secondary to bleeding hemorrhoids and rectal mass Thrombocytosis Hyponatremia likely due to decreased solute intake - Continue hydration with NS at 75 cc/h - Famotidine 20 mg p.o. twice daily -Oncology consulted, Oncology consulted radiation oncology. Plan to start treatment inpatient. Concurrent initiation of Xeloda. For pain control oncology started morphine ER 30 twice daily, Percocet 10 every 4 hours as needed, morphine 4 mg IV every 4 hours as needed. -Zofran 4 mg IV every 8 hours as needed, Compazine 5 mg p.o. every 8 hours as needed -discussed with RN, will advance diet to regular Community-acquired pneumonia -Continue azithromycin 500 mg p.o. daily, ceftriaxone 2 g IV every 24 hours SOT 12/22 -CBC daily, sputum cultures ordered fibromyalgia IBS DM type II, proceed with Accu-Cheks, hypoglycemia precautions, SSI low intensity HTN - Continue home duloxetine 60 mg daily, gabapentin 300 mg twice daily, Vistaril 25 twice daily, loratadine 10 mg daily, Hyzaar 10/25 daily, montelukast 10 mg daily morphine ER 15 mg twice daily, trazodone 100 mg p.o. nightly CODE STATUS: Full code, patient states her son would make decisions for her DVT prophylaxis: SCD Anticipated discharge date: TBD Anticipated discharge place: TBD Objective - Vital Signs Vital signs: Vital Signs Temp 97.9 F 12/23/24 07:40 Pulse 74 12/23/24 07:40 Resp 17 12/23/24 07:43 BP 122/74 12/23/24 07:40 Pulse Ox 98 12/23/24 07:40 FiO2 Intake & Output 12/22/24 12/23/24 12/23/24 18:59 06:59 18:59 Other: # Voids 1 - Labs CBC & Chem 7: 12/23/24 05:59 12/23/24 05:59 Labs: Abnormal Lab Results - Last 24 Hours (Table) 12/22/24 12/23/24 12/23/24 Range/Units 22:12 05:59 05:59 RBC 3.50 L (4.10-5.20) 10*6/uL Hgb 8.8 L (12.0-15.0) g/dL Hct 28.4 L (37.2-46.3) % MCH 25.1 L (27.0-32.0) pg MCHC 31.0 L (32.0-37.0) g/dL RDW 17.9 H (11.5-14.5) % Plt Count 476 H (140-440) 10*3/uL MPV 8.2 L (9.5-12.2) fL Monocytes # 1.04 H (0.20-1.00) 10*3/uL Sodium 135 L (137-145) mmol/L BUN 6 L (7-17) mg/dL POC Glucose (mg/dL) 112 H (70-110) mg/dL Microbiology - Last 24 Hours (Table) 12/22/24 09:41 Urine Culture - Preliminary Urine,Voided Gram Neg Bacilli
[2024-12-23 16:46] LABS: Glucose,Whole Blood 77 mg/dL (70-110)
[2024-12-23] MEDS: DOCUSATE 100 MG CAP PO SCH (16:55)
[2024-12-23] MEDS: oxyCODONE-APAP 10-325MG 1 EACH TAB PO PRN (16:59)
[2024-12-23 20:14] LABS: Glucose,Whole Blood 122 mg/dL (70-110)
[2024-12-23] MEDS ORDERED: MORPHINE SULFATE ER 15 MG TABLET PO SCH (21:00)
[2024-12-23] MEDS ORDERED: traZODone HCL 100 MG TAB PO SCH (21:00)
[2024-12-23] MEDS: hydrOXYzine pamoate 25 MG CAP PO SCH (21:15)
[2024-12-23] MEDS: GABAPENTIN 300 MG CAP PO SCH (21:15)
[2024-12-24 06:31] LABS: Glucose,Whole Blood 82 mg/dL (70-110)
[2024-12-24] MEDS: LORATADINE 10 MG TAB PO SCH (08:34)
[2024-12-24] MEDS: MONTELUKAST 10 MG TAB PO SCH (08:34)
[2024-12-24] MEDS: DULoxetine HCL 60 MG CAPSULE.DR PO SCH (08:34)
[2024-12-24] MEDS: LOSARTAN-HCTZ 50-12.5 MG 1 EACH TAB PO SCH (08:35)
[2024-12-24] MEDS: ONDANSETRON 4 MG/2 ML VIAL IVP PRN (08:53)
[2024-12-24 10:00] LABS: Basophils # (A) 0.04 X 10*3/uL (0.00-0.10); Basophils % (A) 0.5 %; Eosinophils # (A) 0.18 X 10*3/uL (0.04-0.35); Eosinophils % (A) 2.2 %; HCT 32.8 % (37.2-46.3); HGB 9.7 g/dL (12.0-15.0); Lymphocytes # (A) 2.43 X 10*3/uL (0.90-5.00); Lymphocytes % (A) 30.1 %; MCH 24.6 pg (27.0-32.0); MCHC 29.6 g/dL (32.0-37.0); Mean Platelet Volume 8.1 FL (9.5-12.2); Monocytes # (A) 0.83 X 10*3/uL (0.20-1.00); Monocytes % (A) 10.3 %; NRBC Per 100 WBC 0 X 10*3/uL (0.00-0.01); Neutrophils # (A) 4.57 X 10*3/uL (1.80-7.70); Neutrophils % (A) 56.7 %; Platelet Count 539 X 10*3/uL (140-440); RBC 3.95 X 10*6/uL (4.10-5.20); RDW 18.1 % (11.5-14.5); WBC 8.07 X 10*3/uL (4.50-10.00)
[2024-12-24 10:10] LABS: BUN/Creat Ratio 8.33 Ratio (12.00-20.00); Calcium 8.8 mg/dL (8.7-10.3); Carbon Dioxide 26.4 mmol/L (21.6-31.8); Chloride 106 mmol/L (96-109); Glucose 83 mg/dL (70-110); Sodium 144 mmol/L (135-145)
--- NOTE | 2024-12-24 11:00 | P.PN ---
Subjective Progress Note Date: 12/24/24 Hospital Course: Patient is a 74-year-old female with past medical history of rectal adenocarci noma, chronic anemia secondary to bleeding hemorrhoids and rectal mass,, fibromyalgia, IBS, DM type II, HTN, who presented to the ER on 12/21/2024 for intractable nausea and rectal pain. Patient has been dealing with significantly decreased oral intake secondary to nausea, she was previously able to keep down Ensure protein shakes however tolerated water and juices. Denies dysphagia, vomiting. She does have chronic diarrhea, sometimes reports BRB MS which is not unusual for her and she was prev iously instructed to take tranexamic acid. Patient complains of severe rectal pain, at home she is on oxycodone and morphine without significant relief. On admission afebrile, heart rate in 60s, BP 115/54, SpO2 94% on room air. Blood work revealed WBC of 10.1, hemoglobin 9.7, improved from October 7.8. Platelet count persistently elevated 525, sodium 133, normal bicarb, potassium, creatinine, normal liver enzymes, BNP 365, negative lipase, troponin negative. EKG showed sinus rhythm, no ST elevation, QTc 405, CTA chest showed right middle and right lower lobe pneumonia, in the correct phase of imaging to evaluate for PE. Patient will be admitted for intractable nausea, pain, community-acquired pneumonia. Started on azithromycin and ceftriaxone SOT 12/22,oncology consulted, PT OT, social work on board. 12/24: Seen and examined at bedside, no acute events overnight, patient stated her pain is better controlled, nausea significantly improved, she is tolerating regular diet, complains of dysuria and sticky urine, already covered with ceftriaxone. She is afebrile, normotensive, satting well on room air. Blood work showed normal WBC count, globin stable at 9.7, sodium 144, normal creati nine, chloride, potassium, glucose controlled. Procalcitonin 0.27. Oncology consulted radiation oncology. Plan to start treatment inpatient. Concurrent initiation of Xeloda. For pain control oncology started morphine ER 30 twice daily, Percocet 10 every 4 hours as needed, morphine 4 mg IV every 4 hours as needed. I was later notified by RN that patient had an episode of rectal bleeding, 1 g of tranexamic acid ordered, repeat CBC ordered. Pertinent positives and negatives as discussed above, a complete review of systems was performed and all other systems are negative. Vitals Signs Reviewed. Vital signs reviewed General: Chronically ill-appearing, in distress from pain, obese Derm: warm, dry Head: atraumatic, normocephalic, symmetric Eyes: EOMI, no lid lag, anicteric sclera, pupils equal round reactive to light ENT: Nose and ears atraumatic Neck: No thyromegaly, supple Mouth: no lip lesion, mucus membranes moist Cardiovascular: S1S2 reg, no murmur, no edema Lungs: clear to auscultation bilateral, no rhonchi, no rales, no wheeze, no accessory muscle use Abdominal: soft, nontender to palpation, no guarding, no appreciable organomegaly Ext: no gross muscle atrophy, muscle strength muscle strength 5 out of 5 in all 4 extremities, no contractures Neuro: CN II-XII grossly intact Psych: Alert, oriented, appropriate affect Assessment/Plan: Intractable nausea, resolved Intractable rectal pain, improved rectal adenocarcinoma chronic anemia secondary to bleeding hemorrhoids and rectal mass Thrombocytosis Hyponatremia likely due to decreased solute intake - Continue hydration with NS at 75 cc/h - Famotidine 20 mg p.o. twice daily -Oncology consulted, Oncology consulted radiation oncology. Plan to start treatment inpatient. Concurrent initiation of Xeloda. For pain control oncology started morphine ER 30 twice daily, Percocet 10 every 4 hours as needed, morphine 4 mg IV every 4 hours as needed. -Zofran 4 mg IV every 8 hours as needed, Compazine 5 mg p.o. every 8 hours as needed -discussed with RN, will advance diet to regular Dysuria: UA showing WBC count of 22 with large leukocyte esterase, patient already covered with ceftriaxone as above Episode of rectal bleed - Patient gets those episodes at home, was told to take tranexamic acid. Ordered 1 g of IV tranexamic acid, will recheck CBC now and in a.m. Community-acquired pneumonia -Continue azithromycin 500 mg p.o. daily, ceftriaxone 2 g IV every 24 hours SOT 12/22 -CBC daily, sputum cultures ordered fibromyalgia IBS DM type II, proceed with Accu-Cheks, hypoglycemia precautions, SSI low intensity HTN - Continue home duloxetine 60 mg daily, gabapentin 300 mg twice daily, Vistaril 25 twice daily, loratadine 10 mg daily, Hyzaar 10/25 daily, montelukast 10 mg daily morphine ER 15 mg twice daily, trazodone 100 mg p.o. nightly CODE STATUS: Full code, patient states her son would make decisions for her DVT prophylaxis: SCD Anticipated discharge date: TBD Anticipated discharge place: TBD Objective - Vital Signs Vital signs: Vital Signs Temp 97.8 F 12/24/24 08:00 Pulse 70 12/24/24 08:00 Resp 17 12/24/24 08:00 BP 124/70 12/24/24 08:00 Pulse Ox 98 12/24/24 08:00 FiO2 Intake & Output 12/23/24 12/24/24 12/24/24 18:59 06:59 18:59 Intake Total 275 Balance 275 Weight 109.316 kg Intake: Oral 275 Other: Voiding Method Toilet # Voids 1 - Labs CBC & Chem 7: 12/24/24 03:46 12/24/24 03:46 Labs: Abnormal Lab Results - Last 24 Hours (Table) 12/23/24 12/24/24 12/24/24 Range/Units 20:12 03:46 03:46 RBC 3.95 L (4.10-5.20) X 10*6/uL Hgb 9.7 L (12.0-15.0) g/dL Hct 32.8 L (37.2-46.3) % MCH 24.6 L (27.0-32.0) pg MCHC 29.6 L (32.0-37.0) g/dL RDW 18.1 H (11.5-14.5) % Plt Count 539 H (140-440) X 10*3/uL MPV 8.1 L (9.5-12.2) FL BUN 5.0 L (9.0-27.0) mg/dL BUN/Creatinine Ratio 8.33 L (12.00-20.00) Ratio POC Glucose (mg/dL) 122 H (70-110) mg/dL Microbiology - Last 24 Hours (Table) 12/22/24 09:41 Urine Culture - Preliminary Urine,Voided Gram Neg Bacilli
[2024-12-24] MEDS: TRANEXAMIC 1,000 MG/100ML-NACL 1,000 MG in SALINE 1 100ML.BAG IVPB ONE (11:09)
[2024-12-24 11:32] LABS: Glucose,Whole Blood 111 mg/dL (70-110)
[2024-12-24 11:38] LABS: HCT 31.9 % (37.2-46.3); HGB 9.8 g/dL (12.0-15.0); MCH 24.9 pg (27.0-32.0); MCHC 30.7 g/dL (32.0-37.0); MCV 81.2 fL (80.0-97.0); Mean Platelet Volume 7.7 fL (9.5-12.2); Platelet Count 525 10*3/uL (140-440); RBC 3.93 10*6/uL (4.10-5.20); RDW 17.8 % (11.5-14.5); WBC 7.14 10*3/uL (4.50-10.00)
[2024-12-24] MEDS: PROCHLORPERAZINE INJ 10 MG/2 ML VIAL IVP PRN (12:24)
[2024-12-24] MEDS: MORPHINE SULFATE 2 MG/ML SYRINGE IVP STA (12:24)
--- NOTE | 2024-12-24 14:47 | P.PN ---
Subjective Progress Note Date: 12/24/24 Principal diagnosis: Rectal adenocarcinoma - Afebrile, no acute events overnight - Had significant pain this morning despite morphine 4 mg IV, Percocet 10/325, and as needed Ativan. This resolved following one-time order of morphine 2 mg IV - Currently, she is comfortable and was able to sit upright without any discomfort - She has had continued intermittent bright red blood per rectum and received 1 dose of tranexamic acid Objective - Vital Signs Vital signs: Vital Signs Temp 97.8 F 12/24/24 08:00 Pulse 70 12/24/24 08:00 Resp 17 12/24/24 08:00 BP 124/70 12/24/24 08:00 Pulse Ox 98 12/24/24 08:00 FiO2 Intake & Output 12/23/24 12/24/24 12/24/24 18:59 06:59 18:59 Intake Total 275 Balance 275 Weight 109.316 kg Intake: Oral 275 Other: Voiding Method Toilet # Voids 1 - Constitutional General appearance: Present: cooperative, no acute distress - EENT Eyes: Present: EOMI - Respiratory Details: Nonlabored breathing - Cardiovascular Details: Warm and well-perfused - Gastrointestinal General gastrointestinal: Present: soft. Absent: distended - Integumentary Integumentary: Absent: rash - Neurologic Neurologic: Present: CNII-XII intact. Absent: focal deficits - Labs CBC & Chem 7: 12/24/24 11:15 12/24/24 03:46 Labs: Abnormal Lab Results - Last 24 Hours (Table) 12/23/24 12/24/24 12/24/24 Range/Units 20:12 03:46 03:46 RBC 3.95 L (4.10-5.20) X 10*6/uL Hgb 9.7 L (12.0-15.0) g/dL Hct 32.8 L (37.2-46.3) % MCH 24.6 L (27.0-32.0) pg MCHC 29.6 L (32.0-37.0) g/dL RDW 18.1 H (11.5-14.5) % Plt Count 539 H (140-440) X 10*3/uL MPV 8.1 L (9.5-12.2) FL BUN 5.0 L (9.0-27.0) mg/dL BUN/Creatinine Ratio 8.33 L (12.00-20.00) Ratio POC Glucose (mg/dL) 122 H (70-110) mg/dL 12/24/24 12/24/24 Range/Units 11:15 11:31 RBC 3.93 L (4.10-5.20) X 10*6/uL Hgb 9.8 L (12.0-15.0) g/dL Hct 31.9 L (37.2-46.3) % MCH 24.9 L (27.0-32.0) pg MCHC 30.7 L (32.0-37.0) g/dL RDW 17.8 H (11.5-14.5) % Plt Count 525 H (140-440) X 10*3/uL MPV 7.7 L (9.5-12.2) FL BUN (9.0-27.0) mg/dL BUN/Creatinine Ratio (12.00-20.00) Ratio POC Glucose (mg/dL) 111 H (70-110) mg/dL Microbiology - Last 24 Hours (Table) 12/22/24 09:41 Urine Culture - Preliminary Urine,Voided Gram Neg Bacilli Assessment and Plan (1) Stage III carcinoma of rectum Current Visit: Yes Status: Acute Code(s): C20 - MALIGNANT NEOPLASM OF RECTUM SNOMED Code(s): 22974820 (2) Anemia Current Visit: Yes Status: Acute Priority: High Code(s): D64.9 - ANEMIA, UNSPECIFIED SNOMED Code(s): 721971102 (3) Intractable nausea Current Visit: Yes Status: Acute Code(s): R11.0 - NAUSEA SNOMED Code(s): 563768627 (4) Intractable pain Current Visit: Yes Status: Acute Code(s): R52 - PAIN, UNSPECIFIED SNOMED Code(s): 34822265 Plan: Stage III rectal adenocarcinoma -Oncology history as dictated in the HPI -Since patient is very symptomatic from her rectal cancer (pain and intermittent bleeding),it was discussed at her f/u on 12/19 to start with chemoradiation then chemotherapy -Plan is to start xeloda with concurrent RT. She was scheduled to meet with rad onc next week -Consult to radiation/oncology placed -As she is symptomatic from the rectal cancer, she would benefit from starting treatment inpatient -Xeloda was brought from home. We will start this upon initiating RT Anemia, secondary to malignancy -She has ongoing intermittent rectal bleeding -Labs on 12/19, showed hgb 9.9, iron sat 12%, ferritin 640 -Hgb stable at 9.7 -Continue parenteral iron, with goal of iron sat > 20%, for JOHN use as she is [employer] -Continue to monitor CBC Intractable pain -Patient was prescribed morphine ER 15 mg twice daily and Percocet 10/325 for pain control, but pain began to be poorly controlled on current regimen -Acute pain this morning resolved with additional 2 mg IV dose of morphine x 1 -Continue MS contin 30mg BID. Continue percocet for breakthrough pain, and IVP morphine 4 mg every 4 hours for severe breakthrough pain -If she has recurrent breakthrough pain despite the regimen above, we will consider increasing IV push morphine to 6 mg every 4 hours -Bowel regimen in place Intractable nausea -Continue zofran and compazine prn -Ativan 0.5mg TID added for anticipatory nausea -Increase oral intake as tolerated Oj Rodriguez MD
[2024-12-24 17:07] LABS: Glucose,Whole Blood 80 mg/dL (70-110)
[2024-12-24 20:42] LABS: Glucose,Whole Blood 113 mg/dL (70-110)
[2024-12-25 06:44] LABS: Glucose,Whole Blood 90 mg/dL (70-110)
[2024-12-25 10:21] LABS: Basophils # (A) 0.05 X 10*3/uL (0.00-0.10); Basophils % (A) 0.6 %; Eosinophils # (A) 0.21 X 10*3/uL (0.04-0.35); Eosinophils % (A) 2.5 %; HCT 32.7 % (37.2-46.3); HGB 9.6 g/dL (12.0-15.0); Lymphocytes # (A) 2.46 X 10*3/uL (0.90-5.00); Lymphocytes % (A) 28.8 %; MCH 24.7 pg (27.0-32.0); MCHC 29.4 g/dL (32.0-37.0); MCV 84.1 FL (80.0-97.0); Mean Platelet Volume 8.1 FL (9.5-12.2); Monocytes # (A) 0.69 X 10*3/uL (0.20-1.00); Monocytes % (A) 8.1 %; NRBC Per 100 WBC 0 X 10*3/uL (0.00-0.01); Neutrophils % (A) 59.6 %; Platelet Count 583 X 10*3/uL (140-440); RBC 3.89 X 10*6/uL (4.10-5.20); WBC 8.54 X 10*3/uL (4.50-10.00)
[2024-12-25 10:28] LABS: BUN/Creat Ratio 10.33 Ratio (12.00-20.00); Blood Urea Nitrogen 6.2 mg/dL (9.0-27.0); Calcium 8.7 mg/dL (8.7-10.3); Carbon Dioxide 25.1 mmol/L (21.6-31.8); Chloride 102 mmol/L (96-109); Glucose 101 mg/dL (70-110); Potassium 4.3 mmol/L (3.5-5.5); Sodium 139 mmol/L (135-145)
[2024-12-25 11:33] LABS: Glucose,Whole Blood 99 mg/dL (70-110)
--- NOTE | 2024-12-25 14:11 | P.PN ---
Subjective Progress Note Date: 12/25/24 No acute events overnight. Reports no rectal bleeding x 2 days. States pain is being well controlled on current regimen Objective - Vital Signs Vital signs: Vital Signs Temp 98.8 F 12/25/24 07:20 Pulse 81 12/25/24 08:31 Resp 18 12/25/24 08:31 BP 125/68 12/25/24 07:20 Pulse Ox 98 12/25/24 09:28 FiO2 Intake & Output 12/24/24 12/25/24 12/25/24 18:59 06:59 18:59 Intake Total 275 Balance 275 Intake: Oral 275 Other: Voiding Method Toilet Toilet # Voids 1 4 # Bowel Movements 2 - Constitutional General appearance: Present: no acute distress, obese - EENT Eyes: Present: anicteric sclerae, EOMI ENT: Present: hearing grossly normal - Respiratory Details: breathing is even and unlabored - Cardiovascular Details: skin warm and dry - Gastrointestinal General gastrointestinal: Present: soft. Absent: tenderness - Integumentary Integumentary: Absent: cyanotic, jaundiced - Psychiatric Psychiatric: Present: A&O x's 3 - Labs CBC & Chem 7: 12/25/24 02:29 12/25/24 02:29 Labs: Abnormal Lab Results - Last 24 Hours (Table) 12/24/24 12/25/24 12/25/24 Range/Units 20:40 02:29 02:29 RBC 3.89 L (4.10-5.20) X 10*6/uL Hgb 9.6 L (12.0-15.0) g/dL Hct 32.7 L (37.2-46.3) % MCH 24.7 L (27.0-32.0) pg MCHC 29.4 L (32.0-37.0) g/dL RDW 18.0 H (11.5-14.5) % Plt Count 583 H (140-440) X 10*3/uL MPV 8.1 L (9.5-12.2) FL BUN 6.2 L (9.0-27.0) mg/dL BUN/Creatinine Ratio 10.33 L (12.00-20.00) Ratio POC Glucose (mg/dL) 113 H (70-110) mg/dL Microbiology - Last 24 Hours (Table) 12/22/24 09:41 Urine Culture - Final Urine,Voided Escherichia coli Assessment and Plan (1) Intractable nausea Current Visit: Yes Status: Acute Code(s): R11.0 - NAUSEA SNOMED Code(s): 002980526 (2) Intractable pain Current Visit: Yes Status: Acute Code(s): R52 - PAIN, UNSPECIFIED SNOMED Code(s): 56903404 (3) Anemia Current Visit: Yes Status: Acute Priority: High Code(s): D64.9 - ANEMIA, UNSPECIFIED SNOMED Code(s): 661252458 (4) Rectal cancer Current Visit: Yes Status: Acute Priority: High Code(s): C20 - MALIGNANT NEOPLASM OF RECTUM SNOMED Code(s): 447746914 Plan: Stage III rectal adenocarcinoma -Oncology history as dictated in the HPI -Since patient is very symptomatic from her rectal cancer (pain and intermittent bleeding),it was discussed at her f/u on 12/19 to start with chemoradiation then chemotherapy -Plan is to start xeloda with concurrent RT. She was scheduled to meet with rad onc next week -Consult to radiation/oncology placed -As she is symptomatic from the rectal cancer, she would benefit from starting treatment inpatient -Xeloda was brought from home. We will start this upon initiating RT Anemia, secondary to malignancy -She has ongoing intermittent rectal bleeding -Labs on 12/19, showed hgb 9.9, iron sat 12%, ferritin 640 -Hgb stable in the 9 range -Continue parenteral iron, with goal of iron sat > 20%, for JOHN use as she is [employer] -Continue to monitor CBC Intractable pain -Patient was prescribed morphine ER 15 mg twice daily and Percocet 10/325 for pain control, but pain began to be poorly controlled on current regimen -Acute pain this morning resolved with additional 2 mg IV dose of morphine x 1 -Continue MS contin 30mg BID. Continue percocet for breakthrough pain, and IVP morphine 4 mg every 4 hours for severe breakthrough pain -If she has recurrent breakthrough pain despite the regimen above, we will consider increasing IV push morphine to 6 mg every 4 hours -Reports pain has significantly improved on current regimen -Experiencing constipation. Bowel regimen adjusted Intractable nausea -Continue zofran and compazine prn -Ativan 0.5mg TID added for anticipatory nausea -Increase oral intake as tolerated
[2024-12-25 15:47] VITALS: BMI 37.7
--- NOTE | 2024-12-25 15:56 | P.PN ---
Subjective Progress Note Date: 12/25/24 Patient was seen and examined. Reports constipation. Denies chest pain, SOB, palpitation. CBC, BMP significant for RBC 3.89, Hg 9.6, Hct 32.7, Plt 583, BUN 6.2, BUN/Cr 10.33. General: non toxic, no distress, appears at stated age Derm: warm, dry Head: atraumatic, normocephalic, symmetric Eyes: EOMI, no lid lag, anicteric sclera Mouth: no lip lesion, mucus membranes moist Cardiovascular: S1S2 reg, no murmur Lungs: Decreased BS bilateral, no rhonchi, no rales , no accessory muscle use Ext: no gross muscle atrophy, no edema, no contractures Neuro: no focal neuro deficits Psych: Alert, oriented, appropriate affect Based on my assessment of this patient, this patient meets a high complexity level of care. Intractable rectal pain secondary to rectal AC: MS Contin 30 mg PO BID. Morphine 4 mg IV Q4H PRN. Heme-Onc recommending inpatient RT. Rad-Onc consulted. Normocytic anemia due to rectal bleed: Ferric gluconate 125 mg IV QD. Trend CBC. Transfuse if Hg < 7. Thrombocytosis likely due to iron def. anemia Pneumonia: Continue Rocephin 2g IV QD. Completed 3 days of Azithromycin. Sputum Cx and Legionella Ag pending. Fibromyalgia: Cymbalta 60 mg PO QD. Gabapentin 300 mg PO BID. Anxiety and Insomnia: Vistaril 25 mg PO BID. Trazodone 100 mg PO QHS. DM: ISS + Accuchecks ACHS along with hypoglycemic precautions. HTN: Hyzaar 50-12.5 mg PO QD. Resolved: HypoNa CODE STATUS: FULL CODE DVT Prophylaxis: SCD GI Prophylaxis: Pepcid 20 mg PO BID. Designated medical POA if patient is not able to make medical decisions for themselves: I have reviewed the following surgical consultant notes: Oncology. I have reviewed the results of the following tests: CBC, BMP I have ordered the following tests: CBC I have discussed the care of this patient with the following independent historian: ARSLAN. I have independently interpreted the following test below: I have discussed the management of this patient with the following physician: Objective - Vital Signs Vital signs: Vital Signs Temp 98.4 F 12/25/24 13:48 Pulse 74 06/23/25 13:48 Resp 17 12/25/24 13:48 BP 113/62 12/25/24 13:48 Pulse Ox 96 12/25/24 13:48 FiO2 Intake & Output 12/24/24 12/25/24 12/25/24 18:59 06:59 18:59 Intake Total 275 Balance 275 Weight 109.316 kg Intake: Oral 275 Other: Voiding Method Toilet Toilet # Voids 1 4 # Bowel Movements 2 - Labs CBC & Chem 7: 12/25/24 02:29 12/25/24 02:29 Labs: Abnormal Lab Results - Last 24 Hours (Table) 12/24/24 12/25/24 12/25/24 Range/Units 20:40 02:29 02:29 RBC 3.89 L (4.10-5.20) X 10*6/uL Hgb 9.6 L (12.0-15.0) g/dL Hct 32.7 L (37.2-46.3) % MCH 24.7 L (27.0-32.0) pg MCHC 29.4 L (32.0-37.0) g/dL RDW 18.0 H (11.5-14.5) % Plt Count 583 H (140-440) X 10*3/uL MPV 8.1 L (9.5-12.2) FL BUN 6.2 L (9.0-27.0) mg/dL BUN/Creatinine Ratio 10.33 L (12.00-20.00) Ratio POC Glucose (mg/dL) 113 H (70-110) mg/dL Microbiology - Last 24 Hours (Table) 12/22/24 09:41 Urine Culture - Final Urine,Voided Escherichia coli
[2024-12-25] MEDS: polyethylene glycoL 3350 17 GM POWD.PACK PO PRN (16:46)
[2024-12-25 16:51] LABS: Glucose,Whole Blood 90 mg/dL (70-110)
[2024-12-25 21:02] LABS: Glucose,Whole Blood 109 mg/dL (70-110)
[2024-12-26 03:56] LABS: HCT 27.6 % (37.2-46.3); HGB 8.7 g/dL (12.0-15.0); MCH 25.5 pg (27.0-32.0); MCHC 31.5 g/dL (32.0-37.0); MCV 80.9 fL (80.0-97.0); Mean Platelet Volume 7.8 fL (9.5-12.2); Platelet Count 456 10*3/uL (140-440); RBC 3.41 10*6/uL (4.10-5.20); RDW 17.6 % (11.5-14.5); WBC 9.13 10*3/uL (4.50-10.00)
[2024-12-26 06:10] LABS: Glucose,Whole Blood 75 mg/dL (70-110)
[2024-12-26] MEDS: LORazepam 1 MG/0.5 ML VIAL IV PRN (11:10)
[2024-12-26 12:00] LABS: Glucose,Whole Blood 93 mg/dL (70-110)
--- NOTE | 2024-12-26 12:23 | P.PN ---
Subjective Progress Note Date: 12/26/24 Patient was seen and examined. Reports rectal pain. Awaiting Rad-Onc recommendations. CBC significant for RBC 3.41, Hg 8.7, Hct 27.5, Plt 456. General: non toxic, no distress, appears at stated age Derm: warm, dry Head: atraumatic, normocephalic, symmetric Eyes: EOMI, no lid lag, anicteric sclera Mouth: no lip lesion, mucus membranes moist Cardiovascular: good distal perfusion in all 4 extremities Lungs: breathing comfortably, no accessory muscle use Ext: no gross muscle atrophy, no edema, no contractures Neuro: no focal neuro deficits Psych: Alert, oriented, appropriate affect Based on my assessment of this patient, this patient meets a high complexity level of care. Intractable rectal pain secondary to rectal AC: MS Contin 30 mg PO BID. Morphine 4 mg IV Q4H PRN. Heme-Onc recommending inpatient RT. Rad-Onc consulted. Normocytic anemia due to rectal bleed: Ferric gluconate 125 mg IV QD. Trend CBC. Transfuse if Hg < 7. Thrombocytosis likely due to iron def. anemia Pneumonia + UTI: Completed 4 days of Rocephin. Completed 3 days of Azithromycin. Sputum Cx and Legionella Ag pending. UCx E. coli. Fibromyalgia: Cymbalta 60 mg PO QD. Gabapentin 300 mg PO BID. Anxiety and Insomnia: Vistaril 25 mg PO BID. Trazodone 100 mg PO QHS. DM: ISS + Accuchecks ACHS along with hypoglycemic precautions. HTN: Hyzaar 50-12.5 mg PO QD. Resolved: HypoNa CODE STATUS: FULL CODE DVT Prophylaxis: SCD GI Prophylaxis: Pepcid 20 mg PO BID. Designated medical POA if patient is not able to make medical decisions for themselves: I have reviewed the following garden consultant notes: Oncology. I have reviewed the results of the following tests: CBC I have ordered the following tests: CBC I have discussed the care of this patient with the following independent historian: ARSLNA. I have independently interpreted the following test below: I have discussed the management of this patient with the following physician: Jc Norris NP Objective - Vital Signs Vital signs: Vital Signs Temp 97.8 F 12/26/24 07:19 Pulse 75 12/26/24 07:19 Resp 17 12/26/24 07:19 BP 117/66 12/26/24 07:19 Pulse Ox 91 L 12/26/24 07:19 FiO2 Intake & Output 12/25/24 12/26/24 12/26/24 18:59 06:59 18:59 Weight 109.316 kg Other: Voiding Method Toilet Toilet Toilet # Voids 2 1 # Bowel Movements 2 1 - Labs CBC & Chem 7: 12/26/24 03:16 12/25/24 02:29 Labs: Abnormal Lab Results - Last 24 Hours (Table) 12/26/24 Range/Units 03:16 RBC 3.41 L (4.10-5.20) 10*6/uL Hgb 8.7 L (12.0-15.0) g/dL Hct 27.6 L (37.2-46.3) % MCH 25.5 L (27.0-32.0) pg MCHC 31.5 L (32.0-37.0) g/dL RDW 17.6 H (11.5-14.5) % Plt Count 456 H (140-440) 10*3/uL MPV 7.8 L (9.5-12.2) fL
--- NOTE | 2024-12-26 16:17 | P.CONS ---
History of Present Illness - Reason for Consult Consult date: 12/26/24 Rectal cancer Requesting physician: Oj Rodriguez - Chief Complaint "I have rectal pain" - History of Present Illness Ms. Yao is a 74-year-old female with a stage IIIB (cT3, cN2a, cM0) adenocarcinoma of the distal rectum. She presents with intractable rectal pain. Her pertinent history begins with BRBPR earlier this year. CT A/P in 10/2024 demonstrated nonfocal rectal thickening. Colonoscopy on 10/16/2024 demonstrated a rectal mass 4 cm from the anal verge with 70% obstruction. Pathology demonstrated adenocarcinoma with intact MMR. PET/CT was negative for metastatic disease. There was profound uptake in the distal rectum with additional mesorectal and presacral nodes with less uptake. She is now hospitalized with intractable rectal pain. She notes mild inter mittent BRBPR. Of note, she was simulated for treatment at [facility], but wishes to receive treatment closer to home. She had been planned for ADAMA with chemoradiation with Xeloda. Review of Systems as per HPI Past Medical History Past Medical History: Asthma, Diabetes Mellitus, Fibromyalgia, Hypertension, Osteoarthritis (OA), Sleep Apnea/CPAP/BIPAP Additional Past Medical History / Comment(s): IBS, HX POLYPS, STATES NOT CURRENTLY TAKING ANY MEDS FOR DIABETES BUT HAS IN PAST, HAS HEEL SPUR ON LEFT FOOT, CURRENTLY USING A CRUTCH History of Any Multi-Drug Resistant Organisms: None Reported Past Surgical History: Bowel Resection, Hysterectomy, Joint Replacement, Orthopedic Surgery Additional Past Surgical History / Comment(s): COLECTOMY for polyps, LEFT KNEE REPLACEMENT, RT ROTATOR CUFF Past Anesthesia/Blood Transfusion Reactions: No Reported Reaction Past Psychological History: Anxiety, Depression Smoking Status: Never smoker Past Alcohol Use History: None Reported Past Drug Use History: None Reported - Past Family History Father Family Medical History: Cancer Additional Family Medical History / Comment(s): Father at age 79 from lymphoma. Mother Family Medical History: Cancer Additional Family Medical History / Comment(s): Mother at age 82 from colon cancer. Brother(s) Additional Family Medical History / Comment(s): Patient has 1 brother with no major medical problems. Patient does not have any sisters. She has one son that is healthy. Medications and Allergies Home Medications Medication Instructions Recorded Confirmed Type DULoxetine HCL [Cymbalta] 60 mg PO DAILY 11/04/23 12/22/24 History traZODone HCL [Desyrel] 100 mg PO HS 11/04/23 12/22/24 History Loratadine 10 mg PO DAILY 10/04/24 12/22/24 History Montelukast [Singulair] 10 mg PO DAILY 10/04/24 12/22/24 History Gabapentin [Neurontin] 300 mg PO BID 10/16/24 12/22/24 History Potassium Chloride [Klor-Con 8] 8 meq PO DAILY 10/16/24 12/22/24 History Capecitabine 500mg Tablet 1 dose PO DIRECTED 12/22/24 12/22/24 History Garlic Oil 2mg Capsule 1 cap PO DAILY 12/22/24 12/22/24 History Losartan/Hydrochlorothiazide 1 tab PO DAILY 12/22/24 12/22/24 History [Hyzaar 100-25 Tablet] Morphine Sulfate ER [Ms Contin] 15 mg PO Q12HR 12/22/24 12/22/24 History hydrOXYzine pamoate [Vistaril] 25 mg PO BID 12/22/24 12/22/24 History oxyCODONE-APAP 10-325MG [Percocet 1 tab PO QID PRN 12/22/24 12/22/24 History 10-325 mg] Allergies Allergy/AdvReac Type Severity Reaction Status Date / Time fluticasone furoate Allergy "Respiratory Verified 12/21/24 20:22 [From Breo Ellipta] Issues" nickel [Nickel] Allergy Rash/Hives Verified 12/21/24 20:22 vilanterol Allergy "Respiratory Verified 12/21/24 20:22 [From Breo Ellipta] Issues" Physical Exam Vitals: Vital Signs Temp Pulse Resp BP Pulse Ox 12/26/24 13:33 98.5 F 84 18 132/79 97 12/26/24 07:19 97.8 F 75 17 117/66 91 L 12/26/24 01:02 98.5 F 79 17 114/64 97 12/25/24 19:08 98.8 F 76 16 138/66 97 Intake and Output 12/26/24 12/26/24 12/26/24 06:59 14:59 22:59 Other: Voiding Method Toilet # Voids 1 # Bowel Movements 1 - Constitutional General appearance: no acute distress - Respiratory Respiratory: negative: prolonged expiration, prolonged inspiration Results CBC & Chem 7: 12/26/24 03:16 12/25/24 02:29 Labs: Abnormal Lab Results - Last 24 Hours (Table) 12/26/24 Range/Units 03:16 RBC 3.41 L (4.10-5.20) 10*6/uL Hgb 8.7 L (12.0-15.0) g/dL Hct 27.6 L (37.2-46.3) % MCH 25.5 L (27.0-32.0) pg MCHC 31.5 L (32.0-37.0) g/dL RDW 17.6 H (11.5-14.5) % Plt Count 456 H (140-440) 10*3/uL MPV 7.8 L (9.5-12.2) fL Assessment and Plan Assessment: Ms. Yao is a 74-year-old female with a stage IIIB (cT3, cN2a, cM0) adenocarcinoma of the distal rectum. She presents with intractable rectal pain. Plan: The patient presents with a locally advanced rectal cancer. She has discussed ADAMA with Dr. Gonzalez, with treatment to commence with chemoradiation. She is now unsure if she wishes to pursue curative treatment, and mentions hospice. I explained that her options at this juncture include long-course radiotherapy (~6 weeks) with Xeloda versus palliative radiation to improve pain and prevent obstruction. She will discuss this with her son. I will tentatively put her on for CT simulation on . Reji Drake MD Radiation Oncology Time with Patient: Greater than 30
[2024-12-26 16:47] LABS: Glucose,Whole Blood 91 mg/dL (70-110)
[2024-12-26 21:13] LABS: Glucose,Whole Blood 104 mg/dL (70-110)
[2024-12-27 06:13] LABS: Glucose,Whole Blood 91 mg/dL (70-110)
[2024-12-27 10:44] LABS: HCT 29.4 % (37.2-46.3); HGB 9.5 g/dL (12.0-15.0); MCHC 32.3 g/dL (32.0-37.0); MCV 80.3 fL (80.0-97.0); Platelet Count 474 10*3/uL (140-440); RBC 3.66 10*6/uL (4.10-5.20); RDW 17.6 % (11.5-14.5); WBC 9.45 10*3/uL (4.50-10.00)
[2024-12-27 11:28] LABS: Glucose,Whole Blood 84 mg/dL (70-110)
--- NOTE | 2024-12-27 13:37 | P.PN ---
Subjective Progress Note Date: 12/27/24 Patient was seen and examined. Reports rectal pain. Rad-Onc plans on CT stimulation on . CBC significant for RBC 3.66, Hg 9.5, Hct 29.4, Plt 474. General: non toxic, no distress, appears at stated age Derm: warm, dry Head: atraumatic, normocephalic, symmetric Eyes: EOMI, no lid lag, anicteric sclera Mouth: no lip lesion, mucus membranes moist Cardiovascular: good distal perfusion in all 4 extremities Lungs: breathing comfortably, no accessory muscle use Ext: no gross muscle atrophy, no edema, no contractures Neuro: no focal neuro deficits Psych: Alert, oriented, appropriate affect Based on my assessment of this patient, this patient meets a high complexity level of care. Intractable rectal pain secondary to rectal AC: MS Contin 30 mg PO BID. Morphine 4 mg IV Q4H PRN. Heme-Onc recommending inpatient RT. Rad-Onc on board, plans for CT stimulation . Normocytic anemia due to rectal bleed: Ferric gluconate 125 mg IV QD. Trend CBC. Transfuse if Hg < 7. Thrombocytosis likely due to iron def. anemia Pneumonia + UTI: Completed 4 days of Rocephin. Completed 3 days of Azithromycin. Sputum Cx and Legionella Ag pending. UCx E. coli. Fibromyalgia: Cymbalta 60 mg PO QD. Gabapentin 300 mg PO BID. Anxiety and Insomnia: Vistaril 25 mg PO BID. Trazodone 100 mg PO QHS. DM: ISS + Accuchecks ACHS along with hypoglycemic precautions. HTN: Hyzaar 50-12.5 mg PO QD. Resolved: HypoNa CODE STATUS: FULL CODE DVT Prophylaxis: SCD GI Prophylaxis: Pepcid 20 mg PO BID. Designated medical POA if patient is not able to make medical decisions for themselves: I have reviewed the following personnel consultant notes: Oncology, Rad-Onc. I have reviewed the results of the following tests: CBC I have ordered the following tests: CBC I have discussed the care of this patient with the following independent historian: I have independently interpreted the following test below: I have discussed the management of this patient with the following physician: Objective - Vital Signs Vital signs: Vital Signs Temp 98.9 F 12/27/24 07:25 Pulse 73 12/27/24 09:24 Resp 18 12/27/24 09:24 BP 109/55 12/27/24 07:25 Pulse Ox 97 12/27/24 07:25 FiO2 Intake & Output 12/26/24 12/27/24 12/27/24 18:59 06:59 18:59 Other: Voiding Method Toilet Toilet Toilet # Voids 3 1 # Bowel Movements 2 - Labs CBC & Chem 7: 12/27/24 10:13 12/25/24 02:29 Labs: Abnormal Lab Results - Last 24 Hours (Table) 12/27/24 Range/Units 10:13 RBC 3.66 L (4.10-5.20) 10*6/uL Hgb 9.5 L (12.0-15.0) g/dL Hct 29.4 L (37.2-46.3) % MCH 26.0 L (27.0-32.0) pg RDW 17.6 H (11.5-14.5) % Plt Count 474 H (140-440) 10*3/uL MPV 8.0 L (9.5-12.2) fL
[2024-12-27 16:37] LABS: Glucose,Whole Blood 91 mg/dL (70-110)
--- NOTE | 2024-12-27 17:30 | P.PN ---
Subjective Progress Note Date: 12/27/24 No acute events overnight. Reports rectal pain controlled on current regimen. Hgb stable 9.5 Objective - Vital Signs Vital signs: Vital Signs Temp 98.9 F 12/27/24 07:25 Pulse 73 12/27/24 09:24 Resp 18 12/27/24 09:24 BP 109/55 12/27/24 07:25 Pulse Ox 97 12/27/24 07:25 FiO2 Intake & Output 12/26/24 12/27/24 12/27/24 18:59 06:59 18:59 Other: Voiding Method Toilet Toilet Toilet # Voids 3 1 # Bowel Movements 2 - Constitutional General appearance: Present: no acute distress, obese - EENT Eyes: Present: anicteric sclerae, EOMI ENT: Present: hearing grossly normal - Respiratory Details: breathing is even and unlabored - Cardiovascular Details: skin warm and dry - Gastrointestinal General gastrointestinal: Present: soft. Absent: tenderness - Integumentary Integumentary: Absent: cyanotic - Psychiatric Psychiatric: Present: A&O x's 3 - Labs CBC & Chem 7: 12/27/24 10:13 12/25/24 02:29 Labs: Abnormal Lab Results - Last 24 Hours (Table) 12/27/24 Range/Units 10:13 RBC 3.66 L (4.10-5.20) 10*6/uL Hgb 9.5 L (12.0-15.0) g/dL Hct 29.4 L (37.2-46.3) % MCH 26.0 L (27.0-32.0) pg RDW 17.6 H (11.5-14.5) % Plt Count 474 H (140-440) 10*3/uL MPV 8.0 L (9.5-12.2) fL Assessment and Plan (1) Intractable nausea Current Visit: Yes Status: Acute Code(s): R11.0 - NAUSEA SNOMED Code(s): 507388053 (2) Intractable pain Current Visit: Yes Status: Acute Code(s): R52 - PAIN, UNSPECIFIED SNOMED Code(s): 06515265 (3) Anemia Current Visit: Yes Status: Acute Priority: High Code(s): D64.9 - ANEMIA, UNSPECIFIED SNOMED Code(s): 765174549 (4) Rectal cancer Current Visit: Yes Status: Acute Priority: High Code(s): C20 - MALIGNANT NEOPLASM OF RECTUM SNOMED Code(s): 373561547 Plan: Stage III rectal adenocarcinoma -Oncology history as dictated in the HPI -Since patient is very symptomatic from her rectal cancer (pain and intermittent bleeding),it was discussed at her f/u on 12/19 to start with chemoradiation then chemotherapy -Plan is to start xeloda with concurrent RT. She was scheduled to meet with rad onc next week -Consult to radiation/oncology placed -As she is symptomatic from the rectal cancer, she would benefit from starting treatment inpatient -Xeloda was brought from home. Plan was to begin upon initiating RT. Pt now not certain if she wants to proceed with chemo. States for now she is just starting to improve and does not want to take to the xeloda, feels she is too weak to do both chemo and XRT. Discussed possible side effects with Xeloda. Further discussed that if she just wants to just proceed with RT at this time, agree with Dr. Drake that we should do short course of palliative radiation, and we will schedule clinic f/u to further discuss treatment options. She is agreeable only to radiation at this time Anemia, secondary to malignancy -She has ongoing intermittent rectal bleeding -Labs on 12/19, showed hgb 9.9, iron sat 12%, ferritin 640 -Hgb stable in the 9 range -Continue parenteral iron, with goal of iron sat > 20%, for JOHN use as she is [employer] -Continue to monitor CBC Intractable pain -Patient was prescribed morphine ER 15 mg twice daily and Percocet 10/325 for pain control, but pain began to be poorly controlled on current regimen -Acute pain this morning resolved with additional 2 mg IV dose of morphine x 1 -Continue MS contin 30mg BID. Continue percocet for breakthrough pain, and IVP morphine 4 mg every 4 hours for severe breakthrough pain -Reports pain has significantly improved on current regimen -Experiencing constipation. Bowel regimen adjusted Intractable nausea -Continue zofran and compazine prn -Ativan 0.5mg TID added for anticipatory nausea -Increase oral intake as tolerated -Symptoms improving
[2024-12-27] MEDS: TRANEXAMIC 1,000 MG/100ML-NACL 1,000 MG in SALINE 1 100ML.BAG IVPB ONE (18:01)
[2024-12-27 20:25] LABS: Glucose,Whole Blood 89 mg/dL (70-110)
[2024-12-28 05:39] LABS: HCT 27.6 % (37.2-46.3); HGB 8.8 g/dL (12.0-15.0); MCH 25.4 pg (27.0-32.0); MCHC 31.9 g/dL (32.0-37.0); MCV 79.5 fL (80.0-97.0); Mean Platelet Volume 7.9 fL (9.5-12.2); Platelet Count 467 10*3/uL (140-440); RBC 3.47 10*6/uL (4.10-5.20); RDW 17.6 % (11.5-14.5); WBC 7.94 10*3/uL (4.50-10.00)
[2024-12-28 06:10] LABS: Glucose,Whole Blood 91 mg/dL (70-110)
[2024-12-28 11:43] LABS: Glucose,Whole Blood 86 mg/dL (70-110)
[2024-12-28] MEDS ORDERED: DOCUSATE 100 MG CAP PO PRN (12:21)
--- NOTE | 2024-12-28 15:17 | P.PN ---
Subjective Progress Note Date: 12/28/24 Patient was seen and examined. Reports rectal pain. Rad-Onc plans on CT stimulation on . CBC significant for RBC 3.47, Hg 8.8, Hct 27.6, MCV 79.5, Plt 467. General: non toxic, no distress, appears at stated age Derm: warm, dry Head: atraumatic, normocephalic, symmetric Eyes: EOMI, no lid lag, anicteric sclera Mouth: no lip lesion, mucus membranes moist Cardiovascular: good distal perfusion in all 4 extremities Lungs: breathing comfortably, no accessory muscle use Ext: no gross muscle atrophy, no edema, no contractures Neuro: no focal neuro deficits Psych: Alert, oriented, appropriate affect Based on my assessment of this patient, this patient meets a high complexity level of care. Intractable rectal pain secondary to rectal AC: MS Contin 30 mg PO BID. Morphine 4 mg IV Q4H PRN. Heme-Onc recommending inpatient RT. Rad-Onc on board, plans for CT stimulation today. Normocytic anemia due to rectal bleed: Ferric gluconate 125 mg IV QD. Trend CBC. Transfuse if Hg < 7. Thrombocytosis likely due to iron def. anemia Pneumonia + UTI: Completed 4 days of Rocephin. Completed 3 days of Azithromycin. Sputum Cx and Legionella Ag pending. UCx E. coli. Fibromyalgia: Cymbalta 60 mg PO QD. Gabapentin 300 mg PO BID. Anxiety and Insomnia: Vistaril 25 mg PO BID. Trazodone 100 mg PO QHS. DM: ISS + Accuchecks ACHS along with hypoglycemic precautions. HTN: Hyzaar 50-12.5 mg PO QD. Resolved: HypoNa CODE STATUS: FULL CODE DVT Prophylaxis: SCD GI Prophylaxis: Pepcid 20 mg PO BID. Designated medical POA if patient is not able to make medical decisions for themselves: I have reviewed the following technical sales consultant notes: Oncology, Rad-Onc. I have reviewed the results of the following tests: CBC I have ordered the following tests: CBC I have discussed the care of this patient with the following independent historian: I have independently interpreted the following test below: I have discussed the management of this patient with the following physician: Objective - Vital Signs Vital signs: Vital Signs Temp 99.2 F 12/28/24 07:58 Pulse 77 12/28/24 08:00 Resp 18 12/28/24 08:00 BP 111/57 12/28/24 07:58 Pulse Ox 99 12/28/24 07:58 FiO2 Intake & Output 12/27/24 12/28/24 12/28/24 18:59 06:59 18:59 Weight 109.316 kg Other: Voiding Method Toilet Toilet Toilet # Voids 2 2 - Labs CBC & Chem 7: 12/28/24 04:57 12/25/24 02:29 Labs: Abnormal Lab Results - Last 24 Hours (Table) 12/28/24 Range/Units 04:57 RBC 3.47 L (4.10-5.20) 10*6/uL Hgb 8.8 L (12.0-15.0) g/dL Hct 27.6 L (37.2-46.3) % MCV 79.5 L (80.0-97.0) fL MCH 25.4 L (27.0-32.0) pg MCHC 31.9 L (32.0-37.0) g/dL RDW 17.6 H (11.5-14.5) % Plt Count 467 H (140-440) 10*3/uL MPV 7.9 L (9.5-12.2) fL
[2024-12-28 17:17] LABS: Glucose,Whole Blood 105 mg/dL (70-110)
--- NOTE | 2024-12-28 18:27 | P.PN ---
Subjective Progress Note Date: 12/28/24 Pt having diarrhea, per RN, there was rectal bleeding noted last night. Hgb today 8.8. Pt scheduled for simulation today. Reporting pain is controlled on current regimen Objective - Vital Signs Vital signs: Vital Signs Temp 99.2 F 12/28/24 07:58 Pulse 77 12/28/24 08:00 Resp 18 12/28/24 08:00 BP 111/57 12/28/24 07:58 Pulse Ox 99 12/28/24 07:58 FiO2 Intake & Output 12/27/24 12/28/24 12/28/24 18:59 06:59 18:59 Weight 109.316 kg Other: Voiding Method Toilet Toilet Toilet # Voids 2 2 - Constitutional General appearance: Present: no acute distress - EENT Eyes: Present: anicteric sclerae, EOMI ENT: Present: hearing grossly normal - Respiratory Details: breathing is even and unlabored - Cardiovascular Details: skin warm and dry - Psychiatric Psychiatric: Present: A&O x's 3 - Labs CBC & Chem 7: 12/28/24 04:57 12/25/24 02:29 Labs: Abnormal Lab Results - Last 24 Hours (Table) 12/28/24 Range/Units 04:57 RBC 3.47 L (4.10-5.20) 10*6/uL Hgb 8.8 L (12.0-15.0) g/dL Hct 27.6 L (37.2-46.3) % MCV 79.5 L (80.0-97.0) fL MCH 25.4 L (27.0-32.0) pg MCHC 31.9 L (32.0-37.0) g/dL RDW 17.6 H (11.5-14.5) % Plt Count 467 H (140-440) 10*3/uL MPV 7.9 L (9.5-12.2) fL Assessment and Plan (1) Intractable nausea Current Visit: Yes Status: Acute Code(s): R11.0 - NAUSEA SNOMED Code(s): 724902706 (2) Intractable pain Current Visit: Yes Status: Acute Code(s): R52 - PAIN, UNSPECIFIED SNOMED Code(s): 67338466 (3) Anemia Current Visit: Yes Status: Acute Priority: High Code(s): D64.9 - ANEMIA, UNSPECIFIED SNOMED Code(s): 859243567 (4) Rectal cancer Current Visit: Yes Status: Acute Priority: High Code(s): C20 - MALIGNANT NEOPLASM OF RECTUM SNOMED Code(s): 692821094 Plan: Stage III rectal adenocarcinoma -Oncology history as dictated in the HPI -Since patient is very symptomatic from her rectal cancer (pain and intermittent bleeding),it was discussed at her f/u on 12/19 to start with chemoradiation then chemotherapy -Plan is to start xeloda with concurrent RT. She was scheduled to meet with rad onc next week -Consult to radiation/oncology placed -As she is symptomatic from the rectal cancer, she would benefit from starting treatment inpatient -Xeloda was brought from home. Plan was to begin xeloda upon initiating RT. Pt now not certain if she wants to proceed with chemo. States for now she is just starting to feel improved and does not want to take to the xeloda, feels she is too weak to do both chemo and XRT. Discussed possible side effects with Xeloda, as well as curative intent. Further discussed that if she just wants to just proceed with RT at this time, agree with Dr. Drake that we should do short course of palliative radiation, and we will schedule clinic f/u to further discuss treatment options. She is agreeable only to radiation at this time. Clinic f/u scheduled on 01/[address] Gonzalez Anemia, secondary to malignancy -She has ongoing intermittent rectal bleeding -Labs on 12/19, showed hgb 9.9, iron sat 12%, ferritin 640 -Hgb stable in the 9 range -Continue parenteral iron, with goal of iron sat > 20%, for JOHN use as she is [employer] -Continue to monitor CBC Intractable pain -Patient was prescribed morphine ER 15 mg twice daily and Percocet 10/325 for pain control, but pain began to be poorly controlled on current regimen -Acute pain this morning resolved with additional 2 mg IV dose of morphine x 1 -Continue MS contin 30mg BID. Continue percocet for breakthrough pain, and IVP morphine 4 mg every 4 hours for severe breakthrough pain -Reports pain has significantly improved on current regimen -Experiencing constipation. Bowel regimen adjusted Intractable nausea -Continue zofran and compazine prn -Increase oral intake as tolerated -Symptoms improving
[2024-12-28 20:21] LABS: Glucose,Whole Blood 92 mg/dL (70-110)
[2024-12-28 20:21] LABS: Glucose,Whole Blood 173 mg/dL (70-110)
[2024-12-28] MEDS: ALPRAZolam 0.25 MG TAB PO PRN (22:01)
[2024-12-29 07:07] LABS: Glucose,Whole Blood 74 mg/dL (70-110)
[2024-12-29 08:27] LABS: Basophils # (A) 0.03 X 10*3/uL (0.00-0.10); Basophils % (A) 0.4 %; Eosinophils # (A) 0.22 X 10*3/uL (0.04-0.35); Eosinophils % (A) 3.2 %; HCT 30.3 % (37.2-46.3); HGB 9.1 g/dL (12.0-15.0); Lymphocytes # (A) 1.99 X 10*3/uL (0.90-5.00); Lymphocytes % (A) 28.8 %; MCH 25.2 pg (27.0-32.0); MCV 83.9 FL (80.0-97.0); Mean Platelet Volume 8.1 FL (9.5-12.2); Monocytes # (A) 0.87 X 10*3/uL (0.20-1.00); Monocytes % (A) 12.6 %; NRBC Per 100 WBC 0 X 10*3/uL (0.00-0.01); Neutrophils # (A) 3.76 X 10*3/uL (1.80-7.70); Neutrophils % (A) 54.4 %; Platelet Count 442 X 10*3/uL (140-440); RBC 3.61 X 10*6/uL (4.10-5.20); RDW 18.1 % (11.5-14.5); WBC 6.91 X 10*3/uL (4.50-10.00)
[2024-12-29 11:48] LABS: Glucose,Whole Blood 73 mg/dL (70-110)
--- NOTE | 2024-12-29 16:24 | P.PN ---
Subjective Progress Note Date: 12/29/24 Patient was seen and examined. Reports rectal pain. Awaiting final Rad-Onc plans. CBC significant for RBC 3.61, Hg 9.1, Hct 30.3, Plt 442. General: non toxic, no distress, appears at stated age Derm: warm, dry Head: atraumatic, normocephalic, symmetric Eyes: EOMI, no lid lag, anicteric sclera Mouth: no lip lesion, mucus membranes moist Cardiovascular: good distal perfusion in all 4 extremities Lungs: breathing comfortably, no accessory muscle use Ext: no gross muscle atrophy, no edema, no contractures Neuro: no focal neuro deficits Psych: Alert, oriented, appropriate affect Based on my assessment of this patient, this patient meets a high complexity level of care. Intractable rectal pain secondary to rectal AC: MS Contin 30 mg PO BID. Morphine 4 mg IV Q4H PRN. Heme-Onc recommending inpatient RT. Rad-Onc on board. Normocytic anemia due to rectal bleed: Ferric gluconate 125 mg IV QD. Trend CBC. Transfuse if Hg < 7. Thrombocytosis likely due to iron def. anemia Pneumonia + UTI: Completed 4 days of Rocephin. Completed 3 days of Azithromycin. Sputum Cx and Legionella Ag pending. UCx E. coli. Fibromyalgia: Cymbalta 60 mg PO QD. Gabapentin 300 mg PO BID. Anxiety and Insomnia: Vistaril 25 mg PO BID. Trazodone 100 mg PO QHS. DM: ISS + Accuchecks ACHS along with hypoglycemic precautions. HTN: Hyzaar 50-12.5 mg PO QD. Resolved: HypoNa Awaiting final Rad Onc plans. Plans for DC tomorrow. CODE STATUS: FULL CODE DVT Prophylaxis: SCD GI Prophylaxis: Pepcid 20 mg PO BID. Designated medical POA if patient is not able to make medical decisions for themselves: I have reviewed the following oracle wms consultant notes: Oncology I have reviewed the results of the following tests: CBC I have ordered the following tests: I have discussed the care of this patient with the following independent histori an: RN. I have independently interpreted the following test below: I have discussed the management of this patient with the following physician: Jc Norris NP Objective - Vital Signs Vital signs: Vital Signs Temp 98.8 F 12/29/24 13:36 Pulse 79 12/29/24 13:36 Resp 18 12/29/24 13:36 BP 149/76 12/29/24 13:36 Pulse Ox 95 12/29/24 13:36 FiO2 Intake & Output 12/28/24 12/29/24 12/29/24 18:59 06:59 18:59 Other: Voiding Method Toilet # Voids 2 # Bowel Movements 2 - Labs CBC & Chem 7: 12/29/24 05:14 12/25/24 02:29 Labs: Abnormal Lab Results - Last 24 Hours (Table) 12/28/24 12/29/24 Range/Units 20:19 05:14 RBC 3.61 L (4.10-5.20) X 10*6/uL Hgb 9.1 L (12.0-15.0) g/dL Hct 30.3 L (37.2-46.3) % MCH 25.2 L (27.0-32.0) pg MCHC 30.0 L (32.0-37.0) g/dL RDW 18.1 H (11.5-14.5) % Plt Count 442 H (140-440) X 10*3/uL MPV 8.1 L (9.5-12.2) FL POC Glucose (mg/dL) 173 H (70-110) mg/dL
--- NOTE | 2024-12-29 16:54 | P.PN ---
Subjective Progress Note Date: 12/29/24 Pt has underwent simulation. Hgb stable at 9.1. Reporting pain is controlled on current regimen Objective - Vital Signs Vital signs: Vital Signs Temp 98.8 F 12/29/24 13:36 Pulse 79 12/29/24 13:36 Resp 18 12/29/24 13:36 BP 149/76 12/29/24 13:36 Pulse Ox 95 12/29/24 13:36 FiO2 Intake & Output 12/28/24 12/29/24 12/29/24 18:59 06:59 18:59 Other: Voiding Method Toilet # Voids 2 # Bowel Movements 2 - Constitutional General appearance: Present: no acute distress - EENT Eyes: Present: anicteric sclerae, EOMI ENT: Present: hearing grossly normal - Respiratory Details: breathing is even and unlabored - Cardiovascular Details: skin warm and dry - Gastrointestinal General gastrointestinal: Present: soft, tenderness - Integumentary Integumentary: Absent: cyanotic - Musculoskeletal Musculoskeletal: Present: strength equal bilaterally - Psychiatric Psychiatric: Present: A&O x's 3 - Labs CBC & Chem 7: 12/29/24 05:14 12/25/24 02:29 Labs: Abnormal Lab Results - Last 24 Hours (Table) 12/28/24 12/29/24 Range/Units 20:19 05:14 RBC 3.61 L (4.10-5.20) X 10*6/uL Hgb 9.1 L (12.0-15.0) g/dL Hct 30.3 L (37.2-46.3) % MCH 25.2 L (27.0-32.0) pg MCHC 30.0 L (32.0-37.0) g/dL RDW 18.1 H (11.5-14.5) % Plt Count 442 H (140-440) X 10*3/uL MPV 8.1 L (9.5-12.2) FL POC Glucose (mg/dL) 173 H (70-110) mg/dL Assessment and Plan (1) Intractable nausea Current Visit: Yes Status: Acute Code(s): R11.0 - NAUSEA SNOMED Code(s): 975044779 (2) Intractable pain Current Visit: Yes Status: Acute Code(s): R52 - PAIN, UNSPECIFIED SNOMED Code(s): 89812301 (3) Anemia Current Visit: Yes Status: Acute Priority: High Code(s): D64.9 - ANEMIA, UNSPECIFIED SNOMED Code(s): 523736410 (4) Rectal cancer Current Visit: Yes Status: Acute Priority: High Code(s): C20 - MALIGNANT NEOPLASM OF RECTUM SNOMED Code(s): 626098416 Plan: Stage III rectal adenocarcinoma -Oncology history as dictated in the HPI -Since patient is very symptomatic from her rectal cancer (pain and intermittent bleeding),it was discussed at her f/u on 12/19 to start with chemoradiation then chemotherapy -Plan is to start xeloda with concurrent RT. She was scheduled to meet with rad onc next week -Consult to radiation/oncology placed -As she is symptomatic from the rectal cancer, she would benefit from starting treatment inpatient -Xeloda was brought from home. Plan was to begin xeloda upon initiating RT. Pt now not certain if she wants to proceed with chemo. States for now she is just starting to feel improved and does not want to take to the xeloda, feels she is too weak to do both chemo and XRT. Discussed possible side effects with Xeloda, as well as curative intent. Further discussed that if she just wants to just proceed with RT at this time, agree with Dr. Drake that we should do short course of palliative radiation, and we will schedule clinic f/u to further discuss treatment options. She is agreeable only to radiation at this time. Clinic f/u scheduled on 01/[address] Gonzalez Anemia, secondary to malignancy -She has ongoing intermittent rectal bleeding -Labs on 12/19, showed hgb 9.9, iron sat 12%, ferritin 640 -Hgb stable in the 9 range -Continue parenteral iron, with goal of iron sat > 20%, for JOHN use as she is [employer] -Continue to monitor CBC Intractable pain -Patient was prescribed morphine ER 15 mg twice daily and Percocet 10/325 for pain control, but pain began to be poorly controlled on current regimen -Acute pain this morning resolved with additional 2 mg IV dose of morphine x 1 -Continue MS contin 30mg BID. Continue percocet for breakthrough pain, and IVP morphine 4 mg every 4 hours for severe breakthrough pain -Reports pain has significantly improved on current regimen -Experiencing constipation. Bowel regimen adjusted Intractable nausea -Continue zofran and compazine prn -Increase oral intake as tolerated -Symptoms improving Discussed case with admitting team, pt is cleared for discharge from oncology standpoint
[2024-12-29 17:01] LABS: Glucose,Whole Blood 90 mg/dL (70-110)
[2024-12-29 20:34] LABS: Glucose,Whole Blood 107 mg/dL (70-110)
[2024-12-29] MEDS: LOPERAMIDE 2 MG CAP PO PRN (22:46)
[2024-12-30 06:13] LABS: Glucose,Whole Blood 89 mg/dL (70-110)
[2024-12-30] MEDS: LORATADINE 10 MG TAB PO SCH (07:44)
[2024-12-30 08:08] VITALS: BP 94/54; PULSE 69; RESP 18; TEMP 98.7
[2024-12-30 11:30] LABS: Glucose,Whole Blood 90 mg/dL (70-110)
--- NOTE | 2024-12-30 13:52 | P.DS ---
Providers Date of admission: 12/22/24 07:29 Expected date of discharge: 12/30/24 Attending physician: Agustina Calvillo MD Consults: 12/22/24 07:35 Consult Physician Urgent Consulting Provider: Chayito Gonzalez Consult Reason/Comments: rectal cancer Do you want consulting provider notified?: Yes, Notify in am 12/22/24 19:55 Consult Physician Routine Consulting Provider: Reji Drake Consult Reason/Comments: rectal bleeding/pain, hx rectal cancer Do you want consulting provider notified?: Yes Primary care physician: Stated None Hospital Course: 74 year old F with PMH rectal AC, chronic anemia due to bleeding hemorrhoids and rectal mass, fibromyalgia, IBS, DM and HTN presented to the ED for intractable rectal pain and nausea. Takes MS Contin 15 mg PO BID at home along with Percocet PRN. In the ED she underwent extensive evaluation. BP 127/62, HR 97, T 98.3F, RR 20, 99% on RA. CBC, Coag panel, CMP significant for WBC 10.15, RBC 3.82, Hg 9.7, Hct 30.3, MCV 79.3, Plt 525, Na 133. D-Dimer 0.99. Trop < 0.012. BNP 365. Lipase < 10. UA large LE with 22 WBCs. EKG sinus rhythm with no ST T wave changes. CTA chest showed RML PNA. Patient completed a course of Rocephin/Azithromycin for CAP. UCx grew E. coli which was covered with Rocephin as well. Heme-Onc consulted, MS Contin increased to 30 mg PO BID and given IV iron for iron def. anemia. Rad-Onc consulted, she underwent CT stimulation on 12/28. 12/30 Patient was seen and examined. Plans to initiate radiation treatment on January 02. Discharge Plans: Hemodynamically stable. Stop HCTZ and Losartan on discharge given borderline low BP. Prescribed MS Contin 30 mg PO BID x [address] Rodriguez to take over prescriptions in the outpatient setting. Follow up with PCP within 1-2 days of discharge, Rad-Onc + Oncology within 1 week of discharge. General: non toxic, no distress, appears at stated age Derm: warm, dry Head: atraumatic, normocephalic, symmetric Eyes: EOMI, no lid lag, anicteric sclera Mouth: no lip lesion, mucus membranes moist Cardiovascular: S1S2 reg. No murmurs Lungs: Clear to auscultation bilaterally, no accessory muscle use Ext: no gross muscle atrophy, no edema, no contractures Neuro: no focal neuro deficits Psych: Alert, oriented, appropriate affect Discharge Diagnosis: Intractable rectal pain secondary to rectal AC Normocytic anemia due to rectal bleed Thrombocytosis likely due to iron def. anemia Pneumonia + UTI Fibromyalgia Anxiety and Insomnia DM HTN Resolved: HypoNa This complex discharge took 35 minutes to complete. Patient Condition at Discharge: Stable Plan - Discharge Summary Discharge Rx Participant: No New Discharge Prescriptions: New Docusate [Colace] 100 mg PO BID PRN cap PRN Reason: Constipation Morphine Sulfate ER [Ms Contin] 30 mg PO Q12HR #14 tab Acetaminophen Tab [Tylenol] 650 mg PO Q6HR PRN tab PRN Reason: Mild Pain Or Fever > 100.5 Continue Loratadine 10 mg PO DAILY Gabapentin [Neurontin] 300 mg PO BID Potassium Chloride [Klor-Con 8] 8 meq PO DAILY oxyCODONE-APAP 10-325MG [Percocet 10-325 mg] 1 tab PO QID PRN PRN Reason: Pain hydrOXYzine pamoate [Vistaril] 25 mg PO BID Garlic Oil 2mg Capsule 1 cap PO DAILY Tranexamic Acid [Lysteda] 650 mg PO PRN PRN Reason: Bleeding traZODone HCL [Desyrel] 100 mg PO HS DULoxetine HCL [Cymbalta] 60 mg PO DAILY Montelukast [Singulair] 10 mg PO DAILY Capecitabine 500mg Tablet 1 dose PO DIRECTED Discontinued Losartan/Hydrochlorothiazide [Hyzaar 100-25 Tablet] 1 tab PO DAILY Morphine Sulfate ER [Ms Contin] 15 mg PO Q12HR Discharge Medication List DULoxetine HCL [Cymbalta] 60 mg PO DAILY 11/04/23 [History] traZODone HCL [Desyrel] 100 mg PO HS 11/04/23 [History] Loratadine 10 mg PO DAILY 10/04/24 [History] Montelukast [Singulair] 10 mg PO DAILY 10/04/24 [History] Gabapentin [Neurontin] 300 mg PO BID 10/16/24 [History] Potassium Chloride [Klor-Con 8] 8 meq PO DAILY 10/16/24 [History] Capecitabine 500mg Tablet 1 dose PO DIRECTED 12/22/24 [History] Garlic Oil 2mg Capsule 1 cap PO DAILY 12/22/24 [History] hydrOXYzine pamoate [Vistaril] 25 mg PO BID 12/22/24 [History] oxyCODONE-APAP 10-325MG [Percocet 10-325 mg] 1 tab PO QID PRN 12/22/24 [History] Tranexamic Acid [Lysteda] 650 mg PO PRN 12/27/24 [History] Acetaminophen Tab [Tylenol] 650 mg PO Q6HR PRN tab 12/30/24 [Rx] Docusate [Colace] 100 mg PO BID PRN cap 12/30/24 [Rx] Morphine Sulfate ER [Ms Contin] 30 mg PO Q12HR #14 tab 12/30/24 [Rx] Follow up Appointment(s)/Referral(s): Oj Rodriguez MD [STAFF PHYSICIAN] - 1 Week Reji Drake MD [STAFF PHYSICIAN] - 1 Week [facility] [NON-STAFF] - 1-2 Days Discharge/Stand Alone Forms: Area PCPs Discharge Disposition: HOME SELF-CARE
== END 2024-12-30 16:32 | disposition home or self-care (01) | DRG 374 ==
LOC: EC 20:15 → 4SSUR 12-22 07:29
PROVIDERS: ADMIT Student in an Organized Health Care Education/Training Program; ATTEND Student in an Organized Health Care Education/Training Program
DX: C20 Malignant neoplasm of rectum (principal); J18.9 Pneumonia, unspecified organism; E87.1 Hypo-osmolality and hyponatremia; D50.0 Iron deficiency anemia secondary to blood loss (chronic); E11.9 Type 2 diabetes mellitus without complications; B96.20 Unspecified Escherichia coli [E. coli] as the cause of diseases classified elsewhere; E66.9 Obesity, unspecified; F32.A Depression, unspecified; I10 Essential (primary) hypertension; J45.909 Unspecified asthma, uncomplicated; R63.4 Abnormal weight loss; N39.0 Urinary tract infection, site not specified; D75.839 Thrombocytosis, unspecified; Z68.37 Body mass index [BMI] 37.0-37.9, adult; F41.9 Anxiety disorder, unspecified; G47.00 Insomnia, unspecified; G89.3 Neoplasm related pain (acute) (chronic); M77.32 Calcaneal spur, left foot; K58.0 Irritable bowel syndrome with diarrhea; M19.90 Unspecified osteoarthritis, unspecified site; K64.9 Unspecified hemorrhoids; M79.7 Fibromyalgia; N28.1 Cyst of kidney, acquired; Z79.899 Other long term (current) drug therapy; Z86.0100 Personal history of colon polyps, unspecified; Z90.49 Acquired absence of other specified parts of digestive tract; Z90.710 Acquired absence of both cervix and uterus; Z96.652 Presence of left artificial knee joint; Z53.1 Procedure and treatment not carried out because of patient's decision for reasons of belief and group pressure; Z88.8 Allergy status to other drugs, medicaments and biological substances
CPT/HCPCS: 36410; 36415; 71046; 71275; 76937; 77300; 77301; 77332; 77338; 80048; 80053; 81001; 83690; 83735; 83880; 84145; 84484; 85025; 85027; 85379; 85610; 85730; 87077; 87086; 87186; 87449; 93005; 94760; 96361; 96365; 96366; 96375; 99285

== ENCOUNTER → 2025-01-26 | Outpatient (CLI) | payer MEDICARE ==
--- NOTE | 2025-01-26 22:34 | PE ---
EXAMINATION TYPE: PET CT fusion skull to thigh DATE OF EXAM: 01/26/2025 COMPARISON: Prior PET/CT November 2024 HISTORY: Rectal cancer diagnosed November 2024 completed radiation treatment in January. TECHNIQUE: Following the intravenous administration of 11.48 mCi of F-18 FDG, whole body images are performed from the skull base to the midthigh. Images are reviewed on the computer in the coronal, a xial, and sagittal planes. Reconstructed rotating images are created on independent workstation and reviewed on the computer. A localization and attenuation correction CT is performed in conjunction with the PET scan. Blood glucose level equals 105. SCAN: Subsequent Scan FINDINGS: SKULL BASE AND NECK: No areas of abnormal hypermetabolic uptake. CHEST, MEDIASTINUM, AND HILAR REGION: No areas of abnormal hypermetabolic uptake ABDOMEN AND PELVIS: Persistent but improved abnormal wall thickening and/or mass in the rectum with i mproved but persistent abnormal hypermetabolic uptake identified. MaxSUV is 24.14 versus 44.0 on zuleyka or study. No new or persistent abnormal hypermetabolic pelvic or left groin lymph nodes. No new areas of abnormal hypermetabolic uptake in the abdomen or pelvis. Normal excretion is seen. OSSEOUS STRUCTURES: No area of abnormal hypermetabolic uptake. OTHER CT: Bilateral aphakia is redemonstrated. Persistent low dense left thyroid nodule. Elevated rig ht hemidiaphragm is redemonstrated. Multiple gallstones redemonstrated. Extensive surgical change to bowel loops in the lower abdomen and central upper pelvis. Scattered small bilateral pelvic phleboliths are seen. IMPRESSION: Partial positive treatment response is seen as detailed above. [facility], , 01/26/2025 10:31 PM
== END | disposition home or self-care (01) ==
LOC: RADPETMAIN 13:06
PROVIDERS: ATTEND Internal Medicine Hematology & Oncology
DX: C20 Malignant neoplasm of rectum (principal); K80.20 Calculus of gallbladder without cholecystitis without obstruction
CPT/HCPCS: 78815; A9552